=== PATIENT | male | born 1940 | race Caucasian/White ===

== ENCOUNTER 2018-05-07 09:31 | Inpatient (IN) ==
--- NOTE | 2018-05-07 09:59 | PROVIDER DOCUMENTATION ---
HPI-General Adult - General Chief Complaint: Rib Pain Stated Complaint: fall Time Seen by Provider: 05/07/18 09:55 Source: patient, old records Allergies/Adverse Reactions: Patient Allergies Allergy/AdvReac Type Severity Reaction Status Date / Time lisinopril Allergy Intermediate HIVES Verified 05/12/17 10:52 meperidine HCl * Allergy Intermediate Unknown Verified 05/12/17 10:52 [From Demerol] Home Medications: Home Medication List Medication Instructions Recorded Confirmed Last Taken Type Apixaban [Eliquis] 5 mg PO BID 04/27/17 05/07/18 04/26/17 History Omeprazole [Prilosec] 40 mg PO DAILY capsule 05/20/17 05/07/18 Unknown Rx Escitalopram [Lexapro] 1 tab PO DAILY 05/07/18 05/07/18 Unknown History Levetiracetam 1 tab PO DAILY 05/07/18 05/07/18 Unknown History Melatonin/Pyridoxine [Melatonin 5 1 each PO QHS 05/07/18 05/07/18 Unknown History mg Tablet] - History of Present Illness -Gen Adult Nature of Presenting Problems: pt w/ cc: of fall yest afternoon. helped to feet by his , initially 'ok' but later in the evening had incr pain and worsening balance problem. hx of latter w/ frequent falls, walks w/ walker and behind w/ tethering belt. per had been doing better w/ last fall sev'l mos ago until yesterday. denies syncope. has R hemiparesis complicating prior CVA. takes apixaban but denies hx of arrhythmias. on Keppra w/ ? hx of seizures characterized as black out-staring spells. hx of Type 2 DM, but currently on no Rx for latter. pt currently denies diff breathing or abd pain, but cc: pain in R ribs and R hip. last adm 1 yr ago: ADMISSION DATE: 05/13/2017 DISCHARGE DATE: 05/20/2017 HISTORY: This is a 76-year-old, history of coronary artery disease, recent CABG done in 03/06/2017, history of hypertension, hyperlipidemia, lung nodule, lung cancer, had been treated in the past. The patient reports that he has been short of breath and increasing weakness, especially on his right side. He has had several falls and he is not able to do well at home. His is not able to help him walk. Concerned about the right-sided weakness , concerned about his shortness of breath. REVIEW OF PAST MEDICAL HISTORY: 1. Hypertension. 2. Diabetes mellitus type 2. 3. Hyperlipidemia. 4. Lung cancer. 5. Coronary artery disease. CT head revealed L cerebral encephalomalacia suggx stroke/ischemic injury. Review of Systems - Adult - REVIEW OF SYSTEMS - ADULT Constitutional: reports: no symptoms reported Eyes: reports: no symptoms reported Ears, Nose, Mouth & Throat: reports: no symptoms reported Cardiovascular: reports: no symptoms reported Respiratory: reports: no symptoms reported Gastrointestinal: reports: no symptoms reported Genitourinary: reports: no symptoms reported Musculoskeletal: reports: see HPI Integumentary: reports: no symptoms reported Neurological: reports: see HPI Psychiatric: reports: no symptoms reported Endocrine: reports: no symptoms reported Hematologic/Lymphatic: reports: no symptoms reported Allergic/Immunologic: reports: no symptoms reported All Other Systems: Reviewed and Negative Past History - Adult - PAST MEDICAL HISTORY-ADULT Review of Records: reports: Old Records Reviewed Major Childhood Illnesses: reports: denies history Cardiovascular: reports: blood clots, CAD, HTN, hyperlipidemia Respiratory: reports: cancer Gastrointestinal: reports: denies history Obstetrical/Gynecological: reports: denies history Genitourinary: reports: denies history Musculoskeletal: reports: denies history Neurological: reports: CVA Endocrine/Immune: reports: Diabetes Other Conditions: reports: other - PRIOR SURGERIES/PROCEDURES Surgical/Procedure History: reports: CABG - IMMUNIZATION STATUS Childhood Immunizations: See Nurse Assessment Flu Vaccine: See Nurse Assessment - FAMILY HISTORY Family History: reviewed, not pertinent Physical Exam-General - PHYSICAL EXAM-ADULT Initial Vital Signs Reviewed: Yes - CONSTITUTIONAL General Appearance: alert, no apparent distress - EYES Eyes: PERRL/EOMI. negative: photophobia, sclera injected, scleral icterus - HEAD, EARS, NOSE, MOUTH & THROAT HENMT: normocephalic/atraumatic, moist mucous membranes, normal ENT inspection - NECK Neck: non-tender, full range of motion - RESPIRATORY Respiratory: lungs clear, normal breath sounds, other (tender in anterior- inferior R ribs, no ecchymosis or obv sign of injury.). negative: retractions, splinting, crepitus - CARDIOVASCULAR Cardiovascular: normal peripheral pulses, regular rate, rhythm - GASTROINTESTINAL (ABDOMEN) Abdominal Exam: normal bowel sounds, non tender, soft - LYMPHATIC Lymphatic: no adenopathy - MUSCULOSKELETAL Back Exam: normal inspection, no CVA tenderness, no vertebral tenderness, other (skin tear R olecranon; tiny abrasion PIP jx R #5 hand) Extremity: normal range of motion Peripheral Pulses: radial (R): 2+, radial (L): 2+ - SKIN Integumentary: normal turgor, warm/dry (slight pallor). negative: cyanosis, jaundice - NEUROLOGIC Neurologic: corrosion control fitter II-XII nml as tested, focal weakness (residual R hemiparesis leg > UE) Progress - PLAN OF CARE/RESULTS Progress/Plan/Lab Results: Vital Signs - 8 hr 05/07/18 09:42 Pulse Rate 76 Respiratory Rate 18 Blood Pressure 153/53 O2 Sat by Pulse Oximetry 91 L imaging shows normal hip but fx of RIGHT 8th & 10th ribs, with concurrent very large LEFT pleural effusion and pneumonia or atelectasis (pt had small-moderate L pl effusion 2017). will discuss w/ Dr. Palencia. Result Diagrams: 05/07/18 20:15 05/07/18 11:19 - CONSULTS/PCP/HOSPITALIST Notification Time Discussed: 11:56 Reason/Comments: discussed findings w/ Dr. Palencia who will see the patient here Consult Disposition: Will see in ED Departure - Departure Date of Disposition Decision: 05/07/18 Time of Disposition Decision: 15:50 DIAGNOSIS: Multiple rib fractures, Frequent falls, Pleural effusion, left Disposition: ADMITTED INPATIENT 09 Certified Medical Emergency: Emergent Condition: Stable - Critical Care Note This patient required my direct & personal management of CC.: No Attestation - Physician/ JOHANN Attestation The physician spent face to face time with patient:: Yes Advanced Practice Provider documentation review:: Supervising physician onsite and consulted in the evaluation and care of this patient. The physician did have a face to face encounter with the patient.
--- NOTE | 2018-05-07 11:02 | Diag Imaging Result Doc PS360 ---
EXAM: XRAY HIP UNILATERAL RT 05/07/2018 HISTORY: fall, trauma, pain TECHNIQUE: Right hip two views COMMENT: The hip joint spaces well-maintained. There is no evidence of fracture or dislocation. There is arteriosclerosis. IMPRESSION: No acute bony abnormality. Electronically signed by Lauro Bass 05/07/2018 11:00 AM
--- NOTE | 2018-05-07 11:02 | Diag Imaging Result Doc PS360 ---
EXAM: RIBS UNILAT W/PA CHEST RIGHT 05/07/2018 HISTORY: fall, trauma, pain TECHNIQUE: PA chest with right rib series 5 views COMMENT: There is a large left pleural effusion and a smaller right pleural effusion. Compared to the previous study of 05/13/2017 there is near complete opacification of the left hemithorax and there is increased alveolar and interstitial opacity throughout the right lung. There is a cardiac loop recorder on the left. There are numerous surgical clips to the left the midline and there are sternotomy wires. No evidence of pneumothorax is present. There is minimally displaced fracture of the distal 10th rib on the right. Some deformity of the distal eighth rib is also present which may be due to fracture. IMPRESSION: 1. Large left pleural effusion with pneumonia and/or atelectasis. 2. Pulmonary edema. 3. Fractures of the distal eighth and 10th ribs on the right. Electronically signed by Lauro Bass 05/07/2018 10:59 AM
[2018-05-07 11:53] LABS: AGAP 9; ALB/GLOB RATIO 0.8; ALBUMIN 3.1 g/dL (3.5-5.0); ALKALINE PHOSPHATASE 93 U/L (32-122); BUN 15 mg/dL (8-22); CALCIUM 8.3 mg/dL (8.8-10.2); CHLORIDE 95 mmol/L (98-107); COSMO 265; CREATININE 0.5 mg/dL (0.7-1.2); ESTIMATED GFR > 60; GLUCOSE 120 mg/dL (70-104); GOT 12 U/L (10-34); GPT 7 U/L (10-44); MAGNESIUM 1.8 mg/dL (1.5-2.7); POTASSIUM 4.3 mmol/L (3.5-5.1); SODIUM 131 mmol/L (136-145); TCO2 27 mmol/L (25-35); TOTAL BILIRUBIN 0.22 mg/dL (0.20-1.00); TOTAL PROTEIN 7.1 g/dL (6.3-8.3)
[2018-05-07] MEDS ORDERED: PERCOCET-10 PO ONE (12:26)
[2018-05-07 12:35] LABS: BASO# 0.03 X1000 (0.0-0.2); BASO% 0.3 % (0.0-0.8); EOS# 0.28 X1000 (0.0-0.7); EOS% 2.4 % (0.0-10.0); HEMOGLOBIN 8.7 g/dL (14.0-18.0); IMM GRAN# 0.04 X1000 (0.0-0.04); IMM GRAN% 0.3 % (0.0-0.5); LYMPH% 12.1 % (20.5-51.1); MCH 17.9 PG (27-31); MCHC 28.1 g/dL (33-37); MCV 63.8 FL (81-99); MONO# 0.68 X1000 (0.11-0.59); MONO% 5.9 % (1.7-9.3); MPV 9.5 FL (7.4-10.4); NEUT# 9.18 X1000 (1.4-6.5); PLT 397 X1000 (130-400); RBC 4.86 XMIL (4.7-6.1); RDW 17.3 % (11.5-14.5); WBC 11.61 X1000 (4.8-10.8)
[2018-05-07 12:44] LABS: BANDS 6 % (0-1); LYMPHS 16 % (21-51); MONO 4 % (1-9); SEGS 74 % (42-75)
[2018-05-07 12:45] LABS: ANISOCYTOSIS 1+; HYPOCHROM 1+; MICROCYTOSIS 2+; POIKILOCYTOSIS 1+
--- NOTE | 2018-05-07 13:59 | HISTORY AND PHYSICAL ---
HISTORY OF PRESENT ILLNESS: He said for the last 2 weeks he has noticed increased dyspnea, increased shortness of breath. The last 3 or 4 days he has fallen quite a bit more and he did fall today and broke some ribs. His rib x-rays revealed left large pleural effusion with pneumonia or atelectasis, pulmonary edema, fractures of the distal 8th and 10th rib on the right. He is in quite a bit of pain, increased dyspnea. He did have an x-ray of his right hip 2 views, no acute bony abnormality. He denies any fever or chills. Mainly the shortness of breath and of course, the right-sided pain after the fall. Denies any previous pleuritic pain. No real orthopnea or paroxysmal nocturnal dyspnea. PAST MEDICAL HISTORY: 1. Hypertension. 2. Diabetes mellitus type 2. 3. Hyperlipidemia. 4. Lung cancer. 5. Coronary artery disease. PAST SURGICAL HISTORY: 1. CABG done in 03/06/2017 at [facility] and at that time I believe he had a left pleural effusion as well. I believe they tapped the effusion. I think it was transudative if I remember the report. I do remember we were at one point watching or observing a questionable mass in his lungs. This was before his bypass surgery back in 2017 or 2016. ALLERGIES: Allergic to lisinopril as well as meperidine and hydrochlorothiazide. SOCIAL HISTORY: No cigarette smoking, alcohol or drugs. FAMILY HISTORY: Positive for diabetes mellitus. REVIEW OF SYSTEMS: General: Up to about two weeks ago, he was making progress and getting a little stronger. HEENT: Denies any change in visual or hearing acuity. No neck pain. Respiratory: No increased work of breathing and dyspnea until 2 weeks ago and it has just progressively gotten worse. Increased dyspnea with exertion. General weakness seems to have gotten worse. Balance is worse in the last couple of weeks and he has fallen several times in last couple of days. Cardiovascular: No chest pain or tachy palpitation. Gastrointestinal and Genitourinary: No gross hematuria or dysuria. No change in bowels or urination. Immunologic/hematologic: No significant history. PHYSICAL EXAMINATION: GENERAL: Well developed, well nourished, thin white male. VITALS: Afebrile, pulse 73, respirations 18, blood pressure 159/70. HEENT: Pupils are equal and round. Oral and nasal mucosa unremarkable. Conjunctivae pink, sclerae clear. Tympanic membranes intact. NECK: Supple without adenopathy, thyromegaly. CVP less than 6 cm. ABDOMEN: Soft, nondistended, nontender. EXTREMITIES: Without clubbing, cyanosis, or edema. SKIN: Warm and dry. Conjunctivae, oral mucosa unremarkable. HEIGHT/WEIGHT: Weight 180 pounds height 5 feet 11 inches. LABORATORY: White count 11,610, hematocrit 31, platelet count 397,000. Sodium 131, potassium 4.3, chloride 95, BUN 15, creatinine 0.5, albumin was 3.1. Hip x-ray which was right hip, 2 views, no bony abnormality. X-ray of the ribs with rib detail, large left pleural effusion with pneumonia or atelectasis, pulmonary edema, fracture of the distal 8th and 10th rib on the right. ASSESSMENT AND PLAN: 1. Recent falls with increased weakness and fractured ribs on the right. 2. Large left pleural effusion with atelectasis. It appears that entire left side has been wallace out. I am going to ask Pulmonary to help follow. I think Dr. Trevizo has seen him in the past. 3. Coronary artery disease, status post CABG. I do not see any evidence of active ischemia. 4. Diabetes mellitus type 2. We will check pattern sugars. 5. History of hypercholesterolemia. 6. History of hypertension. 7. Transaminases were normal, albumin was 3.1. I will go ahead and empirically put him on some antibiotic for possible pneumonia and I will give him some bronchodilators and ask Dr. Trevizo to help. cc: Km Palencia MD
[2018-05-07] MEDS ORDERED: ZOFRAN IV PRN (14:57)
[2018-05-07] MEDS ORDERED: ZOSYN 4.5 GM in NS 100 ML IV SCH (15:00)
[2018-05-07] MEDS: NS 1,000 ML IV SCH (15:20)
[2018-05-07] MEDS: PERCOCET-10 PO PRN (18:00)
--- NOTE | 2018-05-07 20:15 | Diag Imaging Result Doc PS360 ---
CT THORAX W/CONTRAST - 05/07/2018 INDICATION: hx of lung cancer, effusion, rib fracture COMPARISON: 04/05/2017 FINDINGS: There is an increasing, loculated pleural effusion at the lateral left lung base. This occupies about 40% of the lung. There is a trace right pleural effusion. There is mild cardiomegaly. There is significant consolidation of both lung bases. There is interstitial pulmonary edema bilaterally. There is some mild paratracheal adenopathy similar to prior. No visible fractures. There are sternotomy wires. IMPRESSION: 1. Moderate, probably loculated effusion at the lateral left lung base. 2. Pulmonary edema. 3. Consolidation of the lung bases consistent with atelectasis and/or pneumonia. This exam was performed using automated exposure control, adjustment of mA or kV according to patient size, and/or use of iterative reconstruction technique Electronically signed by Tony Mccollum 05/07/2018 8:13 PM
[2018-05-07 20:47] LABS: BASO# 0.03 X1000 (0.0-0.2); BASO% 0.2 % (0.0-0.8); EOS# 0.52 X1000 (0.0-0.7); HEMOGLOBIN 8.4 g/dL (14.0-18.0); IMM GRAN# 0.03 X1000 (0.0-0.04); IMM GRAN% 0.2 % (0.0-0.5); LYMPH# 1.53 X1000 (1.2-3.4); LYMPH% 11.9 % (20.5-51.1); MCH 17.4 PG (27-31); MCHC 27.1 g/dL (33-37); MCV 64.3 FL (81-99); MONO# 0.93 X1000 (0.11-0.59); MONO% 7.2 % (1.7-9.3); MPV 9.6 FL (7.4-10.4); NEUT# 9.85 X1000 (1.4-6.5); NEUT% 76.5 % (42.2-75.2); PLT 390 X1000 (130-400); RBC 4.82 XMIL (4.7-6.1); RDW 17.3 % (11.5-14.5); WBC 12.89 X1000 (4.8-10.8)
[2018-05-07 21:40] LABS: BANDS 1 % (0-1); EOS 2 % (1-10); LYMPHS 9 % (21-51); MONO 3 % (1-9); SEGS 85 % (42-75)
[2018-05-07 21:41] LABS: ANISOCYTOSIS 1+; HYPOCHROM 1+; MICROCYTOSIS OCCASIONAL; OVALOCYTES OCCASIONAL; POIKILOCYTOSIS 1+
[2018-05-07] MEDS: ELIQUIS PO SCH (22:24)
[2018-05-07] MEDS: MELATONIN PO SCH (22:24)
[2018-05-07] MEDS: ZOSYN 4.5 GM in NS 100 ML IV SCH (22:24)
[2018-05-08] MEDS: ZOSYN 4.5 GM in NS 100 ML IV SCH ×4 (04:28→22:42)
--- NOTE | 2018-05-08 04:48 | PULMONOLOGY CONSULTATION ---
DATE: 05/07/2018 REQUESTING PHYSICIAN: Dr. Km Palencia. REASON FOR CONSULTATION: To help evaluate and treat. HISTORY OF PRESENT ILLNESS: Mr. Benitez is a 78-year-old white male, a never smoker, who was evaluated in my clinic 11/16/2014. The patient had a biopsy-proven non-small cell carcinoma, with a 2.2 cm lesion in the right upper lobe, with an ipsilateral lymph node measuring 2.2 cm with an SUV of 3.7. Right upper lobectomy was recommended. The patient was being evaluated by Dr. Sergo Sifuentes. The patient elected not to have surgery, and underwent stereotactic body radiotherapy. He was followed and treated by Dr. Joshi. He has not had a subsequent followup in my office. He denies recent PET scan. I did not see his last chest x-ray prior to this admission, but it was in April 2017, which revealed cardiomegaly and small bilateral effusions. His last CT scan of the thorax was performed in March 2017, which revealed moderate effusions, cardiomegaly, possible increased size of right upper lobe mass. The patient has had increased shortness of breath over the last several weeks. He denies fevers or chills. He denies cough or sputum production. PAST MEDICAL HISTORY/PROBLEM LIST: 1. Status post radiation therapy for a stage II lung cancer, as per above. 2. Status post coronary artery bypass grafting. 3. Status post CVA. 4. Dyslipidemia. SOCIAL HISTORY: The patient is a never smoker. FAMILY HISTORY: Notable for diabetes and hypertension. REVIEW OF SYSTEMS: Difficult with mental status. He has difficulty forming a thought process. PHYSICAL EXAMINATION: General: Reveals a well-developed, well-nourished male, resting comfortably, and in no distress. Vital Signs: Blood pressure 160/47, heart rate 82, respiratory rate 16, oxygen saturation 87% on 4 L. HEENT: Pupils are equal and reactive. Oropharynx is clear. Neck: Supple. Chest: Reveals diminished breath sounds bilaterally. Cardiac: S1-S2. Abdomen: Soft. Extremities: Without edema. LABORATORIES: Chest x-ray reveals significant effusion on the left, with fractures of distal 8th and 10th ribs on the right. IMPRESSION: A 78-year-old with history of lung cancer, chronic hypoxemic respiratory failure, progressive increased shortness of breath, left greater than right pleural effusions, with significant weight loss over the last year. RECOMMENDATION: 1. CT scan of the thorax to evaluate pleural effusions. 2. Continue oxygen for hypoxemic respiratory failure. 3. Recommend discontinuing Eliquis if possible, so that thoracentesis can be performed by Radiology early next week. 4. Check a CEA level. 5. Prognosis is guarded. cc: Cory Trevizo MD
[2018-05-08] MEDS: ELIQUIS PO SCH (07:30)
[2018-05-08] MEDS: LEXAPRO PO SCH ×2 (07:30→08:14)
[2018-05-08] MEDS: PERCOCET-10 PO PRN ×3 (07:30→15:40)
[2018-05-08] MEDS: KEPPRA PO SCH ×2 (07:30→08:14)
[2018-05-08] MEDS: PRILOSEC PO SCH ×2 (07:31→08:14)
--- NOTE | 2018-05-08 09:17 | PROGRESS NOTE ---
DATE: 05/08/2018 SUBJECTIVE: Mr. Benitez finally got some sleep. He is having some leg pain. We did give him some Percocet. OBJECTIVE: Vital Signs: His temperature is 98.2 degrees, pulse 74, respirations 18, blood pressure 154/47. Eyes: Pupils are equal. Neck: No distended neck veins. Lungs: Clear in all lung wilkins. Cardiovascular: Regular rhythm and rate without murmur or S3. Abdomen: Soft. Skin: Warm, dry. : Urine output is 1400 mL. X-RAYS: He had a CT of his chest and yesterday moderate probably loculated effusion in the lateral left lung base, pulmonary edema, consolidation of lung bases consistent with atelectasis or pneumonia. ASSESSMENT AND PLAN: 1. Status post radiation treatment for stage II lung cancer. The patient had a biopsy-proven non- small cell lung cancer with a 2.2 cm lesion in the right upper lobe. Ipsilateral lymph node measuring 2.2 cm and right upper lobectomy was recommended. The patient evaluated by Dr. Sergo Sifuentes. Elected to have surgery and underwent stereotactic body radiotherapy. Treated by Dr. Joshi. Had subsequent follow-up with recent PET scan. Revealed cardiomegaly and small pleural effusions. His last CT of the thorax was in March 2017 and repeated yesterday. Possible increased size of right upper lobe mass. He has had increased shortness of breath. He has lost maybe 40 pounds over this last year. So, we are going to try and tap his pleural fluid. The left is greater than the right. We are holding his Eliquis. 2. He has a history of coronary artery disease status post CABG. The CABG was done I think in 03/06/2017. 3. Diabetes mellitus type 2. We will follow pattern sugars. 4. History of hypertension. LABS: From yesterday, hematocrit 31, hemoglobin 8.4, so he does have an anemia which appears stable. Sodium 131, potassium 4.3, chloride 95, BUN 15, creatinine 0.5. Review of his orders: He is getting fluid right now of normal saline at 65 mL an hour. We will stop his Eliquis. He is on piperacillin 4.5 g IV q. 6 hours. Continue his Keppra 500 mg a day and Lexapro 10 mg a day. The Keppra he is taking I believe for possible seizures in the past. cc: Km Palencia MD
[2018-05-08] MEDS: NS 1,000 ML IV SCH ×2 (12:00→23:34)
[2018-05-08] MEDS: MELATONIN PO SCH (22:42)
[2018-05-09] MEDS: ZOSYN 4.5 GM in NS 100 ML IV SCH ×5 (03:39→21:02)
[2018-05-09] MEDS: NS 1,000 ML IV SCH ×2 (03:40→17:37)
--- NOTE | 2018-05-09 03:41 | PULMONOLOGY PROGRESS NOTE ---
DATE: 05/08/2018 SUBJECTIVE: The patient is awake and alert. He has not yet been out of bed. He reports his appetite and breathing have improved. OBJECTIVE: Vital Signs: The patient has been afebrile for the last 24 hours. Blood pressure 148/56, heart rate 80, respiratory rate 18, oxygen saturation 94% on nasal cannula. HEENT: Pupils are equal and reactive. Oropharynx is clear. Neck: Supple. Chest: Reveals diminished breath sounds in both lung bases. Cardiac: S1-S2. Abdomen: Soft, without hepatosplenomegaly. Extremities: Reveal trace edema. LABORATORIES: CT scan of the thorax is reviewed. There is trace pleural effusion on the right, with some pleural thickening on the right, and some nonspecific infiltrates right upper lobe, with mild paratracheal adenopathy. He has a large left-sided pleural effusion, with some consolidation in the left, greater than right, lung bases. IMPRESSION: A 78-year-old with history of lung cancer, who presents with abnormal weight loss, bilateral effusions, with areas of consolidation, and chronic hypoxemic respiratory failure. RECOMMENDATIONS: 1. Agree with discontinuing Eliquis, as you have done. 2. Continue oxygen for hypoxemic respiratory failure. 3. Recommend thoracentesis on Thursday to evaluate etiology for his pleural effusions. 4. Prognosis remains guarded. cc: MD Km Harrison MD
[2018-05-09] MEDS: PRILOSEC PO SCH (06:30)
[2018-05-09] MEDS: PERCOCET-10 PO PRN ×4 (07:19→20:32)
--- NOTE | 2018-05-09 08:16 | PROGRESS NOTE ---
DATE: 05/09/2018 SUBJECTIVE: Mr. Benitez says he feels like he is breathing better. He is comfortable, had a good night's sleep last night. Did not have much of an appetite. His bowels are moving well. He hurt his right leg when he fell and so his right leg and hip are sore. OBJECTIVE: Vital Signs: Temperature 98.2 degrees, pulse 72, respirations 18, blood pressure 140/54. HEENT: Pupils are equal and round. Lungs: Clear in all lung wilkins. Cardiovascular Examination: Regular rhythm and rate without murmur or S3. Abdomen: Soft. Skin: Warm and dry. Is and Os: Urine output 1300 mL. ASSESSMENT AND PLAN: 1. History of lung cancer. Presented with abnormal weight loss, bilateral effusions, areas of consolidation, chronic hypoxemic respiratory failure. We have held the Eliquis. I think the plan is to do thoracentesis Thursday to evaluate the pleural effusion. 2. Chronic obstructive pulmonary disease with chronic obstructive pulmonary disease exacerbation, with the pleural fluid. 3. History of coronary artery disease, status post coronary artery bypass graft. This was on 03/06/2017. No sign of active cardiac ischemia. 4. Diabetes mellitus type 2. Continue to check pattern of sugars. 5. Hypertension. REVIEW OF HIS MEDICATIONS: He is taking melatonin 5 mg at night, Lexapro 10 mg a day. He is on Keppra 500 mg daily. I think this was for the history of seizure in the past. He is on Zosyn 4.5 g q.6. cc: Km Palencia MD
[2018-05-09] MEDS: KEPPRA PO SCH (08:32)
[2018-05-09] MEDS: LEXAPRO PO SCH (08:32)
--- NOTE | 2018-05-09 17:38 | PULMONOLOGY PROGRESS NOTE ---
DATE: 05/09/2018 SUBJECTIVE: Patient is awake, alert, and conversant. Nursing reports he has had some periods of confusion. He denies shortness of breath. OBJECTIVE: Vital signs: The patient has been afebrile for the last 24 hours. Blood pressure 150/58, heart rate 70, respiratory rate 18, oxygen saturation 94%. HEENT: Pupils are equal and reactive. Oropharynx is clear. Neck: Supple. Chest: Diminished breath sounds, left greater than right base. Cardiac: S1, S2. Abdomen: Soft. Extremities: Without edema. DIAGNOSTIC STUDIES: No new chemistries or CBC. IMPRESSION: A 78-year-old with: 1. History of lung cancer. 2. Hypoxemic respiratory failure. 3. Bilateral effusions with consolidate areas of parenchymal consolidation. 4. Abnormal weight loss. The patient was on Eliquis, but this has been discontinued. PLAN: 1. Continue oxygen for hypoxemic respiratory failure. 2. Arrange for thoracentesis tomorrow morning. Order has been placed, along with all of the labs to be analyzed. 3. Prognosis remains guarded. cc: MD Km Harrison MD
[2018-05-09] MEDS: MELATONIN PO SCH (20:32)
[2018-05-10] MEDS: ZOSYN 4.5 GM in NS 100 ML IV SCH ×4 (04:27→22:27)
[2018-05-10] MEDS: PERCOCET-10 PO PRN ×2 (04:47→20:25)
--- NOTE | 2018-05-10 09:01 | PROGRESS NOTE ---
DATE: 05/10/2018 SUBJECTIVE: Mr. Benitez is about the same. States his breathing is about the same. Comfortable. His bowels are moving okay, according to his report. He does not have much appetite at all over the last several days. OBJECTIVE: Vital Signs: Temperature 98.8 degrees, pulse 70, respirations 19, blood pressure 152/54. HEENT: Pupils are equal and round. Neck: No distended neck veins. Lungs: With diminished breath sounds at both bases. Otherwise clear. Cardiovascular Examination: Regular rhythm and rate without murmur or S3. Abdomen: Soft. Skin: Warm, dry. Is and Os: Urine output is 1300 mL. ASSESSMENT AND PLAN: 1. Bilateral effusions and some consolidated areas. He is scheduled for an ultrasound-guided paracentesis today. 2. History of lung cancer. He was seen in Dr. Trevizo's clinic on 11/16/2014, biopsy proven non- small cell carcinoma with a 2.2 cm lesion in the right upper lobe, ipsilateral lymph node measuring 2.2 cm with an SUV of 3.7. Right upper lobectomy was recommended. The patient was evaluated by Dr. Sergo Sifuentes. Decided not to have surgery and underwent stereotactic body radiotherapy, followed by and treated by Dr. Joshi. He received a PET scan in followup in April of 2017. He had cardiomegaly and bilateral pleural effusions. His last CT scan of the thorax was March 2017. It revealed moderate effusions, cardiomegaly, and possible increased size of the right upper lobe mass. 3. Status post cerebrovascular accident. 4. History of coronary artery disease. No sign of active ischemia. 5. He is on Keppra only once a day, I think for a history of questionable seizures in the past following his cerebrovascular accident. He is on piperacillin 4.5 g every 6 hours. I will get physical therapy to work with him some. He may need to go to rehab from here. cc: Km Palencia MD
[2018-05-10] MEDS: PRILOSEC PO SCH (10:24)
[2018-05-10] MEDS: LEXAPRO PO SCH (10:24)
[2018-05-10] MEDS: KEPPRA PO SCH (10:24)
[2018-05-10] MEDS: NS 1,000 ML IV SCH (10:24)
--- NOTE | 2018-05-10 14:01 | Diag Imaging Result Doc PS360 ---
EXAM: CHEST-2 VIEWS HISTORY: INSPIR AND EXPIRAT ATTEMTED BIOP TECHNIQUE: Inspiratory and expiratory chest, two views COMPARISON: 05/07/2018 FINDINGS: There is no left-sided pneumothorax. There are infiltrates throughout the lungs with atelectasis. Sternal wires and surgical clips. No cardiomegaly. There is pleural thickening/loculated collections similar to the prior study. IMPRESSION: No postprocedural pneumothorax. Electronically signed by Yong Zamudio 05/10/2018 1:59 PM
--- NOTE | 2018-05-10 14:06 | Diag Imaging Result Doc PS360 ---
EXAM: US THORACENTESIS W/IMAGE GUIDE HISTORY: large left effusion TECHNIQUE: Ultrasound-guided thoracentesis COMPARISON: None. FINDINGS: Prior to the procedure I discussed the risk and benefits with the patient. Primary risks include bleeding, infection, and pneumothorax. Questions were answered. Consent was given. The permit was signed. Ultrasound was used to localize the largest fluid collection. This area was cleaned and draped in the normal fashion. Lidocaine was used as a local anesthetic. Ultrasonography revealed thick tissue with very little fluid. The appearance of fluid on CT was actually shown by ultrasound to be very thick. Needle and catheter were advanced into this collection on the first attempt without difficulty. No fluid could be withdrawn. IMPRESSION: Ultrasound-guided thoracentesis with no immediate complication. No fluid obtained. Electronically signed by Yong Zamudio 05/10/2018 2:03 PM
[2018-05-10] MEDS ORDERED: DUONEB (A & A) INH ONE (16:29)
[2018-05-10 16:42] LABS: ALLEN TEST YES; BE 3.4 mmoll (-3.0-3.0); BLOOD TYPE ARTERIAL; HCO3-(ACT) 27.6 mmoll (20.0-26.0); METHB 0.6 % (0.0-1.5); O2(CT) 11.4 mL/dL (15.0-23.0); O2HB 95.9 % (95.0-99.0); PO2(98.6) 151 mmHg (60-100); SAMPLE BLOOD; SAO2 96.8 % (95.0-100.0); THB 8.2 g/dL (11.5-17.4); pH(98.6) 7.36 (7.35-7.45)
[2018-05-10 16:43] LABS: PCO2(98.6) 52 mmHg (35-45)
[2018-05-10 16:44] LABS: MODALITY NRB
--- NOTE | 2018-05-10 17:16 | Diag Imaging Result Doc PS360 ---
EXAM: CHEST-2 VIEWS HISTORY: inspiratory and expiratory chest TECHNIQUE: Chest inspiratory and expiratory chest two views COMPARISON: 1:55 PM FINDINGS: No interval change in the appearance of the chest. No pneumothorax identified. Electronically signed by Yong Zamudio 05/10/2018 5:14 PM
[2018-05-10] MEDS: MELATONIN PO SCH (20:26)
--- NOTE | 2018-05-10 20:45 | PULMONOLOGY PROGRESS NOTE ---
DATE: 05/10/2018 INTERIM HISTORY: The patient went down for a thoracentesis. A catheter was introduced into the left hemithorax by Dr. Yong Zamudio, but due to the viscosity of the fluid, no fluid could be aspirated. OBJECTIVE: Vital Signs: The patient has been afebrile for the last 24 hours. Blood pressure 168/42, heart rate 81, respiratory rate 22, oxygen saturation 98% on non-rebreather. HEENT: Pupils are equal and reactive. Oropharynx is clear. Neck: Supple. Chest: Reveals diminished breath sounds left greater than right base. Cardiac exam: S1-S2. Abdomen: Soft with mild increased tympany. Extremities: Reveal trace edema. IMPRESSION: A 78-year-old with: 1. Acute hypoxemic respiratory failure. 2. History of lung cancer. 3. Coronary artery disease status post bypass grafting. 4. Bilateral pleural effusions with extremely viscous fluid in the left hemithorax. 5. Areas of parenchymal consolidation. 6. Abnormal weight loss. PLAN: 1. I discussed the case with Mr. Benitez's . An aggressive approach would require a thoracotomy. This would be an increased risk for Mr. Benitez. I do not believe he is capable of making the decision. She will discuss this with her sons to decide if we will pursue an aggressive approach. 2. Continue oxygen for hypoxemic respiratory failure. PROGNOSIS: Guarded. cc: MD Km Harrison MD
[2018-05-10] MEDS: DUONEB (A & A) INH SCH ×2 (20:58→23:15)
[2018-05-11] MEDS: DUONEB (A & A) INH SCH ×6 (03:32→23:40)
[2018-05-11] MEDS: ZOSYN 4.5 GM in NS 100 ML IV SCH ×4 (04:23→22:46)
[2018-05-11] MEDS: NS 1,000 ML IV SCH ×2 (06:13→23:19)
[2018-05-11] MEDS: PRILOSEC PO SCH (08:53)
[2018-05-11] MEDS: LEXAPRO PO SCH (08:53)
[2018-05-11] MEDS: KEPPRA PO SCH (08:53)
--- NOTE | 2018-05-11 09:09 | PROGRESS NOTE ---
DATE: 05/11/2018 SUBJECTIVE: Mr. Benitez had a fairly unremarkable night, breathing comfortably at rest. I have had discussions with his and with him, Dr. Trevizo, and I think they would like to pursue a decortication for draining of the left lung. It is very thick fluid, unable to draw any back with pleurocentesis. OBJECTIVE: Vitals: Temperature is 97.6 degrees, pulse 115, respirations 15, blood pressure 152/77. Eyes: Pupils are equal. Neck: No distended neck veins. Lungs: Clear in all lung wilkins. Cardiovascular: Regular rhythm and rate without murmur or S3. Abdomen: Soft. Skin: Warm and dry. URINE OUTPUT: 2400 mL. IMAGING: Chest x-ray from yesterday, no interval change. No pneumothorax. This is following paracentesis. ASSESSMENT AND PLAN: 1. He went down for thoracentesis yesterday. Catheter was introduced in left hemothorax per Dr. Yong Zamudio. Due to viscosity of fluid, no fluid could be aspirated. I did have some long discussions with his . I believe we need to pursue a thoracotomy. We will ask Dr. Sergo Sifuentes and of course, Dr. Cory Trevizo who is on the case. I want to discuss with her sons and with her aggressive approach. Concerned if we are not able to clean up his fluid that his respiratory status will get worse. Continue supplementing O2. Continue bronchodilators at this time. 2. History of lung cancer. He said a right upper lobectomy was recommended, but he did undergo stereotactic radiotherapy by Dr. Joshi who he sees in follow up. Question on whether increase in the right side of his upper lobe mass. They had requested I get Dr. Joshi to help with recommendations. 3. Status post cerebrovascular accident. 4. History of coronary artery disease. 5. He is on Keppra I think for post cerebrovascular accident, questionable seizure. He is only taking it once a day. He is on Zosyn at this time 4.5 g q.6 hours, Lexapro 10 mg a day, Prilosec 40 mg a day, melatonin 5 mg at bedtime. cc: Km Palencia MD
--- NOTE | 2018-05-11 14:25 | CONSULTATION ---
DATE OF CONSULTATION: 05/11/2018 REASON FOR CONSULTATION: History of lung cancer. CONSULTING PHYSICIAN: Dr. Palencia. HISTORY OF PRESENT ILLNESS: I was asked to see Mr. Benitez today at the request of Mr. Benitez's . I treated him back in 2014 for an early stage lung cancer and she was concerned that his current problems may be related to that cancer. ASSESSMENT AND PLAN: I have reviewed his scan and reassured the patient's that the area that we treated has not grown at all since 2016. The abnormality on CT likely represents scar tissue here. I have encouraged her that when they drain the fluid from his lungs that they will check it for cancer cells and I will be happy to see him should they discover that this is the cause of his pleural effusion. At this point in time though, I see no obvious evidence of cancer recurrence. cc: MD Km Grace MD
[2018-05-11] MEDS: PERCOCET-10 PO PRN (14:26)
[2018-05-11] MEDS: MELATONIN PO SCH (20:04)
--- NOTE | 2018-05-11 22:40 | PULMONOLOGY PROGRESS NOTE ---
DATE: 05/11/2018 SUBJECTIVE: The patient is awake and alert. He has no new complaints. OBJECTIVE: General: The patient remains on high-flow oxygen. Vital Signs: He has been afebrile for the last 24 hours. Blood pressure 176/61, heart rate 76, respiratory rate 17, oxygen saturation 95%. HEENT: Pupils are equal and reactive. Oropharynx is clear. Neck: Supple. Chest: Reveals diminished breath sounds, left and right base. Cardiac: Increased rate, regular rhythm. Abdomen: Soft. Extremities: Without edema. LABORATORIES: No new laboratory data. IMPRESSION: 1. A 78-year-old with left greater than right pleural effusions, with extremely viscous fluid in the left hemithorax. 2. Acute hypoxemic respiratory failure. 3. History of lung cancer. 4. Coronary artery bypass grafting. 5. Abnormal weight loss. 6. Areas of parenchymal consolidation in the lung bases. PLAN: 1. After discussion with the patient and his , they would like to pursue drainage/decortication of the left chest. Family asked if a small incision could be made to access sample fluid. This could be performed, but would not likely give him relief or improve his pulmonary status. 2. Continue oxygen for hypoxemic respiratory failure. 3. Await surgical consultation. This has been placed for Dr. Sifuentes, by Dr. Palencia. cc: MD Km Harrison MD
[2018-05-12] MEDS: PERCOCET-10 PO PRN ×3 (02:17→23:28)
[2018-05-12] MEDS: DUONEB (A & A) INH SCH ×6 (02:30→23:27)
[2018-05-12] MEDS: ZOSYN 4.5 GM in NS 100 ML IV SCH ×4 (04:45→21:57)
--- NOTE | 2018-05-12 08:51 | PROGRESS NOTE ---
DATE: 05/12/2018 SUBJECTIVE: Mr. Benitez had a fair night, breathing comfortably at the present time. He remains afebrile. OBJECTIVE: Temperature 97.8, pulse 84, respirations 16, blood pressure 161/63. Pupils are equal. No distended neck veins. Lungs are clear in all lung wilkins. Cardiovascular: Regular rate without murmur or S3. Abdomen is soft. Skin is warm and dry. Urine output was 1280 mL. LABORATORY DATA: His labs reviewed from 05/07/2018. I checked a Chem 12, and a CBC <INC 00:00:52> again tomorrow. ASSESSMENT AND PLAN: 1. A 78-year-old with left greater than right pleural effusion, extremely viscous fluid in the left hemothorax. Dr. Sifuentes to evaluate. I would like to pursue drainage and decortication sedation of the left chest. The family is requesting a small incision and access the sample fluid and let them discuss that with Dr. Sifuentes. 2. Acute hypoxemic respiratory failure. He is on supplementary O2. No bronchospasm. 3. History of lung cancer that area in the right lung. Dr. Joshi evaluated and it appears to be about the same as far as size. 4. Coronary artery bypass grafting in the past. History of coronary artery disease. 5. Abnormal weight loss in the last year. 6. Areas of parenchymal consolidation in the lung bases. He is on Zosyn 4.5 g IV q.6. I am going to stop the Keppra; he is on 500 mg a day, which I do not think would be therapeutic. cc: Km Palencia MD MTDD
[2018-05-12] MEDS: PRILOSEC PO SCH (10:38)
[2018-05-12] MEDS: LEXAPRO PO SCH (10:39)
--- NOTE | 2018-05-12 11:55 | GENERAL SURGERY CONSULTATION ---
DATE: 05/12/2018 HISTORY OF PRESENT ILLNESS: Mr. Benitez is 78-year-old gentleman admitted on with increasing shortness of breath. He was discovered to have a low-density collection at the base of the left pleural space as well as circumscribed and appears to be compressing his left lung and may be contributing to his shortness of breath. However, previous CT thorax done last April. 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 Because of his shortness of breath and this low-density area in the left pleural space, I have been asked to evaluate him. Attempts have been made by radiologist to aspirate fluid, but unsuccessfully. PAST HISTORY: Hypertension, type 2 diabetes, hyperlipidemia, and coronary artery disease. He has had a previous coronary bypass 03/15. He apparently had a left pleural effusion subsequent to that bypass. It appears from previous chest x-rays that he may have had some fluid in the left pleural space before. MEDICATIONS: Listed. ALLERGIES: Lisinopril, meperidine and hydrochlorothiazide. SOCIAL HISTORY: He is . Does not smoke cigarettes or drink alcohol. FAMILY HISTORY: Pertinent for diabetes. REVIEW OF SYSTEMS: As noted above. PHYSICAL EXAMINATION: Vital Signs: He is afebrile. Heart rate 84, blood pressure is 182/69. Respiratory: 16. He has bilateral breath sounds diminished in the left base. Heart: Regular rate and rhythm. Abdomen: Soft. Trace peripheral edema. He is somewhat listless. Responds slowly. DIAGNOSTICS/LABORATORIES: White count 05/07 was 12,000. Gases on the 05/10, pH 7.36, pCO2 53, PO2 151 on 100% non-rebreather. ASSESSMENT: Well-defined low-density collection in the left inferior pleural space. I have discussed the difficulty and risk of a decortication with the family. They have requested that we do just simply a small incision in an attempt to drain the fluid and determine whether it is malignant. We can do pleural biopsy at the same time. We can proceed with this on 05/13. This will allow us to determine how well he tolerates anesthesia, so we discussed that. They understand and agree to proceed. cc: MD Km Bray MD [facility]
[2018-05-12] MEDS ORDERED: LASIX IV ONE (12:11)
--- NOTE | 2018-05-12 12:27 | PULMONOLOGY PROGRESS NOTE ---
DATE: 05/12/2018 SUBJECTIVE: Patient is awake and conversant. It is not clear that he is oriented. OBJECTIVE: Vital Signs: Blood pressure 182/69, heart rate 84, respiratory rate 16, oxygen saturation 92% on non-rebreather. HEENT: Pupils are equal and reactive. Oropharynx is clear. Neck: Supple. Chest: Reveals decreased breath sounds, left greater than right base. Cardiac exam: S1-S2. Abdomen: Soft. Extremities: Reveal trace edema. IMPRESSION: A 78-year-old with: 1. Increasing pleural effusions. 2. Acute hypoxemic respiratory failure. 3. Abnormal weight loss. 4. History of lung cancer. 5. History of coronary artery bypass grafting. Family has discussed surgery with Dr. Sifuentes. They have requested a limited thoracotomy. PLAN: 1. Limited thoracotomy for pathology evaluation. 2. Continue oxygen for hypoxemic respiratory failure. 3. Consider initiation of end of life discussions. cc: MD Km Harrison MD
[2018-05-12] MEDS: NS 1,000 ML IV SCH (16:04)
[2018-05-12] MEDS: MELATONIN PO SCH (20:11)
[2018-05-13] MEDS: ZOSYN 4.5 GM in NS 100 ML IV SCH ×4 (03:13→22:04)
[2018-05-13] MEDS: PERCOCET-10 PO PRN (03:13)
[2018-05-13] MEDS: DUONEB (A & A) INH SCH ×6 (03:33→23:41)
[2018-05-13 06:58] LABS: AGAP 9; ALB/GLOB RATIO 0.8; ALBUMIN 2.8 g/dL (3.5-5.0); ALKALINE PHOSPHATASE 75 U/L (32-122); BUN 13 mg/dL (8-22); CALCIUM 8.7 mg/dL (8.8-10.2); CHLORIDE 96 mmol/L (98-107); COSMO 279; CREATININE 0.6 mg/dL (0.7-1.2); ESTIMATED GFR > 60; GLUCOSE 121 mg/dL (70-104); GOT 8 U/L (10-34); GPT < 5 U/L (10-44); POTASSIUM 3.5 mmol/L (3.5-5.1); SODIUM 139 mmol/L (136-145); TCO2 34 mmol/L (25-35); TOTAL PROTEIN 6.3 g/dL (6.3-8.3)
[2018-05-13] MEDS: NS 1,000 ML IV SCH ×3 (08:02→16:56)
[2018-05-13] MEDS: PRILOSEC PO SCH (08:02)
[2018-05-13] MEDS: LEXAPRO PO SCH (08:02)
--- NOTE | 2018-05-13 08:12 | PROGRESS NOTE ---
DATE: 05/13/2018 SUBJECTIVE: Mr. Benitez had a poor night he had some episodes of delirium and feels short of breath. Plan is to undergo a procedure this morning to see if we can drain out some of the fluid in is left lung, which is apparently very viscous, and decide whether a complete thoracotomy is going to be warranted. OBJECTIVE: Vital Signs: Temperature 98.5 degrees, pulse 70, respirations 20, blood pressure 151/48. HEENT: Pupils are equal and round. Lungs: Clear in all lung wilkins. Cardiovascular: Regular rhythm and rate without murmur or S3. Abdomen: Soft. Skin: Warm and dry. LABORATORY DATA: From yesterday, sodium 139, potassium 3.5, chloride 96, BUN 13, creatinine 0.6, blood sugar 121. Calcium 8.7, AST 8, ALT less than 5, albumin 2.8. ASSESSMENT AND PLAN: 1. Increasing pleural effusions, very thick, so they are going to do a limited thoracotomy and I guess see if they can put in a chest tube. 2. Acute hypoxemic respiratory failure. 3. Abnormal weight loss. 4. History of lung cancer on the right. 5. History of coronary bypass grafting. So, he has a well-defined low-density collection of the left inferior space. so requested just simple small incision with attempt to drain the fluid and determine whether it is malignant, and do a pleural biopsy at that time, so that is going to happen today. cc: Km Palencia MD
[2018-05-13] MEDS ORDERED: FENTANYL ONE (13:46)
[2018-05-13] MEDS ORDERED: XYLOCAINE-MPF 2% ONE (13:47)
[2018-05-13] MEDS ORDERED: AMIDATE ONE (13:47)
[2018-05-13] MEDS ORDERED: QUELICIN (DOSE) ONE (13:47)
[2018-05-13] MEDS ORDERED: NORCURON ONE (13:51)
[2018-05-13] MEDS ORDERED: STERILE WATER INJ. ONE (13:51)
[2018-05-13] MEDS ORDERED: SENSORCAINE-MPF 0.5%/EPI 1:200,000 ONE (14:21)
[2018-05-13] MEDS ORDERED: NS 1,000 ML ONE (15:21)
[2018-05-13 15:37] LABS: ALLEN TEST YES; BE 11.1 mmoll (-3.0-3.0); BLOOD TYPE ARTERIAL; HCO3-(ACT) 33.4 mmoll (20.0-26.0); METHB 0.5 % (0.0-1.5); O2(CT) 10.9 mL/dL (15.0-23.0); PO2(98.6) 54 mmHg (60-100); SAMPLE BLOOD; SAO2 88.7 % (95.0-100.0); THB 8.8 g/dL (11.5-17.4); pH(98.6) 7.28 (7.35-7.45)
[2018-05-13 15:39] LABS: O2HB 87.5 % (95.0-99.0); PCO2(98.6) 85 mmHg (35-45)
[2018-05-13 15:40] LABS: MODALITY NRB
--- NOTE | 2018-05-13 15:41 | EKG Report ---
Test Performed on : 05/13/2018 3:28:10 PM Test Reason : EKG changes Blood Pressure : / mmHG Vent. Rate : 133 BPM Atrial Rate : 129 BPM P-R Int : 000 ms QRS Dur : 148 ms QT Int : 346 ms P-R-T Axes : 000 -35 141 degrees QTc Int : 514 ms Wide QRS tachycardia. Left axis deviation Left bundle branch block Abnormal ECG When compared with ECG of 13-MAY-2017 17:36, Wide QRS tachycardia. has replaced Sinus rhythm. Vent. rate has increased BY 57 BPM Confirmed by Dixon ORTA, Martin Lopes ([id number]) on 05/14/2018 6:50:14 AM
[2018-05-13] MEDS ORDERED: SODIUM CHLORIDE 0.9% 0 ML ONE (16:11)
--- NOTE | 2018-05-13 17:22 | PROGRESS NOTE ---
DATE: 05/13/2018 SUBJECTIVE: They were getting ready for surgery and he seemed to be more short of breath. There were about some EKG changes and so moved him to the unit. I was asked by Cardiology if I would look him over and see if we can tune up his breathing a little better. The surgery was canceled. OBJECTIVE: Vital signs: Temperature 97.9 degrees, pulse 77, respirations 23, blood pressure 164/62. General: The patient is on supplementary O2, using BiPAP. He appears comfortable. DIAGNOSTIC STUDIES: EKG preoperatively shows wide QRS complex, left axis deviation, left bundle branch block. ASSESSMENT AND PLAN: Cardiology asked to see and moved to the unit. Continue his other orders. cc: Km Palencia MD
[2018-05-13] MEDS ORDERED: HALDOL IV PRN (18:49)
[2018-05-13] MEDS: ATIVAN IV PRN (19:55)
[2018-05-13] MEDS ORDERED: LANOXIN IV ONE (20:14)
[2018-05-13] MEDS ORDERED: LASIX IV ONE (20:14)
--- NOTE | 2018-05-13 20:33 | PULMONOLOGY PROGRESS NOTE ---
DATE: 05/13/2018 SUBJECTIVE: The patient was scheduled for surgery today, but developed a new left bundle branch block. He has been transferred to the intensive care unit. He currently is on BiPAP, and appears comfortable. OBJECTIVE: Vital Signs: The patient has been afebrile for the last 24 hours. Blood pressure 153/62, heart rate 74, respiratory rate 17, oxygen saturation 98%. HEENT: Pupils are equal and reactive. Oropharynx evaluation is limited, with BiPAP in place. Neck: Supple. Chest: Reveals diminished breath sounds, left greater than right base. Cardiac: Soft, without hepatosplenomegaly. Extremities: Revealed chronic 1+ edema. IMPRESSION: 1. A 78-year-old with left greater than right pleural effusions, which have increased over the last year. 2. Acute hypoxemic respiratory failure. 3. Abnormal weight loss. 4. History of coronary artery bypass grafting. 5. History of lung cancer. 6. Status post failed thoracentesis due to the viscosity of the pleural fluid. 7. New-onset left bundle branch block. DISCUSSION: The patient's overall status remains poor. He will be a high risk for any interventions. However, prognosis without intervention is also poor. RECOMMENDATIONS: 1. Agree with Cardiology evaluation, given new left bundle branch block. 2. Continue oxygen/BiPAP for hypoxemic respiratory failure. 3. Anticipate end of life discussions to help decide whether an aggressive evaluation such as a thoracotomy, or whether comfort measures, should be the next pathway to be pursued. cc: MD Km Harrison MD
[2018-05-13] MEDS: MELATONIN PO SCH (21:14)
[2018-05-14 01:07] LABS: AGAP 10; BUN 11 mg/dL (8-22); CALCIUM 8.8 mg/dL (8.8-10.2); CHLORIDE 96 mmol/L (98-107); COSMO 290; CREATININE 0.6 mg/dL (0.7-1.2); ESTIMATED GFR > 60; GLUCOSE 130 mg/dL (70-104); MAGNESIUM 1.9 mg/dL (1.5-2.7); POTASSIUM 3.4 mmol/L (3.5-5.1); SODIUM 145 mmol/L (136-145); TCO2 39 mmol/L (25-35)
[2018-05-14] MEDS: DUONEB (A & A) INH SCH ×3 (03:41→11:26)
[2018-05-14] MEDS: ATIVAN IV PRN (04:25)
[2018-05-14] MEDS: ZOSYN 4.5 GM in NS 100 ML IV SCH ×4 (04:43→21:07)
[2018-05-14 05:03] LABS: ALLEN TEST YES; BE 16.9 mmoll (-3.0-3.0); BLOOD TYPE ARTERIAL; HCO3-(ACT) 37.9 mmoll (20.0-26.0); METHB 0.5 % (0.0-1.5); O2(CT) 16.2 mL/dL (15.0-23.0); O2HB 90.2 % (95.0-99.0); PO2(98.6) 59 mmHg (60-100); SAMPLE BLOOD; SAO2 91.1 % (95.0-100.0); THB 12.8 g/dL (11.5-17.4); pH(98.6) 7.37 (7.35-7.45)
[2018-05-14 05:04] LABS: MODALITY BI PAP; PCO2(98.6) 80 mmHg (35-45)
[2018-05-14 06:18] LABS: AGAP 10; ALB/GLOB RATIO 0.8; ALBUMIN 2.8 g/dL (3.5-5.0); ALKALINE PHOSPHATASE 71 U/L (32-122); BUN 10 mg/dL (8-22); CALCIUM 8.7 mg/dL (8.8-10.2); CHLORIDE 97 mmol/L (98-107); COSMO 292; CREATININE 0.5 mg/dL (0.7-1.2); ESTIMATED GFR > 60; GLUCOSE 110 mg/dL (70-104); GOT 8 U/L (10-34); GPT < 5 U/L (10-44); MAGNESIUM 1.8 mg/dL (1.5-2.7); POTASSIUM 3.4 mmol/L (3.5-5.1); SODIUM 147 mmol/L (136-145); TCO2 40 mmol/L (25-35); TOTAL BILIRUBIN 0.25 mg/dL (0.20-1.00); TOTAL PROTEIN 6.4 g/dL (6.3-8.3)
--- NOTE | 2018-05-14 06:48 | Diag Imaging Result Doc PS360 ---
EXAM: CHEST-PORTABLE HISTORY: pleural effusions TECHNIQUE: Portable chest single view COMPARISON: 05/10/2018 FINDINGS: There are sternal wires, surgical clips, and mild cardiomegaly. Poor inspiratory effort. There is a moderate-sized left pleural effusion and a small right effusion. There are infiltrates throughout both lungs similar to the prior study. There are no pneumothoraces. IMPRESSION: Stable chest. Electronically signed by Yong Zamudio 05/14/2018 6:46 AM
[2018-05-14] MEDS: LEXAPRO PO SCH (09:16)
[2018-05-14] MEDS: PRILOSEC PO SCH (09:17)
--- NOTE | 2018-05-14 09:30 | PROGRESS NOTE ---
DATE: 05/14/2018 SUBJECTIVE: Mr. Benitez is on BiPAP. He had a very long night. He had a lot of confusion, delirium, agitation. Seeing the Haldol made things worse, so we tried a little bit of Ativan which seemed to have helped. OBJECTIVE: Vital Signs: Temperature 97.9, pulse 92, respirations 23, blood pressure 155/61. HEENT: Pupils are equal. Neck: No distended neck veins. Lungs: Scattered rhonchi throughout. Decreased breath sounds both bases. No wheezing appreciated. Cardiovascular exam: Irregular rhythm, irregular rate, and monitor shows atrial fibrillation with left bundle branch pattern. Abdomen: Soft. Extremities: No pedal edema. LABS AND X-RAYS: Blood gases yesterday at 6 o'clock: The pH was 7.28. PCO2 85 and PO2 was 54. O2 saturation 87%. This morning: The pH is 7.37, pCO2 is 80, PO2 is 53. He is on BiPAP 60% with pressures of 18/8. Chest x-ray from this morning: Stable chest. Sternal wires. Surgical clips. Mild cardiomegaly. Poor inspiratory effort. Moderate size left pleural effusion and right effusion. There are infiltrates throughout both lungs seen on the prior study. No pneumothorax appreciated. ASSESSMENT AND PLAN: 1. A 78-year-old with left greater than right pleural effusions. These seemed to be very thick and tenacious. We are hoping to try and explore and do a pleural biopsy and get some of this fluid, but developed left bundle branch block and atrial fibrillation and I have moved him to the unit. 2. Acute hypoxemic respiratory failure. Gas exchange seems a little better than yesterday. 3. Abnormal weight loss. 4. History of coronary artery bypass grafting. History of coronary artery disease. 5. History of lung cancer treated with radiation. 6. Status post failed thoracentesis due to viscosity of pleural fluid. 7. Left bundle branch block with atrial fibrillation. Rate is controlled. Cardiology is going to help. The plan is to hope to tune him up a little bit so that we can pursue possible partial thoracotomy. I have had discussion with , who is concerned that he seems to be declining. She still wants everything done, including if he needs to be intubated. We will continue that process and continue present medications. The patient is on Lexapro 10 mg a day. Getting Ativan right now 1 mg every 4 hours as needed, Prilosec 40 mg a day, Zosyn 4.5 grams every 6 hours, Lanoxin 200 (he got just 1 dose of that yesterday). cc: Km Palencia MD
--- NOTE | 2018-05-14 12:57 | EKG Report ---
Test Performed on : 05/13/2018 11:19:55 PM Test Reason : AFIB Blood Pressure : / mmHG Vent. Rate : 091 BPM Atrial Rate : 136 BPM P-R Int : 000 ms QRS Dur : 162 ms QT Int : 420 ms P-R-T Axes : 000 -20 132 degrees QTc Int : 516 ms Atrial fibrillation. with a competing junctional pacemaker. Left bundle branch block Abnormal ECG When compared with ECG of 13-MAY-2018 19:57, (Unconfirmed) Atrial fibrillation. has replaced Wide QRS tachycardia. Confirmed by Dixon ORTA, Martin Lopes ([id number]) on 05/14/2018 9:20:48 PM
[2018-05-14] MEDS ORDERED: CORDARONE IV ONE (15:19)
[2018-05-14] MEDS ORDERED: CORDARONE 360 MG/D5W 360 MG/200 ML IV.SOLN IV ONE (15:21)
[2018-05-14] MEDS: XOPENEX NEB INH SCH ×3 (15:30→23:20)
--- NOTE | 2018-05-14 16:33 | ECHO REPORT ---
ORDER DATE: 05/14/2018 ECHOCARDIOGRAPHIC MEASUREMENTS: 1. Interventricular septum 1.7, left ventricular posterior wall 1.5, diastolic diameter 3.2, left atrium 4.1, aorta 2.9. Aortic valve leaflets are sclerosed, trileaflet. Mitral valve was normal. Tricuspid valve was normal. Pulmonic valve was normal. There is mild mitral regurgitation. 2. There is no aortic stenosis. There is mild aortic regurgitation. 3. Mild tricuspid regurgitation. Peak velocity across the tricuspid valve was 3.5 m/sec. Pulmonary artery systolic pressure of 57 mmHg. 4. Normal left ventricular cavity size. There is concentric left ventricular hypertrophy. Estimated ejection fraction of 45% however tachycardia was present that could overestimate the left ventricular systolic function. There is inferior wall inferoseptal severe hypokinesis. 5. There is no pericardial effusion or obvious intracardiac mass or thrombus. cc: MD Le Conroy PA Allen J. Schmidt, MD
--- NOTE | 2018-05-14 18:25 | EKG Report ---
Test Performed on : 05/14/2018 2:16:34 PM Test Reason : tachycardia Blood Pressure : / mmHG Vent. Rate : 094 BPM Atrial Rate : 277 BPM P-R Int : 000 ms QRS Dur : 150 ms QT Int : 396 ms P-R-T Axes : 000 -36 124 degrees QTc Int : 495 ms Atrial flutter. with variable AV block. Left axis deviation Left bundle branch block Abnormal ECG When compared with ECG of 13-MAY-2018 23:19, (Unconfirmed) Atrial flutter. has replaced Atrial fibrillation. T wave inversion less evident in Lateral leads Confirmed by Martin Metcalf MD ([id number]) on 05/14/2018 9:22:07 PM
--- NOTE | 2018-05-14 18:26 | EKG Report ---
Test Performed on : 05/13/2018 7:57:13 PM Test Reason : HR 126 Blood Pressure : / mmHG Vent. Rate : 126 BPM Atrial Rate : 065 BPM P-R Int : 000 ms QRS Dur : 150 ms QT Int : 370 ms P-R-T Axes : 000 -29 139 degrees QTc Int : 535 ms Wide QRS tachycardia. Left bundle branch block Abnormal ECG When compared with ECG of 13-MAY-2018 19:56, (Unconfirmed) No significant change was found Confirmed by Martin Metcalf MD ([id number]) on 05/14/2018 9:20:35 PM
[2018-05-14] MEDS ORDERED: STERILE WATER INJ. INJ ONE (18:53)
[2018-05-14] MEDS ORDERED: GEODON IM ONE (18:53)
--- NOTE | 2018-05-14 19:40 | CONSULTATION ---
DATE OF CONSULTATION: 05/14/2018 IMPRESSION: 1. Atrial flutter, with a tendency for rapid ventricular rate. 2. Respiratory failure. 3. Pleural effusions, predominantly left-sided, with inability to drain left pleural fluid via thoracentesis due to viscosity. 4. Status post coronary bypass grafting in 2017. 5. Status post cerebrovascular accident in May 2017. 6. Stage II lung cancer (non-small cell), treated with radiation therapy. RECOMMENDATIONS: 1. Echocardiography to assess for pericardial fluid and left ventricular function. 2. Try and suppress atrial flutter with intravenous amiodarone. This will also help control ventricular rate response. HISTORY: This is a 78-year-old white male with a past history of previous coronary bypass grafting in 2016, cerebrovascular accident in May 2017, stage II non-small cell lung cancer, treated with radiation therapy, and hyperlipidemia, was admitted with progressive dyspnea over several weeks. He has been found to have pleural effusion, predominantly left-sided. Attempts were made to pursue thoracentesis. However, left pleural fluid was exceedingly viscous and could not be drained. Plans were being made for limited thoracotomy to try and remove pleural fluid material. However, he has had recent problems with tachycardia, and for this reason, Cardiology was consulted. He has demonstrated tendency for heart rate to be quite variable, jumping up and down. Most recent ECG confirmed atrial flutter. He has underlying left bundle branch block as well. There has been no recent angina. He has longstanding right-sided hemiparesis following his previous cerebrovascular accident in May 2017. PAST MEDICAL HISTORY: 1. Atherosclerotic coronary disease, with history of previous coronary bypass grafting in 2016. 2. Status post cerebrovascular accident May 2018, with right-sided weakness. 3. Stage II lung cancer (non-small cell), treated with radiation therapy. 4. Dyslipidemia. 5. Allergic or intolerant to lisinopril and meperidine. MEDICATIONS PRIOR TO ADMISSION: As listed. SOCIAL HISTORY: He has never smoked. He does not use alcohol. FAMILY HISTORY: Positive for diabetes and hypertension, but negative for premature coronary disease. REVIEW OF SYSTEMS: Pulmonary: Noteworthy for progressive dyspnea. Gastrointestinal: Negative. Constitutional: Negative. The remainder of the review of systems negative/noncontributory beyond history present illness, with 14 total systems reviewed. PHYSICAL EXAMINATION: General: This is an older white male in some respiratory difficulty, on supplemental oxygen per mask. He is awake and appropriately responsive. Vital Signs: Blood pressure 177/91. Heart rate ranging from 99 to 121 beats per minute. Oxygen saturation 93 to 94 percent. HEENT: Extraocular movements intact. Mucous membranes are moist. Neck: Supple, without discernible jugular venous distention. Chest: Auscultation of the chest reveals diminished breath sounds in the left base posteriorly. Cardiac: Reveals a regular rate and rhythm, without appreciable murmur or gallop. Abdomen: Soft. Bowel sounds audible. Extremities: Without edema. Neurologic: Noteworthy for right-sided hemiparesis. PERTINENT DATA: Twelve lead EKG demonstrates atrial flutter and left bundle branch block. LABORATORY DATA: Sodium 147, potassium 3.4, chloride 97, carbon dioxide 40, BUN 10, creatinine 0.5, glucose 110, albumin 2.8. cc: MD Km Amezquita MD
[2018-05-14] MEDS: MELATONIN PO SCH (21:07)
[2018-05-14] MEDS ORDERED: CORDARONE 540 MG in D5W 289.2 ML IV ONE (21:21)
[2018-05-15] MEDS: XOPENEX NEB INH SCH ×6 (03:25→23:30)
[2018-05-15] MEDS: ZOSYN 4.5 GM in NS 100 ML IV SCH ×4 (04:08→21:23)
[2018-05-15 05:03] LABS: ALLEN TEST YES; BE 19.5 mmoll (-3.0-3.0); BLOOD TYPE ARTERIAL; HCO3-(ACT) 40.1 mmoll (20.0-26.0); METHB 0.5 % (0.0-1.5); O2(CT) 12.5 mL/dL (15.0-23.0); O2HB 96.4 % (95.0-99.0); PCO2(98.6) 23 mmHg (35-45); PO2(98.6) 178 mmHg (60-100); SAMPLE BLOOD; SAO2 97.2 % (95.0-100.0); THB 8.9 g/dL (11.5-17.4)
[2018-05-15 05:05] LABS: MODALITY BI PAP; pH(98.6) 7.83 (7.35-7.45)
[2018-05-15] MEDS ORDERED: STERILE WATER INJ. INJ PRN (08:17)
[2018-05-15] MEDS ORDERED: GEODON IM PRN (08:17)
--- NOTE | 2018-05-15 08:40 | Diag Imaging Result Doc PS360 ---
EXAM: CHEST-PORTABLE HISTORY: B pleural effusions TECHNIQUE: Chest single view COMPARISON: 05/14/2018 FINDINGS: There are dense bilateral infiltrates. There is a small right pleural effusion and likely a moderate-sized left pleural effusion. There are sternal wires and surgical clips. Heart is mildly prominent. IMPRESSION: Stable chest. Electronically signed by Yong Zamudio 05/15/2018 8:38 AM
--- NOTE | 2018-05-15 08:42 | PROGRESS NOTE ---
DATE: 05/15/2018 SUBJECTIVE: He is awake. We did give him some Haldol which seems to not work very well for him. It makes him more agitated. So, Geodon seemed to work pretty well. We gave him 20 mg. He does not like the BiPAP. He has respiratory alkalosis this morning. So, we will see if we can take the BiPAP off and get him a little more comfortable. OBJECTIVE: Vital Signs: Temperature 99.3 degrees, pulse 96, respirations 32. HEENT: Pupils are equal and round. Lungs: Clear in all lung wilkins. Cardiovascular exam: Regular rhythm and rate without murmur or S3. Abdomen: Soft. Skin: Warm and dry. : Urine output was 1900 mL. ASSESSMENT AND PLAN: 1. Developed atrial flutter with rapid ventricular rate. So, we will repeat an echocardiogram to assess for any pericardial fluid and left ventricular function and try to suppress atrial flutter with intravenous amiodarone. This will help control his ventricular response, as well as his ventricular rate. 2. Bilateral pleural effusions, left greater than right. Very thick effusions, unable to tap. He appears to have a respiratory alkalosis, so we will see if we can take off the BiPAP and see if his breathing will calm down. 3. Status post coronary bypass grafting 2016. 4. Cerebrovascular accident in May of 2017. 5. Stage II lung cancer, non-small cell which has been treated with radiation on the right side and does not appear to have enlarged. Dr. Joshi has reviewed the films. We will check a Chem 12, magnesium and complete blood count this morning and get a chest x-ray. Will use Geodon for his delirium, agitation. The Haldol did not seem to work very well. Repeat another chest x-ray this morning. cc: Km Palencia MD
[2018-05-15 09:09] LABS: AGAP 10; ALBUMIN 2.9 g/dL (3.5-5.0); ALKALINE PHOSPHATASE 69 U/L (32-122); BUN 9 mg/dL (8-22); CHLORIDE 96 mmol/L (98-107); COSMO 286; CREATININE 0.5 mg/dL (0.7-1.2); ESTIMATED GFR > 60; GLUCOSE 114 mg/dL (70-104); GOT 9 U/L (10-34); GPT < 5 U/L (10-44); MAGNESIUM 1.8 mg/dL (1.5-2.7); SODIUM 144 mmol/L (136-145); TCO2 38 mmol/L (25-35); TOTAL BILIRUBIN 0.36 mg/dL (0.20-1.00); TOTAL PROTEIN 5.9 g/dL (6.3-8.3)
[2018-05-15 09:43] LABS: BASO# 0.07 X1000 (0.0-0.2); BASO% 0.5 % (0.0-0.8); EOS# 0.01 X1000 (0.0-0.7); EOS% 0.1 % (0.0-10.0); HEMATOCRIT 33.8 % (42.0-52.0); HEMOGLOBIN 8.7 g/dL (14.0-18.0); IMM GRAN# 0.06 X1000 (0.0-0.04); IMM GRAN% 0.4 % (0.0-0.5); LYMPH# 1.63 X1000 (1.2-3.4); LYMPH% 11.8 % (20.5-51.1); MCH 17.7 PG (27-31); MCHC 25.7 g/dL (33-37); MCV 68.7 FL (81-99); MONO# 1.19 X1000 (0.11-0.59); MONO% 8.6 % (1.7-9.3); MPV 9.3 FL (7.4-10.4); NEUT# 10.87 X1000 (1.4-6.5); NEUT% 78.6 % (42.2-75.2); PLT 379 X1000 (130-400); RBC 4.92 XMIL (4.7-6.1); RDW 18.3 % (11.5-14.5); WBC 13.83 X1000 (4.8-10.8)
[2018-05-15] MEDS: PRILOSEC PO SCH (09:57)
[2018-05-15] MEDS: LEXAPRO PO SCH (09:57)
[2018-05-15] MEDS: PERCOCET-10 PO PRN ×2 (09:58→21:21)
[2018-05-15 10:27] LABS: LYMPHS 18 % (21-51); MONO 8 % (1-9); SEGS 74 % (42-75)
[2018-05-15 10:28] LABS: ANISOCYTOSIS 2+; HYPOCHROM 2+; MICROCYTOSIS 2+
[2018-05-15 10:40] LABS: ALLEN TEST YES; BE 16.9 mmoll (-3.0-3.0); BLOOD TYPE ARTERIAL; METHB 0.8 % (0.0-1.5); O2(CT) 15.1 mL/dL (15.0-23.0); O2HB 91.1 % (95.0-99.0); PO2(98.6) 62 mmHg (60-100); SAMPLE BLOOD; SAO2 92.4 % (95.0-100.0); THB 11.8 g/dL (11.5-17.4); pH(98.6) 7.44 (7.35-7.45)
[2018-05-15 10:44] LABS: MODALITY BI PAP; PCO2(98.6) 65 mmHg (35-45)
[2018-05-15] MEDS ORDERED: POTASSIUM CHLORIDE 20% LIQUID PO ONE (11:33)
[2018-05-15] MEDS ORDERED: LOPRESSOR PO SCH (14:00)
[2018-05-15] MEDS ORDERED: LOPRESSOR IV PRN (14:45)
--- NOTE | 2018-05-15 15:20 | CARDIOLOGY PROGRESS NOTE ---
DATE: 05/15/2018 SUBJECTIVE: Mr. Benitez continues to have a significant degree of shortness of breath present. He has no real other complaints. He is not having any palpitations. He denies any overt chest pain. PHYSICAL EXAMINATION: Vital Signs: Patient is afebrile. His heart rates are in the 70s to 80s. His blood pressure is 187/72. General: He is in no acute distress. Cardiovascular: He sounds to be in an irregularly irregular rhythm. His current telemetry seems most consistent with possible atrial flutter. He has no lower extremity edema. He has warm and well-perfused lower extremities. Chest: Exam has reduced breath sounds somewhat diffusely. No increased work of breathing. Abdomen: Soft, nontender. PERTINENT DATA: His white count is 13.8, his hematocrit is 33, his platelet count is 379,000. He has a left shift. Sodium is 144, potassium is 3, his BUN is 9, creatinine 0.5, his magnesium level is 1.8. His potassium is 3. He had an echocardiogram performed yesterday that demonstrated an ejection fraction of 45%, however, he was very tachycardic. He had some inferior wall hypokinesis. ASSESSMENT: Mr. Benitez is a 78-year-old gentleman who presented with atrial flutter, pleural effusions. PLAN: He is on amiodarone right now, but otherwise he is not listed to be on the other AV ramón blocking agents. I will add in some metoprolol at initially 12.5 q.6 hours to try to initiate some better rate control in this patient. I will replete his potassium if that has not already been done with oral medications. We will recheck laboratories in the morning. cc: MD Km Mariee MD
--- NOTE | 2018-05-15 20:58 | GENERAL SURGERY PROGRESS NOTE ---
DATE: 05/15/2018 Mr. Benitez appears to be breathing a little bit easier. He still has a tachyarrhythmia with the rate in the 110 to 120 range. Blood pressure 138/70. His O2 saturation is currently 96% on a face mask. He is now on amiodarone to control his rhythm. We will not pursue the chest tube placement and pleural biopsy until we are satisfied that his heart is stable. So, we will continue to follow along. cc: MD Km Bray MD
[2018-05-15] MEDS: MELATONIN PO SCH (21:22)
[2018-05-15] MEDS: LOPRESSOR PO SCH (21:23)
[2018-05-16] MEDS: LOPRESSOR PO SCH ×4 (02:27→22:10)
[2018-05-16] MEDS: XOPENEX NEB INH SCH ×6 (03:10→22:45)
[2018-05-16] MEDS: ZOSYN 4.5 GM in NS 100 ML IV SCH ×4 (04:55→21:49)
[2018-05-16 05:51] LABS: AGAP 4; BUN 15 mg/dL (8-22); CALCIUM 8.9 mg/dL (8.8-10.2); CHLORIDE 95 mmol/L (98-107); COSMO 288; CREATININE 0.7 mg/dL (0.7-1.2); ESTIMATED GFR > 60; GLUCOSE 131 mg/dL (70-104); POTASSIUM 3.5 mmol/L (3.5-5.1); SODIUM 143 mmol/L (136-145); TCO2 44 mmol/L (25-35)
[2018-05-16] MEDS: LEXAPRO PO SCH (08:15)
[2018-05-16] MEDS: PERCOCET-10 PO PRN (08:15)
[2018-05-16] MEDS: PRILOSEC PO SCH (08:15)
--- NOTE | 2018-05-16 09:08 | PROGRESS NOTE ---
DATE: 05/16/2018 SUBJECTIVE: Mr. Benitez is off of his BiPAP. He is talking to me. He had a better night. Did not have the confusion and agitation that he had the night before, the previous 2 nights. The Percocet seems to help as far as his discomfort. OBJECTIVE: Vital Signs: Temperature 97.3 degrees, pulse 108, respirations 20, blood pressure 133/74. HEENT: Pupils are equal. No distended neck veins. Lungs: With scattered rhonchi. Decreased breath sounds in both bases. Left diminished breath sounds to about the lower 1/3. Cardiovascular Examination: Irregular rhythm, irregular rate. He appears to be in atrial flutter still on the monitor. Abdomen: Soft. Extremities: No pedal edema. Is and Os: Urine output 1000 mL. ASSESSMENT AND PLAN: 1. Atrial flutter. Rate is controlled. He is on amiodarone. We added metoprolol 12.5 mg every 6 hours, see if we can initiate better atrioventricular ramón control. Seems to be doing better. 2. Bilateral pleural effusions, left greater than right. General surgery following, Dr. Elie Sifuentes. Hoping to pursue chest tube placement and pleural biopsy when he is stable. 3. History of coronary artery disease, status post coronary artery bypass grafting in 2017. 4. History of cerebrovascular accident in May 2017. 5. History of stage II lung cancer, non-small cell, treated with radiation on the right side. That does not appear to have changed radiographically. Dr. Joshi and Dr. Trevizo have reviewed the films. 6. Review of lab from yesterday, white count 13,830, hematocrit 33, platelet count 379,000. Chemistries this morning, sodium 143, potassium 3.5, chloride 95, BUN 15, creatinine 0.7. Troponins were low, less than 0.01. 7. In regards to his respiratory failure, he is off the BiPAP. A little bit better air and gas exchange but he does have CO2 retention. He is off the BiPAP. His pH has improved. cc: Km Palencia MD
--- NOTE | 2018-05-16 13:07 | CARDIOLOGY PROGRESS NOTE ---
DATE: 05/16/2018 SUBJECTIVE: Mr. Benitez had no complaints overnight. Family is present in the room. OBJECTIVE: Vitals: He is afebrile. Heart rate over the last 12 hours or so appears predominantly in the 60s to 90s. Blood pressure is 143/87. Generally: No acute distress. Cardiovascular: He sounds to be in an irregularly irregular rhythm. His telemetry currently shows atrial flutter with variable conduction in the 60s to 70s. He has no lower extremity edema. Chest: Shows coarse breath sounds diffusely. No increased work of breathing. He is currently on BiPAP. Abdomen: Soft, nontender, nondistended. No obvious organomegaly. PERTINENT DATA: Sodium 143, potassium 3.5, BUN 15, creatinine 0.7. ASSESSMENT: Mr. Benitez is a 78-year-old gentleman with a history of atrial flutter and pleural effusions. Amiodarone was discontinued yesterday. We initiated metoprolol at a dose of 25 q.6 with p.r.n. Lopressor as well. He seems to be tolerating that well with good control of his rate. I do not have any acute cardiovascular recommendations at this time. Primary Cardiology Team will be back tomorrow to resume care of the patient. cc: MD Km Mariee MD
[2018-05-16] MEDS ORDERED: LASIX IV ONE (21:14)
--- NOTE | 2018-05-16 21:35 | Diag Imaging Result Doc PS360 ---
EXAM: CHEST-PORTABLE - 05/16/2018 HISTORY: decreased oxygen saturation TECHNIQUE: Portable chest COMPARISON: None. FINDINGS: The left hemithorax is largely opacified by infiltrate and pleural fluid similar to prior. There is extensive infiltrate on the right similar to prior. There is a small to medium right pleural effusion which may have increased mildly. There is no evidence of pneumothorax. The left heart border is partially obscured the heart size appears grossly stable. IMPRESSION: The left hemithorax is largely opacified by infiltrate and pleural fluid, similar to prior. There is extensive infiltrate on the right, similar to prior. There is a small to medium right pleural effusion, which may have increased mildly. Electronically signed by Rolf Venegas 05/16/2018 9:33 PM
[2018-05-16 21:43] LABS: ALLEN TEST YES; BE 17.9 mmoll (-3.0-3.0); BLOOD TYPE ARTERIAL; HCO3-(ACT) 38.9 mmoll (20.0-26.0); METHB 0.8 % (0.0-1.5); O2(CT) 13.4 mL/dL (15.0-23.0); O2HB 95.8 % (95.0-99.0); PO2(98.6) 160 mmHg (60-100); SAMPLE BLOOD; SAO2 97.1 % (95.0-100.0); THB 9.7 g/dL (11.5-17.4); pH(98.6) 7.21 (7.35-7.45)
[2018-05-16 21:46] LABS: BASO# 0.03 X1000 (0.0-0.2); BASO% 0.2 % (0.0-0.8); HEMATOCRIT 38.2 % (42.0-52.0); HEMOGLOBIN 9.2 g/dL (14.0-18.0); IMM GRAN# 0.16 X1000 (0.0-0.04); IMM GRAN% 1.3 % (0.0-0.5); LYMPH# 0.76 X1000 (1.2-3.4); LYMPH% 6.3 % (20.5-51.1); MCH 17.7 PG (27-31); MCHC 24.1 g/dL (33-37); MCV 73.5 FL (81-99); MONO# 0.64 X1000 (0.11-0.59); MONO% 5.3 % (1.7-9.3); MPV 9.3 FL (7.4-10.4); NEUT# 10.51 X1000 (1.4-6.5); NEUT% 86.9 % (42.2-75.2); PLT 386 X1000 (130-400); RDW 18.1 % (11.5-14.5)
[2018-05-16 21:46] LABS: MODALITY BI PAP; PCO2(98.6) 124 mmHg (35-45)
[2018-05-16] MEDS: MELATONIN PO SCH (22:10)
[2018-05-16 22:28] LABS: AGAP 8; ALB/GLOB RATIO 0.9; ALBUMIN 3.1 g/dL (3.5-5.0); ALKALINE PHOSPHATASE 74 U/L (32-122); BUN 22 mg/dL (8-22); CHLORIDE 96 mmol/L (98-107); COSMO 292; CREATININE 0.8 mg/dL (0.7-1.2); ESTIMATED GFR > 60; GLUCOSE 172 mg/dL (70-104); GOT 8 U/L (10-34); GPT 5 U/L (10-44); POTASSIUM 3.7 mmol/L (3.5-5.1); SODIUM 143 mmol/L (136-145); TCO2 39 mmol/L (25-35); TOTAL BILIRUBIN 0.33 mg/dL (0.20-1.00); TOTAL PROTEIN 6.5 g/dL (6.3-8.3)
[2018-05-16 22:51] LABS: ALLEN TEST YES; BLOOD TYPE ARTERIAL; HCO3-(ACT) 39.7 mmoll (20.0-26.0); METHB 0.4 % (0.0-1.5); O2(CT) 13.2 mL/dL (15.0-23.0); O2HB 96.3 % (95.0-99.0); PO2(98.6) 166 mmHg (60-100); SAMPLE BLOOD; SAO2 97.6 % (95.0-100.0); THB 9.5 g/dL (11.5-17.4); pH(98.6) 7.21 (7.35-7.45)
[2018-05-16 22:53] LABS: MODALITY BI PAP; PCO2(98.6) 127 mmHg (35-45)
[2018-05-16] MEDS ORDERED: QUELICIN IV ONE (23:10)
[2018-05-16] MEDS ORDERED: AMIDATE IV ONE (23:11)
[2018-05-16] MEDS ORDERED: AMIDATE ONE (23:17)
[2018-05-16] MEDS ORDERED: QUELICIN ONE (23:17)
[2018-05-16] MEDS: DIPRIVAN 1% 1,000 MG/100 ML BOTTLE IV SCH (23:27)
[2018-05-17] MEDS: LOPRESSOR PO SCH ×4 (01:13→20:37)
[2018-05-17] MEDS: DIPRIVAN 1% 1,000 MG/100 ML BOTTLE IV SCH ×6 (02:18→21:23)
[2018-05-17] MEDS: XOPENEX NEB INH SCH ×6 (03:30→23:30)
[2018-05-17] MEDS: ZOSYN 4.5 GM in NS 100 ML IV SCH ×4 (04:01→22:07)
[2018-05-17 04:46] LABS: ALLEN TEST YES; BLOOD TYPE ARTERIAL; HCO3-(ACT) 40.5 mmoll (20.0-26.0); METHB 0.7 % (0.0-1.5); PO2(98.6) 69 mmHg (60-100); SAMPLE BLOOD; SAO2 95.9 % (95.0-100.0); SRATE 14 BPM; THB 7.4 g/dL (11.5-17.4); TVOL 550 mL; pH(98.6) 7.54 (7.35-7.45)
[2018-05-17 04:52] LABS: PCO2(98.6) 52 mmHg (35-45)
[2018-05-17 04:53] LABS: MODALITY VENTILATOR
--- NOTE | 2018-05-17 07:16 | Diag Imaging Result Doc PS360 ---
EXAM: CHEST-PORTABLE INDICATION: intubated TECHNIQUE: One view COMPARISON: 05/16/2018 FINDINGS: Bilateral pleural effusions and diffuse bilateral infiltrates, worse on the left, are approximately stable. The ET tube is in stable position. No new consolidation is identified. Cardiac silhouette is stable. IMPRESSION: Stable chest. Electronically signed by William Mondragon 05/17/2018 7:14 AM
--- NOTE | 2018-05-17 07:18 | Diag Imaging Result Doc PS360 ---
EXAM: CHEST-PORTABLE INDICATION: ETT placement TECHNIQUE: One view COMPARISON: 05/16/2018 FINDINGS: There is a newly placed ET tube. The tip projects over the trachea and above the moe at about the T5 level. Bilateral diffuse infiltrates and bibasilar pleural effusions are unchanged. No new consolidation is identified. Cardiac silhouette is stable. IMPRESSION: Interval placement of ET tube as described. Stable chest, otherwise. Electronically signed by William Mondragon 05/17/2018 7:16 AM
--- NOTE | 2018-05-17 08:46 | PROGRESS NOTE ---
DATE: 05/17/2018 SUBJECTIVE: Mr. Benitez was intubated at about 11:00 yesterday evening. Increased hypoxemia, increased CO2 retention. OBJECTIVE: Vital Signs: He remains afebrile. Temp 96.9 degrees, pulse 60, respirations 14, blood pressure 109/44. HEENT: Pupils are equal. Neck: No distended neck veins. Lungs: Anterolateral with diminished breath sounds in the bases. Cardiovascular: He is back in sinus rhythm. Regular rhythm and rate. He did have some bradycardia this morning. Abdomen: Soft. Extremities: No pedal edema. Neurologic: He is intubated and sedated. Urine output was 1700 mL. IMAGING: Chest x-ray from this morning: Bilateral pleural effusions, diffuse bilateral infiltrates, worse on the left, proximally stable. ET tube in good position. No new consolidation identified. ASSESSMENT AND PLAN: 1. History of atrial flutter. He is back in sinus rhythm. Amiodarone was discontinued yesterday. I initiated metoprolol at a dose of 25 mg every 6 hours as needed. 2. Respiratory failure, hypoxemia, hypercapnia. He is intubated. 3. Bilateral pleural effusions, left greater than right. Very thick effusions. Unable to pull any back on thoracentesis. We were considering putting a chest tube in. However, developed atrial flutter and more respiratory distress, so trying to improve his respiratory status. 4. Bilateral infiltrates. Will continue broad-spectrum antibiotics. I may want to broaden that coverage. I am going to ask Dr. Leija to help follow from Infectious Disease. 5. Stage II lung cancer on the right side, which had been treated with radiation and chemotherapy, and it appears to be stable radiographically. 6. Nutrition. Will need to decide about feeding. Will place a nasogastric tube. He will need that for medications as well. CURRENT MEDICATIONS: Lopressor 25 mg at bedtime. Will stop his melatonin. He is getting Tylenol 650 mg p.o. every 6 hours p.r.n., and he is on Lexapro, which we will stop, and he is on oxycodone, which we will stop as well. Right now, I have him on Zosyn 4.5 grams IV every 6 hours, and I think we will increase his antibiotic coverage considering vancomycin, but will see what Dr. Leija wants to do. cc: Km Palencia MD
--- NOTE | 2018-05-17 09:13 | Diag Imaging Result Doc PS360 ---
EXAM: CHEST-PORTABLE HISTORY: Verify NG placement TECHNIQUE: Single view COMPARISON: 5:15 AM FINDINGS: Endotracheal tube in good position. A nasogastric tube has been placed which overlies the esophagus and stomach. There has been no other interval change. IMPRESSION: Nasogastric tube in good position. Electronically signed by Yong Zamudio 05/17/2018 9:10 AM
--- NOTE | 2018-05-17 09:16 | EKG Report ---
Test Performed on : 05/17/2018 00:26:57 AM Test Reason : ICU 8. No order in [place] Blood Pressure : / mmHG Vent. Rate : 052 BPM Atrial Rate : 052 BPM P-R Int : 238 ms QRS Dur : 160 ms QT Int : 504 ms P-R-T Axes : 032 -26 107 degrees QTc Int : 468 ms Sinus bradycardia. with 1st degree AV block. Left bundle branch block Abnormal ECG When compared with ECG of 14-MAY-2018 14:16, Sinus rhythm. has replaced Atrial flutter. Vent. rate has decreased BY 42 BPM T wave inversion more evident in Lateral leads Confirmed by Dixon ORTA, Martin Lopes ([id number]) on 05/17/2018 3:28:52 PM
[2018-05-17] MEDS: ZYVOX 600 MG/D5W 600 MG/300 ML IVPB IV SCH ×2 (09:39→20:38)
[2018-05-17] MEDS: PROTONIX IV SCH (09:39)
[2018-05-17] MEDS: SODIUM CHLORIDE 0.9% INJ SCH (09:39)
--- NOTE | 2018-05-17 10:00 | PULMONOLOGY PROGRESS NOTE ---
DATE: 05/17/2018 INTERIM HISTORY: Review of the weekend was noted. The patient had progressive respiratory failure, along with some confusion. He may have had a minor aspiration event. He required intubation and initiation of mechanical ventilation. He currently is sedated. OBJECTIVE: Vital signs: The patient has been afebrile for the last 24 hours. He was in atrial flutter, but appeared to have converted back to sinus rhythm. Blood pressure 109/44, respiratory rate 14, oxygen saturation 100%. HEENT: Pupils are equal and reactive. Oropharynx appears clear. Neck: Supple. Chest: Reveals diminished breath sounds, left greater than right. Cardiac: S1, S2. Abdomen: Soft with rare bowel sounds. Extremities: Without edema. DIAGNOSTIC STUDIES: Arterial blood gas from this morning pH 7.54, pCO2 of 52, PO2 of 169. White blood count 12.1, hemoglobin 9.2, platelet count 396,000. Sodium 143, potassium 3.7, chloride 96, bicarbonate 39, BUN 22, creatinine 0.8, glucose 172. Chest x-ray reveals endotracheal tube in good position with infiltrates, left greater than right. IMPRESSION: 1. A 78-year-old with left greater than right pleural effusion with thick pleural fluid which could not be aspirated with a needle. 2. Status post treatment for early stage lung cancer with radiation therapy. 3. Acute hypoxemic respiratory failure. 4. Acute hypercapnic respiratory failure. 5. Abnormal weight loss. 6. New-onset left bundle branch block, atrial flutter, now back in sinus rhythm. 7. History of coronary artery disease with bypass grafting. DISCUSSION: The patient has required intubation and initiation of mechanical ventilation due to progressive respiratory insufficiency. He does not have an easily correctable process from a medication standpoint. Infectious Disease has been consulted, but this would be a very unusual presentation for a malignancy, given the viscous nature of his pleural effusion. His prognosis is guarded to poor. He will likely require a thoracotomy to regain some lung function, but is at risk for a major surgery. RECOMMENDATIONS: 1. Await Infectious Disease evaluation. 2. Continue ventilatory support. 3. Surgery versus end of life discussions with the family. 4. Prognosis is poor. cc: MD Km Harrison MD
--- NOTE | 2018-05-17 10:11 | INFECTIOUS DISEASE CONSULT REP ---
DATE: 05/17/2018 CONCLUSION: The patient who is had radiation therapy for lung cancer. He has had progressive worsening of his pulmonary status to the point that he now has bilateral infiltrates and bilateral pleural effusions, and he is on the ventilator. The exact cause of this is uncertain to me. The patient was seen to aspirate food and this certainly could be contributing to his pulmonary deterioration. Other types of infection also could be involved. The patient also may have an immunoglobulin deficiency. The patient's blood gases show a pH of 7.54, a PO2 of 69, and a pCO2 of 52. The patient's CBC shows a white count of 12,100, hemoglobin 9.2, and platelet count 386,000. Creatinine is 0.8, GFR is greater than 60. Liver function studies are normal. Blood cultures are negative. Chest x-ray shows bilateral diffuse infiltrates and pleural effusions. RECOMMENDATIONS: I agree with treating the patient with Zosyn. To this, I have added Zyvox and I have ordered immunoglobulin levels, Aspergillus antigen, QuantiFERON, cryptococcal antigen, histoplasma antigen. The patient is unable provide a history and no family member is present. The information I obtained was from the computer. PAST MEDICAL HISTORY: Positive for hypertension, diabetes mellitus, hyperlipidemia, lung cancer which was treated with radiation therapy, and coronary artery disease. PAST SURGICAL HISTORY: Patient has had coronary artery bypass grafting done. SOCIAL HISTORY: The patient does not smoke cigarettes, drink alcoholic beverages or abuse drugs. FAMILY HISTORY: Positive for diabetes mellitus. REVIEW OF SYSTEMS: Unable to obtain. PHYSICAL EXAMINATION: Vital Signs: Temperature is 97.8 degrees, pulse 60, respirations 14, blood pressure 109/44. General: This is an ill-appearing, elderly male. He is intubated and sedated. Head/eyes/ears/nose/throat: No drainage noted from the nose or ears. Neck: No meningismus. Lungs: There were bilateral rhonchi. There were diminished breath sounds also. Cardiovascular: Heart rate is regular. Abdomen: Soft and nontender. Neurologic: The patient is sedated. He did not respond to verbal stimuli. He did not have a tremor. Integument: No rash noted. Thank you for the consult. cc: MD Km Sheikh MD
[2018-05-17 11:47] LABS: AGAP 10; BUN 27 mg/dL (8-22); CALCIUM 8.8 mg/dL (8.8-10.2); CHLORIDE 96 mmol/L (98-107); COSMO 294; CREATININE 0.9 mg/dL (0.7-1.2); ESTIMATED GFR > 60; GLUCOSE 107 mg/dL (70-104); MAGNESIUM 1.9 mg/dL (1.5-2.7); POTASSIUM 3.2 mmol/L (3.5-5.1); SODIUM 145 mmol/L (136-145); TCO2 39 mmol/L (25-35)
--- NOTE | 2018-05-17 12:09 | GENERAL SURGERY PROGRESS NOTE ---
DATE: 05/17/2018 SUBJECTIVE: Mr. Benitez is much more comfortable on the ventilators. His heart rate is 66 in sinus rhythm. Blood pressure is fine. If all are in agreement, we can take him back to the operating room and attempt to place the left chest tube, and get a pleural biopsy if possible. I have discussed this with his , who is ready to proceed. cc: MD Km Bray MD
[2018-05-17] MEDS ORDERED: VERSED ONE (16:28)
[2018-05-17] MEDS ORDERED: SENSORCAINE 0.5%-EPI 1:200,000 ONE (16:55)
[2018-05-17] MEDS ORDERED: ROBINUL ONE (17:08)
[2018-05-17] MEDS ORDERED: NORCURON ONE (17:08)
[2018-05-17] MEDS ORDERED: NEO-SYNEPHRINE ONE (17:08)
[2018-05-17] MEDS ORDERED: STERILE WATER INJ. ONE (17:08)
--- NOTE | 2018-05-17 18:18 | Diag Imaging Result Doc PS360 ---
EXAM: CHEST-PORTABLE HISTORY: chest tube placement TECHNIQUE: Chest single view COMPARISON: 8:59 AM FINDINGS: Interval placement of a left-sided chest tube. The tip overlies the mid chest. No definite change in the size of the left effusion/pleural thickening. Endotracheal and nasogastric tubes are unchanged. No other interval interval change. IMPRESSION: Left chest tube overlies the mid chest. Electronically signed by Yong Zamudio 05/17/2018 6:16 PM
--- NOTE | 2018-05-17 18:52 | OPERATIVE NOTE ---
PROCEDURE DATE: 05/17/2018 PROCEDURE: Placement of left chest tube and pleural biopsy. SURGEON: Sergo Sifuentes MD. PIPELINES MANAGER: KASHMIR Kraft. PREOP DIAGNOSIS: 1. Loculated left pleural effusion. 2. Respiratory failure. POSTOP DIAGNOSIS: 1. Loculated left pleural effusion. 2. Respiratory failure. DESCRIPTION OF PROCEDURE: The patient was on the ventilator was brought to the operating room, placed in the decubitus position left side up. The left posterior lateral chest was prepped and draped in a sterile fashion. Actually before we prepped him, we imaged between the ribs to identify what we thought was the pleural cavity with fluid. So we marked the spot where we thought we could enter the pleural space into the loculated effusion. After prep and drape in a sterile fashion we then anesthetized skin 0.5 Marcaine with epinephrine. We made oblique incision and carried our incision between the ribs. We got down to the pleura and was very thickened. I used a 11 blade actually to incise the pleura and then digitally entered the space and introduced the 32 trocar chest tube gently into the space with old bloody fluid evacuated. There was no fresh bleeding. We then obtained a pleural biopsy forceps and biopsied some of the pleural surface to be certain there was no evidence of malignancy. After placing the chest tube we secured it on both sides with 0 silk stitches. Sterile gauze dressing was applied. He tolerated it well. Was sent back to the recovery room in satisfactory condition. cc: MD Km Bray MD
[2018-05-18] MEDS: LOPRESSOR PO SCH ×3 (02:37→20:02)
[2018-05-18] MEDS: DIPRIVAN 1% 1,000 MG/100 ML BOTTLE IV SCH ×5 (02:45→19:32)
[2018-05-18] MEDS: XOPENEX NEB INH SCH ×6 (03:30→23:15)
[2018-05-18] MEDS: ZOSYN 4.5 GM in NS 100 ML IV SCH ×4 (04:18→22:00)
[2018-05-18 04:33] LABS: ALLEN TEST YES; BE 23.6 mmoll (-3.0-3.0); BLOOD TYPE ARTERIAL; HCO3-(ACT) 43.3 mmoll (20.0-26.0); METHB 0.3 % (0.0-1.5); O2(CT) 10.3 mL/dL (15.0-23.0); O2HB 94.5 % (95.0-99.0); PO2(98.6) 64 mmHg (60-100); SAMPLE BLOOD; SAO2 95.6 % (95.0-100.0); SRATE 14 BPM; THB 7.7 g/dL (11.5-17.4); TVOL 500 mL
[2018-05-18 04:35] LABS: MODALITY VENTILATOR; PCO2(98.6) 54 mmHg (35-45)
[2018-05-18 05:52] LABS: AGAP 6; BUN 20 mg/dL (8-22); CALCIUM 8.1 mg/dL (8.8-10.2); CHLORIDE 98 mmol/L (98-107); COSMO 297; CREATININE 0.8 mg/dL (0.7-1.2); ESTIMATED GFR > 60; GLUCOSE 209 mg/dL (70-104); POTASSIUM 3.2 mmol/L (3.5-5.1); SODIUM 145 mmol/L (136-145); TCO2 41 mmol/L (25-35)
--- NOTE | 2018-05-18 06:36 | Diag Imaging Result Doc PS360 ---
EXAM: CHEST-PORTABLE HISTORY: ventilator TECHNIQUE: Portable chest single view COMPARISON: 05/17/2018 FINDINGS: No change in the endotracheal tube, nasogastric tube, or left-sided chest tube. Diffuse bilateral infiltrates persist. There is bilateral atelectasis and pleural fluid. No change in the left pleural fluid or pleural thickening. IMPRESSION: No interval improvement. Electronically signed by Yong Zamudio 05/18/2018 6:32 AM
--- NOTE | 2018-05-18 07:28 | EKG Report ---
Test Performed on : 05/18/2018 06:42:18 AM Test Reason : Aflutter Blood Pressure : / mmHG Vent. Rate : 062 BPM Atrial Rate : 062 BPM P-R Int : 242 ms QRS Dur : 162 ms QT Int : 538 ms P-R-T Axes : 011 -40 109 degrees QTc Int : 546 ms Sinus rhythm. with 1st degree AV block. Left axis deviation Left bundle branch block Abnormal ECG When compared with ECG of 17-MAY-2018 00:26, T wave inversion now evident in Anterior leads QT has lengthened Confirmed by Dixon ORTA, Martin Lopes ([id number]) on 05/19/2018 6:35:04 AM
--- NOTE | 2018-05-18 08:29 | GENERAL SURGERY PROGRESS NOTE ---
DATE: 05/18/2018 SUBJECTIVE: Mr. Benitez is resting comfortably. OBJECTIVE: Heart rate 63, blood pressure 134/60. He is currently on 45% FiO2; whereas, yesterday he was on 60%. He has drained 500 mL of old bloody fluid from his chest tube. PLAN: I would suspect that we should repeat his CT scan tomorrow, on 05/19/2018, to look for interval improvement. cc: MD Km Bray MD
[2018-05-18] MEDS: SODIUM CHLORIDE 0.9% INJ SCH (08:48)
[2018-05-18] MEDS: PROTONIX IV SCH (08:48)
[2018-05-18 09:39] LABS: INR 1.13; PROTIME 15.5 Seconds (11.0-16.0)
--- NOTE | 2018-05-18 09:45 | PULMONOLOGY PROGRESS NOTE ---
DATE: 05/18/2018 INTERIM HISTORY: The patient was taken to the operating room yesterday, and a posterior chest tube was placed. Old dark blood was aspirated. He has returned on mechanical ventilation. OBJECTIVE: Vital Signs: The patient has been afebrile for the last 24 hours, blood pressure 122/83, heart rate 60, respiratory rate 14, oxygen saturation 96%. HEENT: Pupils are equal and reactive. Oropharynx appears clear. Neck: Supple. Chest: Coarse rhonchi bilaterally. Cardiac: S1, S2. Abdomen: Soft with positive bowel sounds. Extremities: Increase edema in the left arm. IMAGING AND LABORATORY DATA: White blood count 145, potassium 3.2, chloride 98, bicarbonate 41, BUN 20, creatinine 0.8. White blood count 12.10, hemoglobin 9.2, platelet count 386,000. Sputum culture is pending. Chest x-ray reveals some residual fluid in the left chest, but does reveal significant drainage with increased aeration. Arterial blood gas reveals a pH of 7.56, pCO2 of 54, PO2 of 64. IMPRESSION: A 78-year-old with chronic anticoagulation, left greater than right pleural effusion with evidence of hemothorax, status post radiation treatment for early-stage lung cancer, acute hypoxemic respiratory failure, acute hypercapnic respiratory failure, abnormal weight loss, with history for coronary artery bypass grafting. DISCUSSION: A 78-year-old with increasing pleural effusion. A chest tube has been placed, and findings are consistent with hemothorax, which appears to be nonacute. The patient is on chronic anticoagulation, but the etiology of bleeding into the thorax is not completely clear. He has had some radiographic improvement with chest tube placement. RECOMMENDATIONS: 1. Continue ventilatory support. 2. Can change Jevity to Glucerna given elevation in glucoses. 3. Agree with plans for followup CT scan tomorrow. 4. Avoid anticoagulation at this juncture. Will consider low-dose anticoagulation, such as Lovenox in the near future. cc: MD Km Harrison MD
[2018-05-18] MEDS: ZYVOX 600 MG/D5W 600 MG/300 ML IVPB IV SCH ×2 (09:53→21:00)
[2018-05-18] MEDS ORDERED: NS 250 ML ONE (10:50)
[2018-05-18] MEDS ORDERED: LASIX IV ONE (11:23)
[2018-05-18 11:59] LABS: pH(98.6) 7.56 (7.35-7.45)
--- NOTE | 2018-05-18 12:08 | INFECTIOUS DISEASE PROGRESS NO ---
DATE: 05/18/2018 SUBJECTIVE: The patient has what appears to be a bilateral pneumonia. There may be an element of aspiration involved. MEDICATIONS: 1. The patient has been on Zosyn for 11 days. 2. Yesterday I started the patient on Zyvox. PHYSICAL EXAMINATION: Vital Signs: Temperature is 98.8 degrees, pulse 64, respirations 14, blood pressure 142/52. General: This is an ill-appearing elderly male. He is intubated and sedated. Head, eyes, ears, nose, and throat: The patient has an orotracheal tube in place. There is no drainage from his nose or ears. Neck: No meningismus. Lungs: There were there were bilateral rhonchi. Cardiovascular: Heart rate is regular. Abdomen: Soft and not tender. Neurologic: The patient is sedated. The patient did not respond to verbal stimuli. He does not have a tremor. LAB AND X-RAY: [place] [address], hemoglobin 9.2, platelet count 386,000. Blood gases show a pH of 7.56, a pO2 of 64, and a pCO2 of 54, creatinine 0.8, GFR is greater than 60. Chest x-ray shows bilateral infiltrates atelectasis and bilateral pleural effusions. Blood and sputum cultures are negative. Immunoglobulin levels are in the normal range. Cryptococcal antigen is negative. ASSESSMENT AND PLAN: Patient has pneumonia in both lungs. My plan is to continue antibiotic treatment with the combination of Zyvox and Zosyn. Patient has a bilateral pneumonia. There could be an element of aspiration. My plan is to continue the current antibiotics pending more data pad. COMORBIDITIES: The patient has diabetes mellitus and lung cancer. cc: MD Km Sheikh MD
[2018-05-18] MEDS: HUMULIN R SUBQ SCH ×2 (12:22→18:07)
--- NOTE | 2018-05-18 12:27 | Diag Imaging Result Doc PS360 ---
EXAM: CHEST-PORTABLE HISTORY: Verify PICC placement TECHNIQUE: Single view COMPARISON: 5:19 AM FINDINGS: Interval placement of a left-sided PICC line. Tip overlies the superior vena cava. There is been no other significant interval change. IMPRESSION: Left PICC line over the superior vena cava. Electronically signed by Yong Zamudio 05/18/2018 12:25 PM
[2018-05-18] MEDS: POTASSIUM CHLORIDE 20 MEQ/SWI 20 MEQ/100 ML IVPB IV SCH ×2 (14:45→16:37)
--- NOTE | 2018-05-18 16:45 | PROGRESS NOTE ---
DATE: 05/18/2018 SUBJECTIVE: Mr. Benitez is comfortable. His blood pressure has done well through the day. His urine output has increased. We have a PICC line placed, NG tube. We have changed him to Glucerna. He is intubated. OBJECTIVE: Vital signs: Temperature is 98.7, remains afebrile, pulse 69, respirations 15, blood pressure 165/60. HEENT: Pupils are equal and round. Lungs: Clear anterolateral. Chest tube on the left side. He has had about 100 mL more drainage today, blood-tinged fluid, dark. His urine output is 1500 mL. IMAGING: Chest x-ray from this morning, left PICC line in superior vena cava. No other significant change. Chest x-ray early this morning showed no interval improvement. He has endotracheal tube and nasogastric tube in place. Left-sided chest tube. Diffuse bilateral infiltrates persist. Bilateral atelectasis and left pleural fluid and pleural thickening. LAB: From today white count 12,100, stable, hematocrit 38, hemoglobin 9.2, platelet count 386,000. Chemistries: Sodium 145, potassium 3.2, chloride 98, BUN 20, creatinine 0.8. Blood sugars 204, 209, 228, 193. ASSESSMENT AND PLAN: 1. Appears to have bilateral pneumonia, suspect aspiration. He has been on Zosyn for 11 days and Zyvox was started yesterday, so broad-spectrum coverage. He is on the ventilator. Continue vent management per Pulmonary. 2. Bilateral pleural effusions, left greater than right. Chest tube in the left side. He had increasing pleural effusion. Findings are consistent with hemothorax and appears to be nonacute. The patient is on chronic anticoagulation, but the etiology of the bleeding thorax is not completely clear. He has had some radiographic improvement with chest tube. 3. Diabetes mellitus type 2. Getting Glucerna. Following pattern sugars. 4. History of coronary artery disease. Aware. 5. Stage II lung cancer on the right side, status post radiation and chemotherapy. 6. Recently had some atrial flutter. He is back in sinus rhythm. Cardiology is following. 7. Review of his orders. I see nothing to change at this point. He is on his linezolid 600 mg q.12 and getting Zosyn 4.5 g q.6 hours. cc: Km Palencia MD
--- NOTE | 2018-05-18 17:42 | ECHO REPORT ---
ORDER DATE: 05/18/2018 INTERPRETING PHYSICIAN: Dr. Rubi CLINICAL INDICATIONS: This is a 78-year-old male with bilateral pleural effusions with respiratory failure. This is a limited study to reassess ejection fraction. The patient was in atrial fibrillation at the time of prior study. SUMMARY OF 2-DIMENSIONAL IMAGIN. The left ventricle shows enlargement. The left ventricular systolic function is at least mildly impaired. Global ejection fraction is somewhere in the range of 45% to 50%. There is atypical contractility of the interventricular septum and probably there is some hypokinesis of the septum proper. 2. The lateral wall and the apex show good contractility. 3. The mitral valve shows mild to moderate degree of regurgitation. There is thickening of the mitral valve and the annulus. 4. Aortic valve shows mild degree of regurgitation. 5. The pulmonic valve appears to be grossly normal. 6. The rest of the chambers appear to be normal in size. 7. Question of pericardial effusion, very small. cc: MD Le Christianson PA Allen J. Schmidt, MD
[2018-05-19] MEDS: HUMULIN R SUBQ SCH ×4 (00:10→17:32)
[2018-05-19] MEDS: DIPRIVAN 1% 1,000 MG/100 ML BOTTLE IV SCH ×6 (00:15→21:59)
[2018-05-19] MEDS: XOPENEX NEB INH SCH ×6 (03:15→23:35)
[2018-05-19] MEDS: ZOSYN 4.5 GM in NS 100 ML IV SCH ×4 (03:20→21:30)
[2018-05-19 04:58] LABS: ALLEN TEST YES; BE 23.9 mmoll (-3.0-3.0); BLOOD TYPE ARTERIAL; HCO3-(ACT) 43.6 mmoll (20.0-26.0); METHB 0.2 % (0.0-1.5); O2(CT) 10.9 mL/dL (15.0-23.0); O2HB 94.7 % (95.0-99.0); PO2(98.6) 72 mmHg (60-100); SAMPLE BLOOD; SAO2 95.9 % (95.0-100.0); SRATE 14 BPM; THB 8.1 g/dL (11.5-17.4); TVOL 500 mL; pH(98.6) 7.53 (7.35-7.45)
[2018-05-19 04:59] LABS: MODALITY VENTILATOR
[2018-05-19 05:00] LABS: PCO2(98.6) 59 mmHg (35-45)
[2018-05-19 06:18] LABS: ESTIMATED GFR > 60
[2018-05-19 06:22] LABS: AGAP 10; BUN 15 mg/dL (8-22); CALCIUM 7.4 mg/dL (8.8-10.2); CHLORIDE 99 mmol/L (98-107); COSMO 299; CREATININE 0.7 mg/dL (0.7-1.2); GLUCOSE 108 mg/dL (70-104); POTASSIUM 3.2 mmol/L (3.5-5.1); SODIUM 150 mmol/L (136-145); TCO2 41 mmol/L (25-35)
[2018-05-19 06:31] LABS: MAGNESIUM 1.9 mg/dL (1.5-2.7); PHOSPHORUS 1.7 mg/dL (2.7-4.5)
--- NOTE | 2018-05-19 07:36 | Diag Imaging Result Doc PS360 ---
CHEST-PORTABLE - 05/19/2018 INDICATION: ventilator COMPARISON: 05/18/2018 FINDINGS: Support lines and tubes are stable. Stable small moderate pleural effusions bilaterally. Stable cardiomegaly and pulmonary vascular congestion. Stable diffuse bilateral infiltrates/pulmonary edema. IMPRESSION: No change from prior. Electronically signed by Tony Mccollum 05/19/2018 7:34 AM
[2018-05-19] MEDS: NS NEB INH SCH ×3 (07:51→15:39)
--- NOTE | 2018-05-19 09:02 | Diag Imaging Result Doc PS360 ---
EXAM: CT THORAX W/O CONTRAST 05/19/2018 HISTORY: s/p chest tube drainage TECHNIQUE: This exam was performed using automated exposure control, adjustment of mA or kV according to patient size, and/or use of iterative reconstruction technique. COMMENT: The current examination is compared with the previous study of 05/07/2018. There is an endotracheal tube with its tip well above the moe. There continues to be interstitial edema, atelectasis, and then irregular nodular opacity in the right upper lobe. This is less extensive than on the previous study and is likely at least in part due to atelectasis. The loculated fluid collection in the left pleural space which was present at the time the previous study has diminished considerably in volume. There is still loculated effusion present on the right. There is a chest tube on the left exiting posteriorly. There is an NG tube with its tip in the stomach. Otherwise, there has been no apparent change. IMPRESSION: Improved left loculated pleural fluid collection status post chest tube drainage. Electronically signed by Lauro Bass 05/19/2018 9:00 AM
[2018-05-19] MEDS: SODIUM CHLORIDE 0.9% INJ SCH (09:31)
[2018-05-19] MEDS: PROTONIX IV SCH (09:31)
[2018-05-19] MEDS: LOPRESSOR PO SCH ×2 (09:32→21:30)
[2018-05-19] MEDS: ZYVOX 600 MG/D5W 600 MG/300 ML IVPB IV SCH ×2 (09:32→21:30)
--- NOTE | 2018-05-19 10:00 | PROGRESS NOTE ---
DATE: 05/19/2018 SUBJECTIVE: Mr. Benitez's blood pressure has remained good. He has loose stools, of course is getting tube feeding and antibiotics. Still active drainage from his left chest tube, blood- tinged drainage. OBJECTIVE: Vital Signs: Temperature 96.6 degrees, pulse 65, respirations 14, blood pressure 145/53. HEENT: Pupils are equal. Neck: No distended neck veins. Lungs: Clear anterolateral. Decreased breath sounds in the left base. Chest tube in place. Abdomen: Soft. Skin: Warm and dry. Extremities: No pedal edema. LABORATORY DATA: Blood sugars 209, 143, 118. On lab from yesterday, sodium 140, potassium 3.2, chloride 99, BUN 15, creatinine 0.5. He has good urine output. The urine output appears to be 4600 mL DIAGNOSTIC STUDIES: Chest CT done this morning with improved left loculated pleural fluid collection status post chest tube drainage. Chest x-ray from this morning with no change from prior. Support lines and tubes are stable. Stable small to moderate pleural effusion bilateral. Stable cardiomegaly and pulmonary vascular congestion. Stable diffuse bilateral infiltrates. ASSESSMENT AND PLAN: 1. Pleural effusion and possibly this was traumatic pleural effusion as he had a fall recently with some fractured ribs. I think he was on Plavix at the time. It appears to have improved on the CT scan with the chest tube draining. 2. Respiratory failure. Hopefully, can pursue weaning him off the ventilator. 3. Treating him for bilateral infiltrates, probable aspiration pneumonia. Continue present antibiotics. 4. Diabetes mellitus type 2. He is on Glucerna tube feeding. Follow pattern sugars. 5. History of coronary artery disease. Aware. 6. Stage II lung cancer on the right side, status post radiation and chemotherapy. 7. Recent atrial flutter. He is back in sinus rhythm and remains in sinus rhythm. We will check electrolytes and follow his chest x-rays. 8. His current medications are reviewed. I do not see any change. He is on linezolid 600 mg IV q.12 and Zosyn 4.5 g IV q.6. cc: Km Palencia MD
[2018-05-19 11:24] LABS: BASO# 0.06 X1000 (0.0-0.2); BASO% 0.4 % (0.0-0.8); EOS# 0.18 X1000 (0.0-0.7); EOS% 1.3 % (0.0-10.0); HEMATOCRIT 28.8 % (42.0-52.0); HEMOGLOBIN 7.4 g/dL (14.0-18.0); IMM GRAN# 0.05 X1000 (0.0-0.04); IMM GRAN% 0.4 % (0.0-0.5); LYMPH# 1.75 X1000 (1.2-3.4); LYMPH% 12.3 % (20.5-51.1); MCH 17.7 PG (27-31); MCHC 25.7 g/dL (33-37); MCV 69.1 FL (81-99); MONO# 1.02 X1000 (0.11-0.59); MONO% 7.2 % (1.7-9.3); MPV 10.2 FL (7.4-10.4); NEUT# 11.18 X1000 (1.4-6.5); NEUT% 78.4 % (42.2-75.2); PLT 248 X1000 (130-400); RBC 4.17 XMIL (4.7-6.1); WBC 14.24 X1000 (4.8-10.8)
--- NOTE | 2018-05-19 11:32 | PULMONOLOGY PROGRESS NOTE ---
DATE: 05/19/2018 SUBJECTIVE: The patient is currently on a sedation vacation. He is not yet following commands. He remains on mechanical ventilation. OBJECTIVE: Vital signs: The patient has been afebrile for the last 24 hours, blood pressure 134/51, heart rate 65, respiratory rate 14, oxygen saturation 94%. HEENT: Pupils are equal and reactive. Oropharynx appears clear. Neck: Supple. Chest: Reveals better air flow in the left chest. Cardiac: S1, S2. Abdomen: Soft with positive bowel sounds. Extremities: Reveal edema, left greater than right upper extremities. DIAGNOSTIC STUDIES: CT scan of the thorax was performed which reveals decreased loculated pleural fluid in the left chest, but significant amount of parenchymal consolidation in the left lower lobe and continued pleural thickening/effusion is present in the left base. CBC is pending. Arterial blood gas reveals pH 7.53, pCO2 of 59, PO2 of 72. Sodium 150, potassium 3.2, chloride 99, bicarbonate 41, BUN 15, creatinine 0.7, glucose 108. IMPRESSION: A 78-year-old with: 1. Acute hypoxemic respiratory failure. 2. Acute hypercapnic respiratory failure. 3. Abnormal weight loss. 4. Hemothorax. 5. Status post radiation therapy for early stage lung cancer. 6. Protein calorie malnutrition. RECOMMENDATIONS: 1. Discussed case with Dr. Sifuentes. I believe the patient might benefit from tPA placement in the left chest in an attempt to clear additional residual blood out of the left chest, decreasing his possible need for thoracotomy. 2. Increase free water for hypernatremia. 3. Increased Glucerna for protein calorie malnutrition. 4. Replace phosphorus. 5. Recommendations pending hospital course. cc: MD Km Harrison MD
[2018-05-19 11:36] LABS: ANISOCYTOSIS 2+; EOS 2 % (1-10); HYPOCHROM 2+; LYMPHS 12 % (21-51); MICROCYTOSIS 2+; MONO 6 % (1-9); POIKILOCYTOSIS 1+; SEGS 78 % (42-75); TARGET CELLS OCCASIONAL
--- NOTE | 2018-05-19 12:09 | INFECTIOUS DISEASE PROGRESS NO ---
DATE: 05/19/2018 PRESENT ILLNESS: The patient has bilateral pneumonia and also pleural effusions which are being drained by the chest tube. MEDICATIONS: The patient has been on Zosyn now for 12 days, and Zyvox for 2 days. PHYSICAL EXAMINATION: Vital Signs: Temperature is 100 degrees, pulse 63, respirations 14, blood pressure 149/55. General: This is an ill-appearing elderly male. He is intubated and sedated. Head/eyes/ears/nose/throat: Patient has an orotracheal tube in place. There is no drainage from his nose or ears. Neck: No stiffness. Lungs: There were bilateral rhonchi with decreased breath sounds on the left side. Cardiovascular: Heart rate is regular. Abdomen: Soft and nontender. Neurologic: The patient is sedated. He did not respond to verbal stimuli. He does not have a tremor. LABORATORY DATA AND X-RAY: There is no CBC back yet. The blood gases show a pH of 7.53, a PO2 of 72, and a pCO2 of 59. Creatinine is 0.7, GFR is greater than 60. Immunoglobulin G and immunoglobulin A levels are normal. Cryptococcal antigen and Aspergillus antigen were negative. Blood and sputum cultures are negative. CT scan of the chest showed a right upper lobe nodular opacity and decreased left pleural effusion. ASSESSMENT AND PLAN: Patient has pneumonia and pleural effusions. I plan to continue with Zyvox and Zosyn. There may be an element of aspiration pneumonia with the patient's current infection. COMORBIDITIES: The patient is a diabetic and he also unfortunately has lung cancer. cc: MD Km Sheikh MD
--- NOTE | 2018-05-19 16:06 | PROGRESS NOTE ---
DATE: 05/19/2018 SUBJECTIVE: Patient continues sedated on ventilator. He remains in sinus rhythm. OBJECTIVE: Vital Signs: Blood pressure 137/50, heart rate 61, oxygen saturation 97%. Neck: Jugular venous distention cannot be appreciated. Chest: Auscultation of chest reveals clear lung wilkins anteriorly. Cardiac Exam: Reveals a regular rate and rhythm without appreciable murmur or gallop. Extremities: Without edema. LABORATORY DATA: Lab data includes a white blood cell count of 14.24, hematocrit 28.8, hemoglobin 7.4, platelet count 248. Sodium 150, potassium 3.2, chloride 99, carbon dioxide 41. BUN 15 and creatinine 0.7. IMPRESSION: 1. Acute hypercapnic/hypoxemic respiratory failure. 2. Atrial arrhythmias including atrial flutter. Patient continues in sinus rhythm. 3. Status post radiation therapy for lung cancer. 4. Atherosclerotic coronary disease with previous coronary bypass grafting in 2017. 5. Status post cerebrovascular accident May of 2017. 6. Stage II lung cancer (non-small cell) treated with radiation therapy. RECOMMENDATIONS: 1. Continue low-dose metoprolol as tolerated. 2. Continue to monitor cardiac rhythm. 3. Conservative cardiovascular management overall. cc: MD Km Amezquita MD
[2018-05-19] MEDS ORDERED: NS MISC ONE (18:00)
[2018-05-19] MEDS ORDERED: CATHFLO MISC ONE (18:00)
[2018-05-19] MEDS ORDERED: NS 30 ML IV ONE (18:00)
--- NOTE | 2018-05-19 18:39 | GENERAL SURGERY PROGRESS NOTE ---
DATE: 05/19/2018 Mr. Benitez is resting comfortably on the ventilator. His hemodynamics are good. White count today is 14,000 .hemoglobin 7.4, hematocrit 28. CT scan shows obvious improvement. We talked to Dr. Trevizo. He has recommended we try Alteplase in the pleural space. We will plan to use a regimen of 60 mg diluted to 50 mL to dwell in the pleural space for 4 hours. We will try that for 2 to 3 days and see if that will help further evacuate the loculated effusion. I discussed this with his and she agrees. cc: MD Km Bray MD
[2018-05-20] MEDS: HUMULIN R SUBQ SCH ×4 (00:01→18:59)
[2018-05-20] MEDS: DIPRIVAN 1% 1,000 MG/100 ML BOTTLE IV SCH ×2 (02:44→07:03)
[2018-05-20] MEDS: XOPENEX NEB INH SCH ×6 (03:35→23:15)
[2018-05-20] MEDS: ZOSYN 4.5 GM in NS 100 ML IV SCH ×4 (03:58→21:15)
[2018-05-20 04:42] LABS: ALLEN TEST YES; BE 20.1 mmoll (-3.0-3.0); BLOOD TYPE ARTERIAL; HCO3-(ACT) 40.6 mmoll (20.0-26.0); METHB 0.4 % (0.0-1.5); O2(CT) 10.8 mL/dL (15.0-23.0); O2HB 95.9 % (95.0-99.0); PO2(98.6) 85 mmHg (60-100); SAMPLE BLOOD; SAO2 97.3 % (95.0-100.0); SRATE 14 BPM; THB 7.9 g/dL (11.5-17.4); TVOL 500 mL; pH(98.6) 7.55 (7.35-7.45)
[2018-05-20 04:43] LABS: MODALITY VENTILATOR; PCO2(98.6) 51 mmHg (35-45)
[2018-05-20 05:18] LABS: BUN 15 mg/dL (8-22); CALCIUM 7.8 mg/dL (8.8-10.2); CHLORIDE 98 mmol/L (98-107); CHOLESTEROL 105 mg/dL (0-200); COSMO 290; CREATININE 0.6 mg/dL (0.7-1.2); ESTIMATED GFR > 60; GLUCOSE 142 mg/dL (70-104); PHOSPHORUS 2.5 mg/dL (2.7-4.5); POTASSIUM 2.7 mmol/L (3.5-5.1); PREALBUMIN 5.4 mg/dL (20-40); SODIUM 144 mmol/L (136-145); TCO2 49 mmol/L (25-35); TRIGLYCERIDES 129 mg/dL (39-160)
[2018-05-20 05:26] LABS: AGAP 0
--- NOTE | 2018-05-20 06:24 | Diag Imaging Result Doc PS360 ---
CHEST-PORTABLE - 05/20/2018 INDICATION: ventilator COMPARISON: 05/19/2018 FINDINGS: Support lines and tubes are stable. Stable cardiomegaly and pulmonary vascular congestion. Stable extensive bilateral infiltrates/pulmonary edema. Stable small right and moderate left pleural effusion. Stable left chest tube. IMPRESSION: No change from prior. Electronically signed by Tony Mccollum 05/20/2018 6:22 AM
[2018-05-20] MEDS: POTASSIUM CHLORIDE 20 MEQ/SWI 20 MEQ/100 ML IVPB IV SCH ×2 (08:43→10:33)
[2018-05-20] MEDS: SODIUM CHLORIDE 0.9% INJ SCH (08:57)
[2018-05-20] MEDS: LOPRESSOR PO SCH ×2 (08:57→21:17)
[2018-05-20] MEDS: PROTONIX IV SCH (08:57)
[2018-05-20] MEDS: ZYVOX 600 MG/D5W 600 MG/300 ML IVPB IV SCH ×2 (08:57→21:15)
[2018-05-20 10:50] LABS: ALLEN TEST YES; BE 17.8 mmoll (-3.0-3.0); BLOOD TYPE ARTERIAL; HCO3-(ACT) 38.8 mmoll (20.0-26.0); METHB 0.2 % (0.0-1.5); O2(CT) 10.1 mL/dL (15.0-23.0); PO2(98.6) 78 mmHg (60-100); SAMPLE BLOOD; SAO2 96.1 % (95.0-100.0); THB 7.5 g/dL (11.5-17.4); pH(98.6) 7.48 (7.35-7.45)
[2018-05-20 10:53] LABS: MODALITY VENTILATOR; PCO2(98.6) 58 mmHg (35-45)
[2018-05-20 11:03] LABS: BASO# 0.05 X1000 (0.0-0.2); BASO% 0.3 % (0.0-0.8); EOS# 0.43 X1000 (0.0-0.7); EOS% 2.9 % (0.0-10.0); HEMOGLOBIN 7.7 g/dL (14.0-18.0); IMM GRAN# 0.05 X1000 (0.0-0.04); IMM GRAN% 0.3 % (0.0-0.5); LYMPH# 1.71 X1000 (1.2-3.4); LYMPH% 11.6 % (20.5-51.1); MCH 17.6 PG (27-31); MCHC 25.7 g/dL (33-37); MCV 68.5 FL (81-99); MONO% 7.5 % (1.7-9.3); MPV 9.7 FL (7.4-10.4); NEUT# 11.38 X1000 (1.4-6.5); NEUT% 77.4 % (42.2-75.2); PLT 223 X1000 (130-400); RBC 4.38 XMIL (4.7-6.1); WBC 14.72 X1000 (4.8-10.8)
[2018-05-20 11:04] LABS: BANDS 4 % (0-1); EOS 4 % (1-10); LYMPHS 14 % (21-51); MONO 2 % (1-9); SEGS 76 % (42-75)
--- NOTE | 2018-05-20 12:07 | PULMONOLOGY PROGRESS NOTE ---
DATE: 05/20/2018 SUBJECTIVE: The patient is arousable to alert. He will follow commands. He does have a cough effort noted. OBJECTIVE: Vital Signs: The patient has been afebrile for the last 24 hours. BP 136/48, heart rate 64, respiratory rate 16, oxygen saturation 97%. HEENT: Pupils are equal and reactive. Oropharynx is clear. Neck: Supple. Chest: Reveals diminished breath sounds in the lung bases. Chest tube is in the left hemithorax. Cardiac Examination: S1-S2. Abdomen: Soft with positive bowel sounds. Extremities: Reveal trace edema. Laboratories: Sodium 144, potassium 2.7, chloride 98, bicarbonate 49, BUN 15, creatinine 0.6, phosphorus 2.5. White blood count 14.7, hemoglobin 7.7, platelet count 223,000. Arterial blood gas at 4:30 this morning, pH 7.55, pCO2 of 51, PO2 of 85 on mechanical ventilation. Arterial blood gas following spontaneous breathing trial this morning, pH 7.48, pCO2 of 58, PO2 of 78. Chest x-ray reveals no change. Postop chest x-ray has improved on the left following pleural drainage. IMPRESSION: A 78-year-old with: 1. Acute hypoxemic respiratory failure. 2. Acute hypercapnic respiratory failure. 3. Abnormal weight loss. 4. Hemothorax. 5. Status post radiation therapy in the right apex for an early stage lung cancer. 6. Protein calorie malnutrition. DISCUSSION: Overall, the patient's left hemithorax has improved. He has been tolerating nutrition over the last several days. He has tolerated a spontaneous breathing trial this morning. He has received a dose of tPA in the left hemithorax with increased initial output from the tPA. RECOMMENDATIONS: 1. Continue tPA in the left chest as outlined by Dr. Sifuentes. 2. Spontaneous breathing trial this morning. 3. We will hold tube feeds during extubation progress. 4. Recommendations pending hospital course. cc: MD Km Harrisno MD
[2018-05-20] MEDS: NEUTRA-PHOS PO SCH ×3 (12:44→21:17)
--- NOTE | 2018-05-20 14:17 | PROGRESS NOTE ---
DATE: 05/20/2018 CARDIOLOGY FOLLOW-UP NOTE: SUBJECTIVE: Patient has been extubated and is on oxygen mask. He follows commands and seems to respond appropriately. He denies pain. He denies shortness of breath on current supplemental oxygen. OBJECTIVE: Vital signs: Blood pressure 140/54, heart rate 59 with ECG monitor showing sinus rhythm, oxygen saturation 96%. Neck: Jugular venous distention could not be appreciated. Chest: Auscultation of the chest reveals scattered expiratory rhonchi. Cardiac: Exam reveals a regular rate and rhythm without appreciable murmur or gallop. Extremities: There is no evidence of peripheral edema. LABORATORY DATA: Includes a white blood cell count of 14.72, hematocrit 30.0, hemoglobin 7.7, platelet count 223,000. Sodium 144, potassium 2.7, chloride 98, carbon dioxide 49, BUN 15, creatinine 0.6, glucose 142. IMPRESSION: 1. Recent acute hypoxemic/hypercapnic respiratory failure. 2. Transient atrial flutter. Patient continues in sinus rhythm. 3. Status post radiation therapy for stage II lung cancer (non-small cell). 4. Atherosclerotic coronary artery disease with previous coronary artery bypass grafting, 2017. 5. Status post cerebrovascular accident, May 2017. RECOMMENDATIONS: 1. Continue low-dose metoprolol. 2. Continue to monitor cardiac rhythm. 3. Conservative cardiovascular management overall. 4. Given maintenance of sinus rhythm, I will see further on an as-needed basis. cc: MD Km Amezquita MD
--- NOTE | 2018-05-20 15:30 | GENERAL SURGERY PROGRESS NOTE ---
DATE: 05/20/2018 OBJECTIVE: Vital signs: Mr. Benitez is afebrile. He is now extubated and breathing comfortably at a rate of 20, blood pressure 141/55. Output: He has had about 350 mL of output in his chest tube. He has had a total of about 1900 now. There is some fresh blood in his chest tube. DIAGNOSTIC STUDIES: His chest x-ray continues to slowly clear. White count is 14,700, hemoglobin 7.7, hematocrit 30. PLAN: The plan is to repeat his chest x-ray on 05/21/2018. I do not plan to put any Alteplase into this pleural space today because of the fresh blood. We will decide about removal of his chest tube based on the amount of CT drainage. cc: MD Km Bray MD
--- NOTE | 2018-05-20 16:51 | PROGRESS NOTE ---
DATE: 05/20/2018 SUBJECTIVE: Mr. Benitez is doing a little better. Air and gas exchange seems to have improved. His output from the chest tube looks better. They did give him a little bit of tPA through the tube yesterday. OBJECTIVE: Vital signs: He remains afebrile, temperature 98.8 degrees, pulse 64 respirations 20, blood pressure 149/56. HEENT: Pupils are equal and round. Lungs: Clear in all lung wilkins. Cardiovascular: Regular rhythm and rate without murmur or S3. Abdomen: Soft. Extremities: No pedal edema. LABORATORY DATA: From this morning, white count 14,720, hematocrit is 30, platelet count is 223,000. Electrolytes: Sodium 144, potassium 2.7, chloride 98, bicarbonate 49. BUN 15, creatinine 0.6. His blood gas this morning: The pH was 7.48, pCO2 is 58, PO2 of 78, and his O2 saturation is 96% on 45% FiO2 and CPAP, so he was extubated. ASSESSMENT AND PLAN: 1. Recent acute hypoxemic hypercapnic respiratory failure. He was extubated this afternoon and seems to be doing better. 2. Pleural effusions. Turned out to be a bloody pleural effusion. Studies are still pending. Chest tube in the left chest and has had fairly good output. They did give some tPA to thin it out and so we may be able to get the chest tube out. 3. Status post radiation and chemotherapy for stage II lung cancer, non-small cell, on the right side of his lung. Aware. 4. History of atherosclerotic coronary artery disease with previous coronary bypass grafting in 2017. 5. Status post cerebrovascular accident in May 2017. 6. We are treating him for probable bilateral basilar pneumonia, suspect aspiration. 7. Review of his orders. I do not know that I see any change. 8. Review of his medications. Continue present regimen. cc: Km Palencia MD
--- NOTE | 2018-05-20 17:12 | INFECTIOUS DISEASE PROGRESS NO ---
DATE: 05/20/2018 PRESENT ILLNESS: The patient has bilateral pneumonia/pulmonary edema. MEDICATIONS: Patient has been on Zosyn now for 13 days and Zyvox for 3 days. PHYSICAL EXAMINATION: Vital Signs: Temperature is 99 degrees, pulse 64, respirations 22, blood pressure 149/56. General: This is an ill-appearing, elderly male. He has been extubated. Head, eyes, ears, nose, and throat: He does not have any drainage from his nose or ears. Lungs: There were bilateral rhonchi. Cardiovascular: Heart rate is regular. Abdomen: Soft and nontender. Neurologic: The patient is lethargic. He did not respond to verbal stimuli. He does not have a tremor. LAB AND X-RAY: Chest x-ray shows bilateral infiltrates/pulmonary edema. Sputum culture is negative. CBC shows a white count of 14,720, hemoglobin 7.7, and platelet count 223,000. ASSESSMENT AND PLAN: Patient has pneumonia and there may well be an element of aspiration. I plan to continue the current antibiotics of Zosyn and Zyvox. COMORBIDITIES: The patient is a diabetic and he also has lung cancer. cc: MD Km Sheikh MD MTDD
[2018-05-21] MEDS: HUMULIN R SUBQ SCH ×5 (00:15→23:12)
[2018-05-21] MEDS: ZOSYN 4.5 GM in NS 100 ML IV SCH ×4 (03:24→22:45)
[2018-05-21] MEDS: XOPENEX NEB INH SCH ×6 (03:25→23:30)
[2018-05-21 04:57] LABS: ALLEN TEST YES; BE 16.5 mmoll (-3.0-3.0); BLOOD TYPE ARTERIAL; HCO3-(ACT) 37.8 mmoll (20.0-26.0); METHB 0.9 % (0.0-1.5); O2(CT) 9.3 mL/dL (15.0-23.0); O2HB 94.2 % (95.0-99.0); PO2(98.6) 81 mmHg (60-100); SAMPLE BLOOD; SAO2 95.9 % (95.0-100.0); THB 6.9 g/dL (11.5-17.4); pH(98.6) 7.43 (7.35-7.45)
[2018-05-21 04:58] LABS: MODALITY COOL AEROSOL; PCO2(98.6) 64 mmHg (35-45)
--- NOTE | 2018-05-21 07:10 | Diag Imaging Result Doc PS360 ---
EXAM: CHEST-PORTABLE 05/21/2018 HISTORY: ventilator TECHNIQUE: AP portable at 0511 COMMENT: There is a chest tube on the left. There is what appears to be a loculated hydropneumothorax on the left. Some of this may be due to pleural thickening. There is also pleural effusion on the right. There is generalized interstitial and some alveolar opacity bilaterally consistent with pulmonary edema. There is a left-sided PICC line with its tip in the superior vena cava. The endotracheal tube which was present previously has been removed as has the NG tube. IMPRESSION: Pulmonary edema/ARDS. Bilateral pleural effusions versus pleural thickening. Electronically signed by Lauro Bass 05/21/2018 7:08 AM
--- NOTE | 2018-05-21 09:25 | PROGRESS NOTE ---
DATE: 05/21/2018 SUBJECTIVE: Mr. Benitez is extubated. He appears to be breathing comfortably, has O2 face mask. He did have a short run of ventricular tachycardia this morning. He remains in sinus rhythm with a right bundle branch block. OBJECTIVE: Vitals: He is afebrile, temp 99.1 degrees, pulse 69, respirations 20, blood pressure 166/58. Eyes: Pupils are equal and round. Lungs: Clear in all lung wilkins. Cardiovascular: Regular rate without murmur or S3. Abdomen: Soft. Skin: Warm and dry. DATA: Urine output 2500 mL. Blood sugar 154, 128, 116. ASSESSMENT/PLAN: 1. Pulmonary edema. This is suspicious for acute respiratory distress syndrome, bilateral pleural effusions versus pleural thickening. Chest tube on the left is still in place. 2. Recent acute hypoxemic hypercapnic respiratory failure, extubated yesterday. Seems to be doing well. Better air flow exchange. 3. Bloody pleural effusion. Not sure the cause of this. Chest tube still in the left. 4. Status post radiation chemotherapy for stage II lung cancer, non-small cell, on the right. 5. Atherosclerotic coronary artery disease with previous coronary artery bypass grafting in 2017. 6. Status post cerebrovascular accident in May 2017. 7. Probable bilateral basilar pneumonia, suspect aspiration. Continue present antibiotics. Seems to be making improvement. REVIEW OF ORDERS: Continue his Zosyn 4.5 g daily, linezolid 600 mg IV q.12. cc: Km Palencia MD
[2018-05-21] MEDS: LOPRESSOR PO SCH ×2 (09:32→20:52)
[2018-05-21] MEDS: PROTONIX IV SCH (09:32)
[2018-05-21] MEDS: ZYVOX 600 MG/D5W 600 MG/300 ML IVPB IV SCH ×2 (09:32→20:52)
[2018-05-21] MEDS: SODIUM CHLORIDE 0.9% INJ SCH (09:32)
[2018-05-21 09:36] LABS: BASO# 0.02 X1000 (0.0-0.2); BASO% 0.2 % (0.0-0.8); EOS# 0.33 X1000 (0.0-0.7); EOS% 2.7 % (0.0-10.0); HEMATOCRIT 30.1 % (42.0-52.0); HEMOGLOBIN 7.6 g/dL (14.0-18.0); IMM GRAN# 0.03 X1000 (0.0-0.04); IMM GRAN% 0.2 % (0.0-0.5); LYMPH% 12.9 % (20.5-51.1); MCH 17.5 PG (27-31); MCHC 25.2 g/dL (33-37); MCV 69.4 FL (81-99); MONO# 1.12 X1000 (0.11-0.59); MONO% 9.1 % (1.7-9.3); MPV 10.1 FL (7.4-10.4); NEUT# 9.26 X1000 (1.4-6.5); NEUT% 74.9 % (42.2-75.2); PLT 247 X1000 (130-400); RBC 4.34 XMIL (4.7-6.1); RDW 20.2 % (11.5-14.5); WBC 12.36 X1000 (4.8-10.8)
[2018-05-21 09:56] LABS: ANISOCYTOSIS 2+; EOS 2 % (1-10); HYPOCHROM 2+; LYMPHS 4 % (21-51); MICROCYTOSIS 2+; MONO 4 % (1-9); POIKILOCYTOSIS 1+; SEGS 90 % (42-75); TARGET CELLS OCCASIONAL
[2018-05-21 09:57] LABS: LARGE PLATELETS 1+
[2018-05-21 09:59] LABS: AGAP 8; ALB/GLOB RATIO 0.6; ALBUMIN 2.1 g/dL (3.5-5.0); ALKALINE PHOSPHATASE 79 U/L (32-122); BUN 12 mg/dL (8-22); CALCIUM 7.9 mg/dL (8.8-10.2); CHLORIDE 98 mmol/L (98-107); COSMO 284; CREATININE 0.5 mg/dL (0.7-1.2); ESTIMATED GFR > 60; GLUCOSE 117 mg/dL (70-104); GOT 13 U/L (10-34); GPT 5 U/L (10-44); POTASSIUM 2.8 mmol/L (3.5-5.1); SODIUM 142 mmol/L (136-145); TCO2 36 mmol/L (25-35); TOTAL BILIRUBIN 0.43 mg/dL (0.20-1.00); TOTAL PROTEIN 5.7 g/dL (6.3-8.3)
[2018-05-21] MEDS: POTASSIUM CHLORIDE 40 MEQ/SWI 40 MEQ/100 ML IVPB IV SCH ×2 (10:44→18:13)
--- NOTE | 2018-05-21 13:16 | PULMONOLOGY PROGRESS NOTE ---
DATE: 05/21/2018 SUBJECTIVE: The patient is awake, alert, and very conversant. He appears oriented. He has no increased work of breathing. OBJECTIVE: Vital Signs: The patient has been afebrile for the last 24 hours. Blood pressure 130/53, heart rate 90, respiratory rate 17, oxygen saturation 93%. Intake 1778, output 1525. Chest tube output 400 mL. HEENT: Pupils are equal and reactive. Oropharynx appears clear. Neck: Supple. Chest: Reveals better air flow in the left lung. Cardiac exam: S1, S2. Abdomen: Soft with positive bowel sounds. Extremities: Revealed trace edema, left upper extremity greater than right. LABS AND X-RAYS: Chest x-ray continues to have some improvement over the last 3 days in the left lung. Unchanged right lung. Chest tube kinked, but appears to be in position. Sodium 142, potassium 2.8, chloride 98, bicarbonate 36. BUN 12, creatinine 0.5, albumin 2.1. White blood count 12.36, hemoglobin 7.6, platelet count 247,000. IMPRESSION: A 78-year-old with: 1. Acute hypoxemic respiratory failure. 2. Acute hypercapnic respiratory failure. 3. Hemothorax. 4. Protein calorie malnutrition. 5. Status post radiation therapy to an early stage lung cancer without evidence of recurrence. DISCUSSION: Overall, patient's left hemithorax continues to slowly improve. He is doing well off mechanical ventilation. His NG tube was curled in his mouth and has been removed. He has received additional doses of tPA per Dr. Sifuentes. RECOMMENDATION: 1. Continue chest tube management per Dr. Sifuentes. 2. Speech evaluation this morning. Hopefully, his diet can be advanced. 3. Enhance bronchial hygiene with incentive spirometry. 4. Initiate physical therapy. 5. Additional recommendations pending hospital course. cc: MD Km Harrison MD
[2018-05-21] MEDS ORDERED: LASIX IV ONE (14:00)
--- NOTE | 2018-05-21 14:37 | PROGRESS NOTE ---
DATE: 05/21/2018 SUBJECTIVE: Patient continues without chest discomfort or dyspnea. He demonstrated an episode of nonsustained ventricular tachycardia earlier and has converted back into atrial flutter with controlled rate. OBJECTIVE: Vital Signs: Blood pressure 139/59, heart rate 91 with ECG monitor showing atrial flutter. Oxygen saturation 92% on supplemental oxygen per mask. Neck: Veins are distended suggesting elevated central venous pressure with prominent atrial wave. Chest: Auscultation of the chest reveals some diminished breath sounds at the bases bilaterally. Cardiac: Reveals a irregular rate and rhythm without appreciable murmur or gallop. Extremities: Without edema. LABORATORY DATA: Includes a white blood cell count of 12.36, hematocrit 30.1, hemoglobin 7.6, platelet count 247,000. Sodium 142, potassium 2.8, chloride 98, carbon dioxide 36, BUN 12, creatinine 0.5, glucose 117. IMPRESSION: 1. Recent acute hypoxemic/hypercapnic respiratory failure. 2. Transient atrial flutter which has now recurred. 3. Left pleural effusion. Patient is status post chest tube. 4. Status post radiation therapy for stage II lung cancer (non-small cell). 5. Atherosclerotic coronary disease with previous coronary artery bypass grafting in 2017. 6. Status post previous cerebrovascular accident May of 2017. RECOMMENDATIONS: 1. Cautiously add amiodarone 200 mg p.o. t.i.d. while limiting metoprolol use for any bradycardia that might be manifest. 2. Replete potassium as you are doing. 3. Diuresis as you are doing. 4. Add low-dose Lovenox subcutaneously daily. cc: MD Km Amezquita MD
--- NOTE | 2018-05-21 14:46 | GENERAL SURGERY PROGRESS NOTE ---
DATE: 05/21/2018 Mr. Benitez is clinically better. He is awake and alert and communicating now. He is breathing satisfactorily on face mask. Reportedly about 400 mL of fluid out his chest tube, a small air leak was noted. His chest x-ray looks okay to me. In view of the small air leak, I will take him off suction and simply leave him to water seal, repeat his chest x-ray tomorrow. If he does not show any pneumothorax then I think we should consider taking his chest tube out as I think it has served its purpose. Dr. Saavedra will cover the weekend. cc: MD Km Bray MD
[2018-05-21] MEDS: TYLENOL PO PRN (16:04)
[2018-05-21] MEDS: CORDARONE PO SCH (16:04)
--- NOTE | 2018-05-21 19:35 | INFECTIOUS DISEASE PROGRESS NO ---
DATE: 05/21/2018 PRESENT ILLNESS: Mr. Benitez is being treated for bilateral pneumonia/pulmonary edema with ARDS. MEDICATIONS: Today is day 14 of treatment with Zosyn 4.5 g IV every 6 hours and day 4 of Zyvox 600 mg IV every 12 hours. PHYSICAL EXAMINATION: Vital Signs: Temperature is 97.8, pulse rate 98, respiratory rate 25, blood pressure 146/74. O2 saturation is 92% on 40% FiO2 on a cool air soft face mask. General: This is a chronically ill-appearing, elderly gentleman. He is lying in the bed , currently in no acute distress. HEENT: Atraumatic, normocephalic. Oral mucous membranes are pink and dry. Conjunctivae are pale. Neck: Supple. Trachea is midline. Cardiovascular: Heart rate is irregular and tachycardic. Respiratory: Lung sounds are clear in the upper lobes. Diminished in the bases. Abdomen: Soft, round, and nontender. Bowel sounds are active. Neurologic: He is awake and alert, and following commands appropriately. Extremities: Very weak. There is a PICC line in place to his left upper arm. The site is without any edema, erythema or drainage. There is also a left sided chest tube. LABORATORY AND X-RAY: Today, his white count is 12.36, hemoglobin 7.6, platelet count 247,000 on 60% cool air soft face mask. This morning his pH was 7.43, pCO2 of 64, pO2 of 81, HCO-3 of 37.8. Creatinine 0.5. Estimated GFR is greater than 60. Total bilirubin 0.43. AST 13, ALT 5, alkaline phosphatase 79. Chest x-ray today shows pulmonary edema/ARDS. Bilateral pleural effusions versus pleural thickening. ASSESSMENT AND PLAN: Mr. Benitez has pneumonia with pulmonary edema and ARDS. His WBC count has come down somewhat. For now, we will go ahead and continue his Zyvox and Zosyn as ordered. We will also draw a procalcitonin over the weekend. These plans have been discussed with and recommended by Dr. Leija. COMORBIDITIES: For Mr. Benitez include that he is elderly with diabetes mellitus , coronary artery disease and lung cancer. Dictated by MIMA Rico for Bjorn Leija MD This chart was documented by, MIMA Rico and accurately reflects the services performed, treatment plan and medical decisions as attested by the providers signature Bjorn Leija MD. cc: MD Km Sheikh MD [facility]
[2018-05-22] MEDS: XOPENEX NEB INH SCH ×6 (03:27→23:23)
[2018-05-22] MEDS: ZOSYN 4.5 GM in NS 100 ML IV SCH ×4 (04:42→22:37)
[2018-05-22 04:46] LABS: BASO# 0.05 X1000 (0.0-0.2); BASO% 0.4 % (0.0-0.8); EOS# 0.44 X1000 (0.0-0.7); EOS% 3.8 % (0.0-10.0); HEMATOCRIT 30.9 % (42.0-52.0); IMM GRAN# 0.04 X1000 (0.0-0.04); IMM GRAN% 0.3 % (0.0-0.5); LYMPH# 2.08 X1000 (1.2-3.4); LYMPH% 17.8 % (20.5-51.1); MCH 17.9 PG (27-31); MCHC 25.9 g/dL (33-37); MCV 69.1 FL (81-99); MONO# 1.31 X1000 (0.11-0.59); MONO% 11.2 % (1.7-9.3); MPV 10.4 FL (7.4-10.4); NEUT# 7.75 X1000 (1.4-6.5); NEUT% 66.5 % (42.2-75.2); PLT 279 X1000 (130-400); RBC 4.47 XMIL (4.7-6.1); RDW 20.5 % (11.5-14.5); WBC 11.67 X1000 (4.8-10.8)
[2018-05-22 04:58] LABS: ALLEN TEST YES; BE 16.6 mmoll (-3.0-3.0); BLOOD TYPE ARTERIAL; HCO3-(ACT) 37.9 mmoll (20.0-26.0); METHB 0.7 % (0.0-1.5); O2(CT) 11.3 mL/dL (15.0-23.0); O2HB 94.6 % (95.0-99.0); PO2(98.6) 82 mmHg (60-100); SAMPLE BLOOD; SAO2 96.6 % (95.0-100.0); THB 8.4 g/dL (11.5-17.4); pH(98.6) 7.51 (7.35-7.45)
[2018-05-22 04:59] LABS: MODALITY COOL AEROSOL; PCO2(98.6) 52 mmHg (35-45)
[2018-05-22 05:06] LABS: AGAP 7; BUN 10 mg/dL (8-22); CALCIUM 8.3 mg/dL (8.8-10.2); CHLORIDE 96 mmol/L (98-107); CHOLESTEROL 133 mg/dL (0-200); COSMO 277; CREATININE 0.5 mg/dL (0.7-1.2); ESTIMATED GFR > 60; GLUCOSE 109 mg/dL (70-104); PHOSPHORUS 2.1 mg/dL (2.7-4.5); POTASSIUM 3.1 mmol/L (3.5-5.1); PREALBUMIN 6.2 mg/dL (20-40); SODIUM 139 mmol/L (136-145); TCO2 36 mmol/L (25-35); TRIGLYCERIDES 125 mg/dL (39-160)
[2018-05-22] MEDS: HUMULIN R SUBQ SCH ×3 (05:59→17:11)
--- NOTE | 2018-05-22 07:03 | Diag Imaging Result Doc PS360 ---
EXAM: CHEST-PORTABLE HISTORY: ventilator TECHNIQUE: Portable chest single view COMPARISON: 05/21/2018 FINDINGS: There are sternal wires and surgical clips. Stable cardiomegaly. No change in the left-sided chest tube. There is left pleural thickening. There are increased interstitial markings throughout the lungs. Small right pleural effusion. IMPRESSION: Slight interval improvement in the right lung. Electronically signed by Yong Zamudio 05/22/2018 7:01 AM
[2018-05-22] MEDS: ZYVOX 600 MG/D5W 600 MG/300 ML IVPB IV SCH ×2 (08:53→20:22)
[2018-05-22] MEDS: SODIUM CHLORIDE 0.9% INJ SCH (08:54)
[2018-05-22] MEDS: PROTONIX IV SCH (08:54)
[2018-05-22] MEDS: LOVENOX SUBQ SCH (08:55)
[2018-05-22] MEDS: LOPRESSOR PO SCH ×2 (08:55→20:56)
[2018-05-22] MEDS: CORDARONE PO SCH ×2 (08:55→20:22)
[2018-05-22] MEDS ORDERED: POTASSIUM CHLORIDE 40 MEQ/SWI 40 MEQ/100 ML IVPB IV ONE ×3 (08:58→15:00)
--- NOTE | 2018-05-22 09:38 | PROGRESS NOTE ---
DATE: 05/22/2018 Mr. Benitez is awake and alert, feeling much better. A smile on his face. OBJECTIVE: VITAL SIGNS: Temp 97.2 degrees, pulse 73, respirations 18, blood pressure 181/ 61. Blood pressures have fluctuated between 137 and 181 over 58 to 61. NECK: No distention of neck veins. LUNGS: Clear anterolateral. Decreased breath sounds to the left base. A chest tube in the left lung. ABDOMEN: Soft, nondistended. SKIN: Warm and dry and no pedal edema. Urine output is 4.4 liters. LAB: White count 11,670. Hematocrit is 30. Platelet count is 279,000. Chemistries: Sodium 139, potassium 3.1, chloride 96, BUN was 10 and creatinine 0.5. Blood sugar 169, 169 , 109. Chest x-ray: Slight improvement in the right lung. ASSESSMENT AND PLAN: 1. He is being treated for bilateral pneumonia, pulmonary edema with ARDS. He is on Zosyn 4.5 grams IV q.6 and Zyvox 600 mg q.12. He has been extubated and radiographically and clinically, he appears to be moving air much better. 2. Recent acute hypoxemic hypercapnic respiratory failure. I think probable aspiration pneumonia. Has a large pleural effusion, left greater than right. Chest tube placed with bloody drainage from it. Not sure of the etiology of this pleural fluid. 3. Had a transient episode of atrial flutter and he is back in sinus rhythm. He did have one episode of nonsustained V-tach, a run of V-tach. 4. Status post radiation therapy for stage II lung cancer, non small cell on the right. 5. Atherosclerotic coronary artery disease, previous coronary bypass grafting 2017. 6. History of CVA back in 2018. REVIEW OF HIS ORDERS: He still has a Armijo catheter in. His orders, he is on amiodarone 650 mg q.6 p.r.n., Cordarone 200 mg p.o. t.i.d., getting his breathing treatments, Xopenex. Lopressor 25 mg q.12. Protonix 40 mg IV q.24 hours. His Zosyn 4.5 grams q.6 hours. Linezolid 600 mg IV q.12. Encourage p.o. intake and we will work on his strength. cc: Km Palencia MD [facility]
[2018-05-22] MEDS: LASIX IV SCH ×2 (11:28→23:34)
--- NOTE | 2018-05-22 13:27 | PROGRESS NOTE ---
DATE: 05/22/2018 CARDIOLOGY FOLLOW UP NOTE: SUBJECTIVE: The patient continues awake and alert. He denies shortness of breath on supplemental oxygen. There has been no chest pain. OBJECTIVE: Vital Signs: Blood pressure is 164/58. Heart rate is 78 with ECG monitor showing sinus rhythm. There is no significant jugular venous distention. Respiratory: Chest is clear to auscultation. Cardiovascular: Cardiac exam reveals a regular rate and rhythm without appreciable murmur or gallops. There is no significant edema. LABORATORY DATA: Includes a white blood cell count of 11.67, hematocrit 30.9 hemoglobin 8, and platelet count 279. Sodium is 139, potassium 3.1, chloride 96, CO2 36, BUN 10, creatinine 0.5, and glucose 109. IMPRESSION: 1. Recurrent acute hypoxemic/hypercapnic respiratory failure, improving. 2. Transient atrial flutter which has been recurrent. The patient continues in sinus rhythm on amiodarone. 3. Left pleural effusion. The patient is status post chest tube drainage. 4. Status post radiation therapy for Stage II nonsmall cell lung cancer in the left chest. 5. Atherosclerotic coronary disease with previous coronary bypass grafting in 2017. 6. Status post previous cerebrovascular accident in July of 2017. RECOMMENDATIONS: 1. Continue amiodarone at 200 mg p.o. b.i.d. for now. 2. Continue metoprolol cautiously for any breakthrough atrial arrhythmias. cc: MD Km Amezquita MD
--- NOTE | 2018-05-22 14:01 | GENERAL SURGERY PROGRESS NOTE ---
DATE: 05/22/2018 SUBJECTIVE: He has no new complaints. OBJECTIVE: Vital Signs: He is afebrile. Vital signs are stable. Chest tube output 190 mL serosanguineous fluid and what appears to be a small air leak. General: He is awake and alert. No acute distress. Respiratory: Bilateral breath sounds. No increased work of breathing. RADIOGRAPHS: Chest x-ray shows left pleural thickening. ASSESSMENT AND PLAN: A 78-year-old male with left loculated pleural effusion status post chest tube placement. Alteplase has been instilled. He currently appears to have a small air leak, so we will leave the chest tube in for now. cc: MD Km Orellana MD
[2018-05-22] MEDS: TYLENOL PO PRN (15:22)
--- NOTE | 2018-05-22 20:15 | PULMONOLOGY PROGRESS NOTE ---
DATE: 05/22/2018 SUBJECTIVE: Patient is awake, alert and conversant. Reports his breathing has significantly improved. OBJECTIVE: He has been afebrile over the last 24 hours. Blood pressure 155/56, heart rate 75, respiratory rate 27, oxygen saturation 94% on nasal cannula. HEENT: Pupils are equal and reactive. Oropharynx is clear . Neck: Is supple. Chest: Reveals decreased breath sounds both bases. Chest tube remains in the left hemithorax. Extremities: Are without change. LABORATORIES: Chest x-ray reveals stable chest tube in the left chest with stable pleural thickening. There is slight decrease in edema in the right lung. White blood count 11.67, hemoglobin 8.0, platelet count 279,000. Arterial blood gas pH 7.51, pCO2 of 52, PO2 of 82. Sodium 139, potassium 3.1, chloride 96, bicarbonate 36, BUN 10, creatinine 0.5 . IMPRESSION: 1. Acute hypoxemic respiratory failure. 2. Acute hypercapnic respiratory failure. 3. Hemothorax status post placement of chest tube on the left followed by TPA. 4. Protein calorie malnutrition . 5. Status post radiation therapy to an early stage lung cancer in the right upper lobe without evidence of recurrence. 6. Intermittent atrial flutter now on amiodarone. RECOMMENDATIONS: 1. Continue chest tube management per the surgical team. 2. Continue diet as tolerated. 3. Attempt to balance intake and output with followup chest x-ray tomorrow . cc: MD Km Harrison MD
[2018-05-23] MEDS: HUMULIN R SUBQ SCH ×5 (00:12→23:27)
[2018-05-23] MEDS: XOPENEX NEB INH SCH ×6 (03:24→23:36)
[2018-05-23] MEDS: ZOSYN 4.5 GM in NS 100 ML IV SCH ×4 (04:41→22:18)
[2018-05-23] MEDS: SODIUM CHLORIDE 0.9% INJ SCH (08:34)
[2018-05-23] MEDS: LOVENOX SUBQ SCH (08:34)
[2018-05-23] MEDS: PROTONIX IV SCH (08:34)
[2018-05-23] MEDS: CORDARONE PO SCH ×2 (08:35→20:13)
[2018-05-23] MEDS: ZYVOX 600 MG/D5W 600 MG/300 ML IVPB IV SCH ×2 (08:35→20:15)
--- NOTE | 2018-05-23 08:56 | Diag Imaging Result Doc PS360 ---
EXAM: CHEST-PORTABLE - 05/23/2018 HISTORY: abnormal exam TECHNIQUE: Portable chest COMPARISON: 06/19/2018 FINDINGS: Left chest tube and PICC remain in place. There is stable cardiomegaly. There are bilateral infiltrates, small to medium right pleural effusion, and left pleural effusion and/or thickening which appear essentially stable. There is no pneumothorax identified. IMPRESSION: Stable exam compared to prior. Electronically signed by Rolf Venegas 05/23/2018 8:53 AM
[2018-05-23] MEDS: LOPRESSOR PO SCH ×2 (09:08→20:22)
[2018-05-23] MEDS: LASIX IV SCH ×2 (11:17→23:28)
[2018-05-23] MEDS: TYLENOL PO PRN ×2 (11:17→20:13)
--- NOTE | 2018-05-23 11:47 | PULMONOLOGY PROGRESS NOTE ---
DATE: 05/23/2018 SUBJECTIVE: Patient is awake, alert, and conversant. The patient's reports he is a little depressed today. OBJECTIVE: Vital Signs: The patient has been afebrile for the last 24 hours. BP 144/71, heart rate 94, respiratory rate 23, oxygen saturation 93% on nasal cannula. HEENT: Pupils are equal and reactive. Oropharynx is clear. Neck: Supple. Chest: Reveals chest tube in the left chest draining sanguinous fluid. Abdomen: Soft, with good bowel sounds. Extremities: Without edema. Laboratories: Chest x-ray reveals chest tube in position. It appears to slightly change position and is now unkinked. Bilateral infiltrates and effusions otherwise unchanged. Arterial blood gas, pH 7.51, pCO2 of 52, PO2 of 82, on 40% FiO2. White blood count 11.67, hemoglobin 8.0, platelet count 279,000. Sodium 139, potassium 3.1, chloride 96, bicarbonate 36, BUN 10, creatinine 0.5, glucose 109, prealbumin 6.2. IMPRESSION: A 78-year-old with: 1. Acute hypoxemic respiratory failure. 2. Hemothorax, status post chest tube placement followed by tPA. 3. Protein calorie malnutrition. 4. Intermittent atrial flutter, now on amiodarone. 5. Status post radiation therapy for early stage lung cancer in the right upper lobe without evidence of recurrence. 6. Deconditioning. RECOMMENDATIONS: 1. Continue oxygen for hypoxemic respiratory failure. 2. Continue chest tube management per general surgery. 3. Encourage p.o. intake. 4. Encourage physical therapy. 5. Replace potassium. cc: MD Km Harrison MD
[2018-05-23 13:09] LABS: AGAP 7; ALB/GLOB RATIO 0.7; ALBUMIN 2.3 g/dL (3.5-5.0); ALKALINE PHOSPHATASE 79 U/L (32-122); BUN 10 mg/dL (8-22); CALCIUM 7.6 mg/dL (8.8-10.2); CHLORIDE 95 mmol/L (98-107); COSMO 275; CREATININE 0.6 mg/dL (0.7-1.2); ESTIMATED GFR > 60; GLUCOSE 145 mg/dL (70-104); GOT 14 U/L (10-34); GPT 7 U/L (10-44); MAGNESIUM 1.8 mg/dL (1.5-2.7); POTASSIUM 3.4 mmol/L (3.5-5.1); SODIUM 137 mmol/L (136-145); TCO2 35 mmol/L (25-35); TOTAL BILIRUBIN 0.31 mg/dL (0.20-1.00); TOTAL PROTEIN 5.8 g/dL (6.3-8.3)
--- NOTE | 2018-05-23 18:50 | PROGRESS NOTE ---
DATE: 05/23/2018 SUBJECTIVE: Mr. Benitez is awake and alert, and seems to be much stronger, breathing comfortably. OBJECTIVE: Vital Signs: His temperature is 97.6 degrees, pulse 66, respirations 29, blood pressure 166/56. It appears the air leak may have gone away. I do not see any bubbles in the chest tube collection. Lungs: Clear anterolateral. Decreased breath sounds in left base. Cardiovascular: Regular rhythm and rate, without murmur or S3. Abdomen: Soft. Skin: Warm and dry. LAB: White count 11,670, hematocrit is 30, hemoglobin 8, platelet count 279,000. Sodium 137, potassium 3.4, chloride 95, bicarb 35, BUN is 10, creatinine 0.6. Blood sugars 126, 145, and 129. ASSESSMENT AND PLAN: 1. Acute hypoxemic respiratory failure. 2. Hemothorax, status post chest tube placement, followed by tPA. Seems to have drained well. Hopefully, chest tube can come out soon. 3. Protein calorie malnutrition. Encouraged p.o. intake. 4. Intermitted atrial flutter, now on amiodarone, is in sinus rhythm. 5. Status post radiation therapy for early stage lung cancer, right upper lobe, without evidence of recurrence. 6. Weakness and deconditioning. Encourage physical therapy and p.o. intake. 7. Reviewed his orders. I do not see any change at this point. cc: Km Palencia MD
[2018-05-24] MEDS: ZOSYN 4.5 GM in NS 100 ML IV SCH ×3 (03:20→17:06)
[2018-05-24] MEDS: TYLENOL PO PRN ×2 (03:27→10:39)
[2018-05-24] MEDS: XOPENEX NEB INH SCH ×6 (03:46→23:10)
[2018-05-24 05:51] LABS: AGAP 9; BUN 9 mg/dL (8-22); CHLORIDE 94 mmol/L (98-107); COSMO 270; CREATININE 0.6 mg/dL (0.7-1.2); ESTIMATED GFR > 60; GLUCOSE 84 mg/dL (70-104); POTASSIUM 3.4 mmol/L (3.5-5.1); SODIUM 136 mmol/L (136-145); TCO2 33 mmol/L (25-35)
[2018-05-24] MEDS: HUMULIN R SUBQ SCH ×3 (05:53→18:18)
[2018-05-24 06:45] LABS: MAGNESIUM 1.8 mg/dL (1.5-2.7); PHOSPHORUS 2.5 mg/dL (2.7-4.5)
--- NOTE | 2018-05-24 07:08 | Diag Imaging Result Doc PS360 ---
EXAM: CHEST-PORTABLE 05/24/2018 HISTORY: respiratory failure TECHNIQUE: AP portable at 0518 COMMENT: There is a chest tube on the left. There is some residual pleural thickening or loculated effusion on both sides. There is interstitial and alveolar opacity bilaterally similar in appearance to the previous study of 05/23/2018. IMPRESSION: Pulmonary edema plus minus pneumonia. Pleural thickening and/or pleural effusions. Electronically signed by Lauro Bass 05/24/2018 7:06 AM
[2018-05-24] MEDS: CORDARONE PO SCH ×2 (08:31→20:51)
[2018-05-24] MEDS: LOPRESSOR PO SCH ×2 (08:31→20:51)
[2018-05-24] MEDS: ZYVOX 600 MG/D5W 600 MG/300 ML IVPB IV SCH (08:31)
[2018-05-24] MEDS: SODIUM CHLORIDE 0.9% INJ SCH (08:32)
[2018-05-24] MEDS: PROTONIX IV SCH (08:32)
[2018-05-24] MEDS: LOVENOX SUBQ SCH (08:32)
[2018-05-24 08:49] LABS: BASO# 0.03 X1000 (0.0-0.2); BASO% 0.2 % (0.0-0.8); EOS# 0.36 X1000 (0.0-0.7); HEMATOCRIT 31.2 % (42.0-52.0); HEMOGLOBIN 8.3 g/dL (14.0-18.0); IMM GRAN# 0.04 X1000 (0.0-0.04); IMM GRAN% 0.3 % (0.0-0.5); LYMPH# 1.76 X1000 (1.2-3.4); LYMPH% 14.5 % (20.5-51.1); MCH 18.1 PG (27-31); MCHC 26.6 g/dL (33-37); MCV 68.1 FL (81-99); MONO% 9.9 % (1.7-9.3); MPV 9.4 FL (7.4-10.4); NEUT# 8.73 X1000 (1.4-6.5); NEUT% 72.1 % (42.2-75.2); PLT 272 X1000 (130-400); RBC 4.58 XMIL (4.7-6.1); RDW 21.1 % (11.5-14.5); WBC 12.12 X1000 (4.8-10.8)
[2018-05-24] MEDS: LASIX IV SCH (12:03)
[2018-05-24] MEDS ORDERED: STERILE WATER INJ. INJ ONE (15:28)
[2018-05-24] MEDS ORDERED: CATHFLO IV ONE (15:28)
--- NOTE | 2018-05-24 17:08 | PROGRESS NOTE ---
DATE: 05/24/2018 Mr. Benitez is much more awake and alert, breathing comfortably. Chest tube in place. No fever. He is able to swallow and eat a little bit. His bowels are moving. Temperature 97.2 degrees, pulse 57, respirations 12, blood pressure 129/65 . Pupils are equal, round. Lungs: Are clear in all lung wilkins. Cardiovascular: Regular rhythm, rate without murmur or S3. Abdomen: Is soft. Skin: Is warm and dry. Urine output 4800 mL. Blood sugars 129, 84 204. Chest x-ray pulmonary edema minus pneumonia, pleural thickening and pleural effusion overall improved. ASSESSMENT AND PLAN: 1. Acute hypoxemic respiratory failure. 2. Hemothorax. Chest tube in the left chest, placement of total parenteral nutrition. 3. Protein calorie malnutrition, encourage p.o. intake. 4. Intermittent atrial flutter now on amiodarone. He has remained in sinus rhythm. 5. Status post radiation therapy for early lung cancer in the right upper lobe without evidence of recurrence. 6. Deconditioning and weakness so we will encourage physical therapy see if we can set him up in a chair. LAB: Looks good. His sodium is 136, potassium 3.4, chloride 94, BUN 9, creatinine 0.6, white count 12,120, hematocrit is 31 and platelet count 272,000. cc: Km Palencia MD [facility]
--- NOTE | 2018-05-24 17:29 | GENERAL SURGERY PROGRESS NOTE ---
DATE: 05/24/2018 SUBJECTIVE: Mr. Benitez is awake and alert. He is eating. OBJECTIVE: He is afebrile. Heart rate 74, blood pressure 129/65, respiratory rate is 18. ASSESSMENT AND PLAN: There was no air leak in his chest tube. We will therefore remove his chest tube today. cc: MD Km Bray MD
--- NOTE | 2018-05-24 20:11 | PROGRESS NOTE ---
DATE: 05/24/2018 SUBJECTIVE: Patient has chest tube out since this morning. He continues without shortness of breath or chest discomfort. He remains in sinus rhythm. OBJECTIVE: Vital Signs: Blood pressure 129/65, heart rate 74. Oxygen saturation 95% on nasal cannula oxygen. Neck: There is no significant jugular venous distention. Chest: Clear to auscultation bilaterally. Cardiac: Reveals a regular rate and rhythm, without appreciable murmur or gallop. There is no evidence of peripheral edema. LABORATORY DATA: Includes a white blood cell count 12.12, hematocrit 31.2, hemoglobin 8.3, platelet count 272,000. Sodium 136, potassium 3.4, chloride 94, carbon dioxide 33, BUN 9, creatinine 0.6, glucose 84. IMPRESSION: 1. Recent acute hypoxemic./hypercapnic respiratory failure, improved. 2. Transient atrial flutter, which has been recurrent. Patient continues in sinus rhythm on amiodarone. 3. Left pleural effusion. Patient is status post chest tube drainage. 4. Status post radiation therapy for stage II non-small cell lung cancer in the left chest. 5. Atherosclerotic coronary disease with previous coronary bypass grafting in 2017. 6. Previous cerebrovascular accident in July 2017. RECOMMENDATIONS: 1. Continue low-dose amiodarone. 2. Continue metoprolol cautiously for any break through atrial arrhythmias, as patient has had some tendency for bradycardia. 3. Repeat limited echocardiography to reassess left ventricular function. cc: MD Km Amezquita MD
[2018-05-25] MEDS: HUMULIN R SUBQ SCH ×4 (00:44→18:19)
[2018-05-25] MEDS: LASIX IV SCH ×2 (00:46→11:25)
[2018-05-25] MEDS: XOPENEX NEB INH SCH ×6 (02:56→23:35)
--- NOTE | 2018-05-25 04:30 | GENERAL SURGERY PROGRESS NOTE ---
DATE: 05/24/2018 SUBJECTIVE: The patient has no new complaints. He remains in the ICU. OBJECTIVE: He is afebrile. Vital signs are stable. The left chest tube has put out 90 mL. I do not see a discernible air leak today. ASSESSMENT AND PLAN: A 78-year-old male with left loculated effusion, status post chest tube placement. It appears that the air leak is sealing or has sealed. We will re-evaluate tomorrow and assess for readiness for the tube to be removed. cc: MD Km Orellana MD
[2018-05-25 05:59] LABS: AGAP 7; BUN 10 mg/dL (8-22); CALCIUM 8.2 mg/dL (8.8-10.2); CHLORIDE 95 mmol/L (98-107); COSMO 277; CREATININE 0.5 mg/dL (0.7-1.2); ESTIMATED GFR > 60; GLUCOSE 112 mg/dL (70-104); POTASSIUM 3.2 mmol/L (3.5-5.1); SODIUM 139 mmol/L (136-145); TCO2 37 mmol/L (25-35)
--- NOTE | 2018-05-25 06:06 | INFECTIOUS DISEASE PROGRESS NO ---
DATE: 05/24/2018 PRESENT ILLNESS: The patient has been receiving treatment for possible pneumonia versus pulmonary edema with ARDS. MEDICATIONS: This is the 17th day of treatment with Zosyn, and the 7th day of treatment with Zyvox. PHYSICAL EXAMINATION: Vital Signs: Temperature is 96.8 degrees, pulse 60, respirations 19, blood pressure 173/65. General: This is a chronically ill-appearing elderly male. He is in no acute distress. Head, Eyes, Ears, Nose, and Throat: He can hear my spoken words and see near objects. He does not have any white patches on his tongue. Neck: No meningismus. Lungs: Had some scattered rhonchi bilaterally. Cardiovascular: Heart rate is regular. Abdomen: Soft and nontender. Neurologic: Patient is alert. He can move his extremities. He seems to be a little bit confused, however. DATA: Chest x-ray shows bilateral opacities. Blood and sputum cultures are negative. Procalcitonin is less than 0.1. Creatinine is 0.6. GFR is greater than 60. CBC shows a white count of 12,120, hemoglobin 8.3, and platelet count 272,000. ASSESSMENT AND PLAN: I think the patient does not have pneumonia at this time. He may well have acute respiratory distress syndrome. My plan now is to discontinue Zyvox and Zosyn. I am signing off the case, but I am available to see the patient as needed. COMORBIDITIES: The patient is elderly. He has diabetes mellitus, coronary artery disease, and lung cancer. cc: MD Km Sheikh MD
--- NOTE | 2018-05-25 07:38 | Diag Imaging Result Doc PS360 ---
EXAM: CHEST-PORTABLE INDICATION: respiratory failure TECHNIQUE: One view COMPARISON: 05/24/2018 FINDINGS: The left central line is in stable position. The left chest tube has been removed. Loculated pleural fluid on the left essentially stable. The smaller pleural fluid collection on the right is also stable. Interstitial and airspace infiltrates throughout both lungs are unchanged. Cardiac silhouette is stable. There is no evidence of pneumothorax. IMPRESSION: Interval removal of the left chest tube. Essentially stable chest, otherwise. Electronically signed by William Mondragon 05/25/2018 7:36 AM
[2018-05-25] MEDS: PROTONIX IV SCH (08:20)
[2018-05-25] MEDS: SODIUM CHLORIDE 0.9% INJ SCH (08:20)
[2018-05-25] MEDS: LOVENOX SUBQ SCH (08:20)
[2018-05-25] MEDS: CORDARONE PO SCH ×2 (08:20→20:07)
[2018-05-25] MEDS: LOPRESSOR PO SCH ×2 (08:20→20:08)
[2018-05-25] MEDS ORDERED: POTASSIUM CHLORIDE 40 MEQ/SWI 40 MEQ/100 ML IVPB IV ONE (08:26)
--- NOTE | 2018-05-25 08:33 | PULMONOLOGY PROGRESS NOTE ---
DATE: 05/25/2018 SUBJECTIVE: The patient is laying in bed. He is arousable. He ate some breakfast by his report. OBJECTIVE: Vital Signs: The patient has been mildly hypertensive over the last 24 hours, but has remained afebrile. HEENT: Pupils are equal and reactive. Oropharynx is clear. Neck: Supple Chest: Reveals diminished breath sounds in both lung bases. Cardiac: S1, S2, regular rhythm. Abdomen: Soft. Extremities: Reveal no edema. LABORATORIES: Chest x-ray is stable. Sodium 136, potassium 3.4, chloride 94, bicarbonate 33, BUN 9, creatinine 0.6. White blood count 12.12, hemoglobin 8.3, platelet count 272,000. IMPRESSION: 78-year-old with: 1. Acute hypoxemic respiratory failure. 2. Hemothorax status post chest tube placement, followed by tPA. 3. Protein calorie malnutrition. 4. Intermittent atrial flutter. 5. Deconditioning. 6. Status post radiation therapy for early stage lung cancer without evidence of recurrence. RECOMMENDATION: 1. The patient needs more aggressive physical therapy and motivation. I will ask the nurse and Physical Therapy to get patient out of bed today. 2. Chest tube removal today per General Surgery. 3. Encourage p.o. intake. cc: MD Km Harrison MD
--- NOTE | 2018-05-25 09:12 | PROGRESS NOTE ---
DATE: 05/25/2018 SUBJECTIVE: He is feeling better. He ate a good portion of his breakfast. He is awake and alert and breathing comfortably. OBJECTIVE: Vitals: Temperature 97.8 degrees, pulse 60, respirations 26, blood pressure 174/62. Eyes: Pupils are equal and round. Lungs: Clear in all lung wilkins anterolateral. Diminished breath sounds in the left base. Abdomen: Soft. Skin: Warm and dry. LABORATORY AND IMAGING: Blood sugar 84, 86, 125. Chest x-ray: Interval removal of left chest tube. Essentially stable chest. Small pleural fluid collection on the right also stable. Left pleural is essentially stable. LABORATORY FROM THIS MORNING: White count 12,120, hematocrit is 31, platelet count is 272,000. Sodium 139, potassium 3.2, chloride 95, BUN 10, creatinine 0.5, blood sugars 86, 125, 112. ASSESSMENT AND PLAN: 1. Acute hypoxemic respiratory failure. He had a left pleural effusion, turned out to be a hemothorax. 2. Hemothorax. Chest tube was in the left chest, followed by tPA with good drainage. Chest tube removed. Respiratory status much better. 3. Protein calorie malnutrition. 4. Intermittent atrial flutter. 5. Deconditioning. We will need to work with him with physical therapy. 6. Status post radiation therapy for stage II lung cancer on the right. So, continue physical therapy. We may need to look towards going to rehab. So, we will give him some potassium 40 mEq IV. We will ask Social Service to start looking and see if we have potential for rehab. cc: Km Palencia MD
--- NOTE | 2018-05-25 10:20 | ECHO REPORT ---
ORDER DATE: 05/24/2018 ECHOCARDIOGRAPHIC MEASUREMENTS: Interventricular septum 0.9, left ventricular diastolic diameter 6.0, posterior wall 0.9, systolic diameter 4.8. FINDINGS: 1. The aortic valve leaflets are trileaflet. This is a limited echocardiogram. 2. Mitral valve was normal. Pulmonic valve was normal. Normal left ventricular cavity size. Estimated ejection fraction of 45 to 50 percent. There is anteroseptal and apical hypokinesis. There is left atrial enlargement. 3. There is no pericardial effusion or obvious intracardiac mass or thrombus seen. cc: MD Ar Conroy MD Allen J. Schmidt, MD
--- NOTE | 2018-05-25 12:59 | GENERAL SURGERY PROGRESS NOTE ---
DATE: 05/25/2018 OBJECTIVE: Vital Signs: He is afebrile, heart rate 65, blood pressure 180/67. Lungs: Bilateral breath sounds are present. IMAGING AND LABORATORY DATA: White count yesterday was 12,000. His chest x-ray looks just about the same. His chest tube is now out. He continues to improve clinically. No new recommendations currently. cc: MD Km Bray MD
[2018-05-25] MEDS ORDERED: KLOR-CON PO ONE (17:00)
--- NOTE | 2018-05-25 22:28 | PULMONOLOGY CONSULTATION ---
DATE: 05/25/2018 SUBJECTIVE: The patient is awake, alert and conversant. He is tolerating p.o. intake. OBJECTIVE: The patient has been afebrile for the last 24 hours. Blood pressure 155/58, heart rate 63, respiratory rate 17, O2 saturation 100% on 5 L per nasal cannula.HEENT: Pupils are equal and reactive. Oropharynx is clear. Neck: Is supple. Chest: Reveals crackles in both lung bases. Cardiac: S1-S2. Abdomen: Soft. Extremities: Without edema. LABORATORIES: Sodium 139, potassium 3.2, chloride 95, bicarbonate 37, BUN 10, creatinine 0.5. Chest x-ray reveals is unchanged. IMPRESSION: A 78-year-old with 1. Acute hypoxemic respiratory failure. 2. Hemothorax. 3. Protein calorie malnutrition . 4. Intermittent atrial flutter. 5. Severe deconditioning. 6. Remote history of radiation therapy to an early stage lung cancer without evidence of recurrence . RECOMMENDATION: 1. Strongly encourage patient to participate with physical therapy. 2. Encourage p.o. intake. 3. Replete potassium. 4. Recommend transferring patient to the floor. He does not currently meet criteria for an intensive care setting . cc: MD Km Harrison MD
[2018-05-26] MEDS: HUMULIN R SUBQ SCH ×4 (00:16→17:34)
[2018-05-26] MEDS: LASIX IV SCH (00:17)
[2018-05-26] MEDS: XOPENEX NEB INH SCH ×6 (03:00→23:25)
[2018-05-26 06:33] LABS: AGAP 9; BUN 10 mg/dL (8-22); CALCIUM 8.4 mg/dL (8.8-10.2); CHLORIDE 93 mmol/L (98-107); COSMO 276; CREATININE 0.6 mg/dL (0.7-1.2); ESTIMATED GFR > 60; GLUCOSE 116 mg/dL (70-104); POTASSIUM 3.1 mmol/L (3.5-5.1); SODIUM 138 mmol/L (136-145); TCO2 36 mmol/L (25-35)
--- NOTE | 2018-05-26 07:36 | Diag Imaging Result Doc PS360 ---
EXAM: CHEST-PORTABLE HISTORY: respiratory failure TECHNIQUE: Portable chest single view COMPARISON: 05/25/2018 FINDINGS: Poor inspiratory effort. The heart remains enlarged. The bilateral infiltrates. There are [id number] sized pleural effusions. No change in the left-sided PICC line. Sternal wires are present. IMPRESSION: No interval improvement. Electronically signed by Yong Zamudio 05/26/2018 7:34 AM
[2018-05-26] MEDS: SODIUM CHLORIDE 0.9% INJ SCH (08:16)
[2018-05-26] MEDS: CORDARONE PO SCH ×2 (08:16→22:32)
[2018-05-26] MEDS: PROTONIX IV SCH (08:16)
[2018-05-26] MEDS: LOVENOX SUBQ SCH (08:16)
[2018-05-26] MEDS: LOPRESSOR PO SCH ×2 (08:16→22:32)
[2018-05-26] MEDS: KLOR-CON PO SCH (08:16)
--- NOTE | 2018-05-26 08:20 | PROGRESS NOTE ---
DATE: 05/26/2018 SUBJECTIVE: Mr. Benitez is awake and alert. Feels good. He has been eating pretty well. Breathing comfortably. The chest tube is out. OBJECTIVE: Vitals: Remains afebrile. Temperature 97.7 degrees, pulse 66, respirations 25, blood pressure 184/68. Eyes: Pupils are equal and round. Lungs: Clear in all lung wilkins. Cardiovascular: Regular rhythm and rate without murmur or S3. Abdomen: Soft. Skin: Warm and dry. URINE OUTPUT: 5 L. LABORATORY: Chemistries from this morning, sodium 138, potassium 3.1, chloride 93, BUN 10, creatinine 0.6. Blood sugars 146, 189, 123, 116. IMAGING: Chest x-ray with no interval improvement from the . We will repeat another one today. ASSESSMENT AND PLAN: 1. Acute hypoxemic respiratory failure. 2. Hemothorax. Chest tube on left side is out with draining quite a bit of fluid. 3. Protein calorie malnutrition, continue to encourage p.o. intake. 4. Intermittent atrial flutter. He is predominantly sinus rhythm at this time. 5. Severe deconditioning. Continue physical therapy. 6. History of radiation therapy to the right lung, with stage II lung cancer in the past. No evidence of recurrence at this point. So we will move him to the floor, continue physical therapy. Plan is to maybe get him to rehab when able. Review of his present medication, he is on amiodarone 200 mg b.i.d., Lasix 40 mg q.12, Lopressor 25 mg q.12h, Protonix 40 mg IV daily, Klor-Con 40 mEq daily, and we will move him to the floor. We will continue to follow his x- rays. I will get another chest x-ray today. cc: Km Palencia MD MTDD
[2018-05-26] MEDS ORDERED: LASIX IV ONE ×2 (11:01→12:00)
[2018-05-26] MEDS: TYLENOL PO PRN ×2 (11:31→23:44)
[2018-05-26] MEDS ORDERED: NS IV ONE (12:00)
--- NOTE | 2018-05-26 23:02 | PULMONOLOGY PROGRESS NOTE ---
DATE: 05/26/2018 SUBJECTIVE: The patient is awake, alert, and conversant. He is tolerating p.o. intake. He has a marginal cough effort. He is without specific complaints. OBJECTIVE: Vital Signs: Blood pressure 134/79, heart rate 69, respiration rate 80, oxygen saturation 98% on 50% face mask. HEENT: Pupils are equal and reactive. Oropharynx is clear. Neck: Supple. Chest: Reveals diminished breath sounds bilaterally. Cardiac: S1, S2. Abdomen: Soft with good bowel sounds. Extremities: Reveal trace edema. LABORATORIES: Chest x-ray reveals bilateral infiltrates and effusion which are unchanged. Sodium 138, potassium 3.1, chloride 93, bicarbonate 36, BUN 10, creatinine 0.6. IMPRESSION: A 78-year-old with 1. Acute hypoxemic respiratory failure. 2. Protein calorie malnutrition. 3. Hemothorax. 4. Intermittent atrial fibrillation/flutter. 5. Severe deconditioning. 6. Remote history of early stage lung cancer status post treatment without recurrence. RECOMMENDATION: 1. Agree with transferring patient to the floor. 2. Continue to balance intake and output. 3. Encourage physical therapy. 4. Encourage p.o. intake. 5. Wean oxygen as tolerated. cc: MD Km Harrison MD
[2018-05-27] MEDS: HUMULIN R SUBQ SCH ×4 (01:11→19:03)
[2018-05-27] MEDS: LASIX IV SCH ×2 (01:12→11:49)
[2018-05-27] MEDS: XOPENEX NEB INH SCH ×6 (03:25→23:39)
[2018-05-27 07:32] LABS: AGAP 9; BUN 9 mg/dL (8-22); CALCIUM 8.3 mg/dL (8.8-10.2); CHLORIDE 93 mmol/L (98-107); COSMO 274; CREATININE 0.6 mg/dL (0.7-1.2); ESTIMATED GFR > 60; GLUCOSE 121 mg/dL (70-104); POTASSIUM 3.3 mmol/L (3.5-5.1); SODIUM 137 mmol/L (136-145); TCO2 35 mmol/L (25-35)
--- NOTE | 2018-05-27 07:53 | Diag Imaging Result Doc PS360 ---
EXAM: CHEST-PORTABLE 05/27/2018 HISTORY: respiratory failure TECHNIQUE: AP portable at 0559 COMMENT: There are bilateral pleural effusions. There is alveolar pulmonary edema. The left base is not included on the exam. Overall there has been no appreciable change since 05/26/2018. IMPRESSION: Pulmonary edema and pleural effusions. Cardiomegaly. Electronically signed by Lauro Bass 05/27/2018 7:51 AM
[2018-05-27] MEDS: NS NEB INH SCH (08:15)
[2018-05-27] MEDS: SODIUM CHLORIDE 0.9% INJ SCH (08:59)
[2018-05-27] MEDS: PROTONIX IV SCH (08:59)
[2018-05-27] MEDS: LOVENOX SUBQ SCH (09:00)
[2018-05-27] MEDS: CORDARONE PO SCH ×2 (09:00→23:25)
[2018-05-27] MEDS: LOPRESSOR PO SCH ×2 (09:00→23:25)
[2018-05-27] MEDS: KLOR-CON PO SCH (09:00)
--- NOTE | 2018-05-27 13:22 | PROGRESS NOTE ---
DATE: 05/27/2018 SUBJECTIVE: Mr. Benitez is doing much better. He is asking for some [place] stew. He is breathing comfortably. He has moved down to the floor. He remains afebrile. OBJECTIVE: Vital signs: Temperature 98.5 degrees, pulse 60, respirations 18, blood pressure 144/49. Eyes: Pupils are equal and round. Lungs: Clear in all lung wilkins. Cardiovascular: Regular rhythm and rate without murmur or S3. DIAGNOSTIC STUDIES: Blood sugars 136, 124, 165. Chest x-ray from this morning: Pulmonary edema, pleural effusions. ASSESSMENT AND PLAN: 1. Acute hypoxemic respiratory failure, underlying pleural effusions be hemothorax. He had a chest tube in the left side. It has been removed. Doing much better. 2. Protein-calorie malnutrition, doing better. His p.o. intake is improved. 3. History of intermittent atrial fibrillation and atrial flutter. Rate is controlled. He is on amiodarone. 4. Severe deconditioning. That is improving with physical therapy. 5. Remote history of stage II lung cancer in the right lung. No sign of recurrence. I am pleased with improvement. 6. Review of his orders. I do not see any change. He is on amiodarone 200 mg b.i.d., Lovenox 40 mg subcutaneous daily, Lasix 40 mg IV q.12 h., metoprolol 25 mg q.12 h., Protonix 40 mg IV q.24 h., and potassium chloride 40 mEq every day. We will change his Protonix to p.o. cc: Km Palencia MD [facility]
--- NOTE | 2018-05-27 20:06 | PULMONOLOGY PROGRESS NOTE ---
DATE: 05/27/2018 SUBJECTIVE: The patient is arousable to alert. He reports he is feeling better. He denies shortness of breath. He reports he stood by the bedside with Physical Therapy today. OBJECTIVE: Vital Signs: Blood pressure 134/40, heart rate 63, respiratory rate 18, oxygen saturation 97%. HEENT: Pupils are equal and reactive. Oropharynx is clear. Neck: Supple. Chest: Reveals bilateral crackles. Cardiac: S1, S2. Abdomen: Soft without hepatosplenomegaly. Extremities: Reveal decreased edema. DIAGNOSTIC STUDIES: Chest x-ray reveals bilateral edema and bilateral effusions, unchanged from yesterday. Sodium 137, potassium 3.3, chloride 93, bicarbonate 35, BUN 9, creatinine 0.6. IMPRESSION: A 77-year-old with: 1. Acute hypoxemic respiratory failure. 2. Protein-calorie malnutrition. 3. Hemothorax. 4. Intermittent atrial fibrillation. 5. Severe deconditioning. 6. Remote early stage lung cancer without evidence of recurrence. RECOMMENDATION: 1. Continue to balance intake and output as tolerated. He appears to be diuresing without elevation in BUN or creatinine. 2. Encourage p.o. intake. 3. Encourage physical therapy. 4. Wean oxygen as tolerated. cc: MD Km Harrison MD
[2018-05-27] MEDS: TYLENOL PO PRN (23:27)
[2018-05-28] MEDS: HUMULIN R SUBQ SCH ×5 (00:36→23:55)
[2018-05-28] MEDS: LASIX IV SCH ×2 (00:36→12:31)
[2018-05-28] MEDS: XOPENEX NEB INH SCH ×6 (03:55→23:05)
--- NOTE | 2018-05-28 06:44 | Diag Imaging Result Doc PS360 ---
CHEST-PORTABLE - 05/28/2018 INDICATION: respiratory failure COMPARISON: 05/27/2018 FINDINGS: Stable left PICC line in good position. Stable cardiomegaly and pulmonary vascular congestion. Stable moderate diffuse interstitial pulmonary edema. Stable small right and moderately large left pleural effusion. IMPRESSION: No change from prior exams. Electronically signed by Tony Mccollum 05/28/2018 6:42 AM
[2018-05-28 07:20] LABS: AGAP 7; BUN 11 mg/dL (8-22); CALCIUM 8.4 mg/dL (8.8-10.2); CHLORIDE 95 mmol/L (98-107); COSMO 277; CREATININE 0.8 mg/dL (0.7-1.2); ESTIMATED GFR > 60; GLUCOSE 138 mg/dL (70-104); POTASSIUM 3.6 mmol/L (3.5-5.1); SODIUM 138 mmol/L (136-145); TCO2 36 mmol/L (25-35)
[2018-05-28] MEDS: TYLENOL PO PRN ×3 (08:52→21:48)
[2018-05-28] MEDS: KLOR-CON PO SCH (08:53)
[2018-05-28] MEDS: LOVENOX SUBQ SCH (08:53)
[2018-05-28] MEDS: CORDARONE PO SCH ×2 (08:54→20:10)
[2018-05-28] MEDS: NEXIUM PO SCH (08:54)
[2018-05-28] MEDS: LOPRESSOR PO SCH ×2 (09:11→20:10)
--- NOTE | 2018-05-28 13:42 | PROGRESS NOTE ---
DATE: 05/28/2018 SUBJECTIVE: Mr. Benitez is doing much better and he is in good spirits. Breathing comfortably. Remains afebrile. He is getting stronger. The p.o. intake is good. OBJECTIVE: Vital Signs: Temperature 97.6 degrees, pulse 68, respirations 18, blood pressure 146/45. Eyes: Pupils are equal and round. Lungs: Clear in all lung wilkins. Cardiovascular: Regular rhythm and rate without murmur or S3. Abdomen: Soft. Skin: Warm and dry. : Urine output was 2500 mL. Blood sugar 173, 167 and 143. X-RAYS: Chest x-ray from this morning: No change. Stable. Left PICC line in good position. There is diffuse interstitial edema. Stable right and moderately large left pleural effusion still appreciated. ASSESSMENT AND PLAN: 1. Acute hypoxemic respiratory failure. Presented with bilateral pleural effusions, left much greater than right. Had a left chest tube in for hemothorax. Drained that out, doing well, and he showed steady improvement. 2. Protein calorie malnutrition. 3. Hemothorax as above. 4. Intermittent atrial fibrillation, rate is controlled. He is back in sinus rhythm. 5. Severe deconditioning. 6. History of stage II lung cancer on the right. No sign of recurrence. He seems to be diuresing without elevation of BUN and creatinine. Encourage his oral intake and will wean his oxygen as we can. Review his orders: I do not see any change at this point. cc: Km Palencia MD
--- NOTE | 2018-05-28 22:17 | PROGRESS NOTE ---
DATE: 05/28/2018 SUBJECTIVE: Patient continues without shortness of breath or chest discomfort. He relates feeling stronger. OBJECTIVE: Vital Signs: Blood pressure 164/53, heart rate 68, ECG monitor showing sinus rhythm. Oxygen saturation 100% on nasal cannula oxygen. Neck: There is no significant jugular venous distention. Chest: Clear to auscultation. Cardiac: Reveals a regular rate and rhythm without appreciable murmur, rub, or gallop. Extremities: Without edema. LABORATORY DATA: Includes sodium 138, potassium 3.6, chloride 95, carbon dioxide 36, BUN 11 creatinine 0.8. Glucose 138. IMPRESSION: 1. Recent acute hypoxemic/hypercapnic respiratory failure, improved. 2. Transient atrial flutter which has been recurrent. Patient continues in sinus rhythm on amiodarone. 3. Left pleural effusion. Patient is status post chest tube drainage. 4. Status post radiation therapy for stage II non-small cell lung cancer in the left chest. 5. Atherosclerotic coronary disease with coronary bypass grafting 2016. 6. Previous cerebrovascular accident, July 2017. RECOMMENDATIONS: 1. Taper amiodarone to 200 mg daily. For now continue amiodarone, but ultimately this may be discontinued once he is past the acute phase of his respiratory illness. 2. Continue metoprolol cautiously for any breakthrough atrial tachyarrhythmias. cc: MD Km Amezquita MD
[2018-05-29] MEDS: LASIX IV SCH ×2 (00:12→13:40)
[2018-05-29] MEDS: XOPENEX NEB INH SCH ×6 (03:20→23:08)
[2018-05-29] MEDS: HUMULIN R SUBQ SCH ×3 (06:23→18:17)
[2018-05-29 07:12] LABS: AGAP 6; BUN 10 mg/dL (8-22); CALCIUM 8.1 mg/dL (8.8-10.2); CHLORIDE 95 mmol/L (98-107); COSMO 273; CREATININE 0.6 mg/dL (0.7-1.2); ESTIMATED GFR > 60; GLUCOSE 131 mg/dL (70-104); POTASSIUM 4.3 mmol/L (3.5-5.1); SODIUM 136 mmol/L (136-145); TCO2 35 mmol/L (25-35)
--- NOTE | 2018-05-29 08:26 | Diag Imaging Result Doc PS360 ---
EXAM: CHEST-PORTABLE INDICATION: respiratory failure TECHNIQUE: One view COMPARISON: 05/28/2018 FINDINGS: The left PICC line is in stable position. Pulmonary edema and bilateral pleural effusions, largest on the left, are stable. No new consolidation is appreciated. Cardiac silhouette is stable. IMPRESSION: Stable chest. Electronically signed by William Mondragon 05/29/2018 8:23 AM
--- NOTE | 2018-05-29 11:07 | PROGRESS NOTE ---
DATE: 05/29/2018 SUBJECTIVE: Mr. Benitez is resting comfortably, breathing comfortably, he feels much better, eating well. OBJECTIVE: Vital signs: Temperature 98 degrees, pulse 66, respirations 20, blood pressure 131/49. HEENT: Pupils are equal and round. Lungs: Clear in all lung wilkins. Cardiovascular: Regular rate without murmur or S3. Abdomen: Soft. Skin: Warm and dry. Urine output is 6900 mL. IMAGING: Chest x-ray from this morning, stable chest. PICC line in stable position. Pulmonary edema and bilateral pleural effusions, largest on the left. No new consolidation. ASSESSMENT: 1. Recent acute hypoxemic, hypercapnic respiratory failure. He had bilateral pleural effusions, worse on the left. A chest tube placed in the left, found a hemothorax. He did give some tPA to help the flow. Chest tube is out. He is doing much better. Chest x-ray still shows bilateral pleural effusion, but obviously clinically improved. 2. Transient atrial flutter. Continues to remain in sinus rhythm at this time. Had most of his trouble during his respiratory failure. 3. Left pleural effusion as noted above. 4. Status post radiation therapy for stage II non-small cell lung cancer in the chest on the right. No sign of advance or recurrence of that tumor. 5. Atherosclerotic coronary artery disease status post coronary artery bypass grafting 2016. 6. He had a cerebrovascular accident back in July 2017. PLAN: Seems to be improving on every Level. Continue physical therapy and continue present medications. I believe he is off antibiotics at this time. I believe Dr. Leija signed off on the . We stopped the Zyvox and Zosyn. cc: Km Palencia MD
[2018-05-29] MEDS: LOVENOX SUBQ SCH (11:11)
[2018-05-29] MEDS: CORDARONE PO SCH ×2 (11:13→22:34)
[2018-05-29] MEDS: NEXIUM PO SCH (11:14)
[2018-05-29] MEDS: LOPRESSOR PO SCH ×2 (11:14→22:34)
[2018-05-29] MEDS: KLOR-CON PO SCH (11:14)
[2018-05-29] MEDS: TYLENOL PO PRN (14:39)
[2018-05-29 20:44] LABS: ALLEN TEST YES; BE 16.1 mmoll (-3.0-3.0); BLOOD TYPE ARTERIAL; HCO3-(ACT) 37.4 mmoll (20.0-26.0); O2(CT) 9.6 mL/dL (15.0-23.0); PO2(98.6) 50 mmHg (60-100); SAMPLE BLOOD; SAO2 90.7 % (95.0-100.0); THB 7.7 g/dL (11.5-17.4); pH(98.6) 7.47 (7.35-7.45)
[2018-05-29 20:49] LABS: MODALITY CANNULA; O2HB 88.2 % (95.0-99.0); PCO2(98.6) 57 mmHg (35-45)
[2018-05-29] MEDS ORDERED: LASIX IV ONE (21:04)
--- NOTE | 2018-05-29 21:24 | Diag Imaging Result Doc PS360 ---
EXAM: CT HEAD W/WO CONTRAST INDICATION: AMS TECHNIQUE: This exam was performed using automated exposure control, adjustment of mA or kV according to patient size, and/or use of iterative reconstruction technique. COMPARISON: 05/19/2017 FINDINGS: There is left frontal encephalomalacia. This is in the area of a subacute infarct on the previous study. There is a stable chronic lacunar infarct associated with the right basal ganglion. There is stable mild white matter microangiopathy and diffuse brain atrophy. There is no definite acute infarct given the limited sensitivity of CT versus MRI. There is no discrete intracranial mass, mass effect, or intracranial hemorrhage. There is no evidence of abnormal intracranial enhancement. The surrounding soft tissues and bony structures are essentially unremarkable. IMPRESSION: Chronic changes as described. No evidence of acute intracranial pathology. Electronically signed by William Mondragon 05/29/2018 9:22 PM
--- NOTE | 2018-05-29 21:25 | Diag Imaging Result Doc PS360 ---
EXAM: CHEST-PORTABLE INDICATION: SOB TECHNIQUE: One view COMPARISON: 05/29/2018 FINDINGS: The left PICC line is in stable position. Pulmonary edema, pulmonary venous congestion, and bilateral effusions are stable. No new consolidation is identified. Cardiac silhouette is stable. IMPRESSION: Stable chest. Electronically signed by William Mondragon 05/29/2018 9:23 PM
[2018-05-29 23:04] LABS: BASO# 0.05 X1000 (0.0-0.2); BASO% 0.5 % (0.0-0.8); EOS# 0.24 X1000 (0.0-0.7); EOS% 2.4 % (0.0-10.0); HEMATOCRIT 33.4 % (42.0-52.0); HEMOGLOBIN 8.6 g/dL (14.0-18.0); IMM GRAN# 0.02 X1000 (0.0-0.04); IMM GRAN% 0.2 % (0.0-0.5); LYMPH# 1.74 X1000 (1.2-3.4); LYMPH% 17.5 % (20.5-51.1); MCH 18.3 PG (27-31); MCHC 25.7 g/dL (33-37); MCV 71.1 FL (81-99); MONO# 0.71 X1000 (0.11-0.59); MONO% 7.1 % (1.7-9.3); MPV 9.4 FL (7.4-10.4); NEUT# 7.21 X1000 (1.4-6.5); NEUT% 72.3 % (42.2-75.2); PLT 284 X1000 (130-400); RDW 23.5 % (11.5-14.5); WBC 9.97 X1000 (4.8-10.8)
[2018-05-29 23:16] LABS: AGAP 8; ALB/GLOB RATIO 0.8; ALKALINE PHOSPHATASE 99 U/L (32-122); BUN 16 mg/dL (8-22); CALCIUM 8.2 mg/dL (8.8-10.2); CHLORIDE 90 mmol/L (98-107); COSMO 269; CREATININE 0.8 mg/dL (0.7-1.2); ESTIMATED GFR > 60; GLUCOSE 133 mg/dL (70-104); GOT 12 U/L (10-34); GPT 5 U/L (10-44); POTASSIUM 4.3 mmol/L (3.5-5.1); SODIUM 133 mmol/L (136-145); TCO2 35 mmol/L (25-35); TOTAL BILIRUBIN 0.18 mg/dL (0.20-1.00); TOTAL PROTEIN 6.9 g/dL (6.3-8.3)
[2018-05-30] MEDS: LASIX IV SCH ×3 (00:49→23:31)
[2018-05-30] MEDS: HUMULIN R SUBQ SCH ×4 (00:55→17:03)
[2018-05-30 02:01] LABS: URINE SOURCE CATH
[2018-05-30 02:03] LABS: BILIRUBIN URINE NEGATIVE (NEGATIVE); BLOOD URINE NEGATIVE (NEGATIVE); COLOR STRAW; GLUCOSE URINE NEGATIVE (NEGATIVE); KETONE URINE NEGATIVE (NEGATIVE); LEUKOCYTES URINE NEGATIVE (NEGATIVE); NITRITE URINE NEGATIVE (NEGATIVE); PH URINE 7.5; PROTEIN URINE NEGATIVE (NEGATIVE); TURBIDITY URINE CLEAR (CLEAR); UROBILINOGEN URINE NORMAL (NORMAL)
[2018-05-30 02:05] LABS: UR EPITHELIAL CELLS <10 /HPF (<10); URINE BACTERIA NEGATIVE /HPF; URINE RBC <10 /HPF (<10); URINE WBC <10 /HPF (<10)
[2018-05-30] MEDS: XOPENEX NEB INH SCH ×6 (03:22→23:35)
[2018-05-30 04:31] LABS: ALLEN TEST YES; BE 18.1 mmoll (-3.0-3.0); BLOOD TYPE ARTERIAL; METHB 0.9 % (0.0-1.5); O2(CT) 11.3 mL/dL (15.0-23.0); O2HB 94.4 % (95.0-99.0); PO2(98.6) 77 mmHg (60-100); SAMPLE BLOOD; SAO2 96.8 % (95.0-100.0); THB 8.4 g/dL (11.5-17.4); pH(98.6) 7.46 (7.35-7.45)
[2018-05-30 04:35] LABS: MODALITY CANNULA
[2018-05-30 06:23] LABS: AGAP 7; BUN 13 mg/dL (8-22); CALCIUM 8.5 mg/dL (8.8-10.2); CHLORIDE 91 mmol/L (98-107); COSMO 272; CREATININE 0.6 mg/dL (0.7-1.2); ESTIMATED GFR > 60; GLUCOSE 126 mg/dL (70-104); POTASSIUM 3.7 mmol/L (3.5-5.1); SODIUM 135 mmol/L (136-145); TCO2 37 mmol/L (25-35)
[2018-05-30] MEDS ORDERED: POTASSIUM CHLORIDE 40 MEQ/SWI 40 MEQ/100 ML IVPB IV ONE (07:17)
--- NOTE | 2018-05-30 07:33 | PROGRESS NOTE ---
DATE: 05/30/2018 SUBJECTIVE: Mr. Benitez apparently was obtunded yesterday. Difficult to arouse him and concerned about his O2 saturations. They moved him to the unit. There, states he has been doing fine. He is awake and talking on the phone. He has remained in sinus rhythm. PHYSICAL EXAMINATION: Temperature is 98.1 degrees, pulse 60, respirations 19, blood pressure 153/57. Pupils are equal and round. Lungs are clear in all lung wilkins. Cardiovascular Examination: Regular rhythm and rate without murmur or S3. Abdomen is soft. Skin is warm and dry. Urine output was 4200 mL. Blood sugar 153, 180, 135. He had a head CT done. No evidence of any intracranial pathology. His chest x-ray from yesterday, stable chest. PICC line in stable position. Pulmonary edema, pulmonary venous congestion, and bilateral effusions stable. No new consolidation. Cardiac silhouette was stable. ASSESSMENT AND PLAN: 1. Recent acute hypoxemic, hypercapnic respiratory failure and bilateral pleural effusions, worse on the left. He had a chest tube. Revealed hemothorax. Drained out a couple of liters really of fluid and the tube was removed. He is doing much better. 2. Transient atrial flutter but he has remained in sinus rhythm. 3. Left pleural effusion. He has had bilateral pleural effusions, left greater than right, as above. 4. Status post radiation therapy for stage II non-small cell lung cancer. 5. History of atherosclerotic coronary artery disease, coronary artery bypass grafting in 2017. 6. He has had a cerebrovascular accident back in July of 2017. I am not sure what the episode was yesterday but he appears stable. Hopefully, we can move him back to the floor. His chemistries look good. Sodium 135, potassium 3.7, chloride 91, BUN 13, creatinine 0.6. REVIEW OF HIS ORDERS: I do not see any change at this point. He is getting amiodarone 200 mg a day, Nexium 40 mg a day, Lasix 40 mg IV q.12. He has Lopressor ordered p.r.n. elevated heart rate at 5 mg IV q.6 hours, Lopressor 25 mg p.o. q.12 hours, and I think he got one dose of Lasix 60 mg yesterday in addition. cc: Km Palencia MD
--- NOTE | 2018-05-30 07:37 | Diag Imaging Result Doc PS360 ---
EXAM: CHEST-PORTABLE INDICATION: respiratory failure TECHNIQUE: One view COMPARISON: 05/29/2018 FINDINGS: The left PICC line is in stable position. Pulmonary edema and bilateral effusions are essentially stable given differences in inspiration and positioning. No new consolidation is identified. Cardiac silhouette is stable. IMPRESSION: Essentially stable chest. Electronically signed by William Mondragon 05/30/2018 7:35 AM
[2018-05-30] MEDS: NEXIUM PO SCH (08:06)
[2018-05-30] MEDS: LOPRESSOR PO SCH ×2 (08:06→23:33)
[2018-05-30] MEDS: KLOR-CON PO SCH (08:06)
[2018-05-30] MEDS: CORDARONE PO SCH (08:07)
[2018-05-30] MEDS: LOVENOX SUBQ SCH (08:07)
[2018-05-31] MEDS: XOPENEX NEB INH SCH ×6 (03:47→23:05)
[2018-05-31 06:53] LABS: AGAP 6; BUN 14 mg/dL (8-22); CALCIUM 8.4 mg/dL (8.8-10.2); CHLORIDE 93 mmol/L (98-107); COSMO 278; CREATININE 0.6 mg/dL (0.7-1.2); ESTIMATED GFR > 60; GLUCOSE 126 mg/dL (70-104); POTASSIUM 3.7 mmol/L (3.5-5.1); SODIUM 138 mmol/L (136-145); TCO2 39 mmol/L (25-35)
--- NOTE | 2018-05-31 07:05 | Diag Imaging Result Doc PS360 ---
EXAM: CHEST-PORTABLE 05/31/2018 HISTORY: respiratory failure TECHNIQUE: AP portable at 0535 COMMENT: There is pleural thickening and/or fluid bilaterally particularly on the left. There is generalized interstitial pulmonary edema. There is cardiomegaly. There has been no appreciable change since 05/30/2018. Compared to 05/29/2018 there has been some improvement with regard to pneumatization of the right lower lobe. IMPRESSION: Cardiomegaly and pulmonary edema with bilateral pleural effusions. Electronically signed by Lauro Bass 05/31/2018 7:02 AM
[2018-05-31] MEDS: HUMULIN R SUBQ SCH ×4 (07:51→18:53)
[2018-05-31] MEDS: NEXIUM PO SCH (08:40)
[2018-05-31] MEDS: KLOR-CON PO SCH (08:41)
[2018-05-31] MEDS: CORDARONE PO SCH (08:41)
[2018-05-31] MEDS: LOVENOX SUBQ SCH (08:42)
[2018-05-31] MEDS: LOPRESSOR PO SCH ×2 (08:43→23:13)
[2018-05-31] MEDS: LASIX IV SCH (11:34)
--- NOTE | 2018-05-31 12:05 | PROGRESS NOTE ---
DATE: 05/31/2018 SUBJECTIVE: Mr. Benitez is awake and alert, feels good, breathing comfortably. Remains afebrile. Seems to be doing a little stronger. Good p.o. intake now. He was moved to the unit after he seemed to be a little bit obtunded. Concerned about blood pressure, but he actually seems to be doing well. Moving back to the floor today. OBJECTIVE: Vitals: Temperature 97.6 degrees, pulse 66, respirations 22, blood pressure 102/48. Eyes: Pupils are equal and round. Lungs: Clear in all lung wilkins. Cardiovascular: Regular rhythm and rate without murmur or S3. Abdomen: Soft. Skin: Warm and dry. URINE OUTPUT: 4400 mL. LABORATORY: Reviewed. Chemistries this morning, sodium 138, potassium 3.7, chloride 93, BUN 14, creatinine 0.6. Blood sugars have been 130, 134, 126, 137. IMAGING: His chest x-ray from this morning, cardiomegaly, pulmonary edema with bilateral pleural effusions. ASSESSMENT AND PLAN: 1. Recent acute hypoxemic hypercapnic respiratory failure with bilateral pleural effusions. He had a chest tube which revealed hemothorax in the left side and this drained out quite a bit of fluid and tube was removed. He seems to be getting stronger, doing better. We did move him back to the unit after he had an episode with the nurses worried about him not waking up very well. 2. Transient atrial flutter. He remains in sinus rhythm. Rate is controlled. 3. Left pleural effusion, greater than right pleural effusion, but much better. Respiratory status is markedly improved. 4. Status post radiation for stage II non-small cell lung cancer on the right. No sign of recurrence. 5. Coronary artery disease, status post bypass grafting 2016. 6. He had a cerebrovascular accident back in July 2017 and so we are going to continue physical therapy and we are looking for rehab potentials. I think he has been to [facility] before. 1. Review of his orders, I do not see any change. We are looking for rehab spot. Move him back to the floor. cc: Km Palencia MD
--- NOTE | 2018-05-31 18:19 | PULMONOLOGY PROGRESS NOTE ---
DATE: 05/31/2018 INTERIM HISTORY: The patient was obtunded yesterday by report and was transferred to the Intensive Care Unit. He is significantly improved. He is now awake, alert, and conversant. He was speaking at length about his 2 Corvettes. OBJECTIVE: Vital Signs: The patient has been afebrile for the last 24 hours. Blood pressure 104/42, heart rate 72, respiratory rate 19, oxygen saturation 98%. HEENT: Pupils are equal and reactive. Oropharynx appears clear. Neck: Supple. Chest: Reveals crackles in both lung bases. Cardiac: S1, S2. Abdomen: Soft. Extremities: Without edema. DIAGNOSTIC STUDIES: Sodium 138, potassium 3.7, chloride 93, bicarbonate 39, BUN 14, creatinine 0.6, glucose 126. Chest x-ray reveals pleural fluid bilaterally with cardiomegaly and interstitial edema. Mild improvement over the last 2 days. IMPRESSION: A 77-year-old with: 1. Acute hypoxemic respiratory failure, hemothorax status post chest tube placement and tPA. 2. Intermittent atrial fibrillation. 3. Severe deconditioning. 4. Protein-calorie malnutrition. 5. Early stage lung cancer status post radiation therapy without evidence of recurrence. RECOMMENDATIONS: 1. Agree with plans for transferring back to the floor. 2. Encouraged physical therapy. 3. Encouraged p.o. intake. 4. Wean oxygen as tolerated. cc: MD Km Harrison MD
[2018-05-31 20:16] LABS: PCO2(98.6) 62 mmHg (35-45)
[2018-06-01] MEDS: HUMULIN R SUBQ SCH ×4 (00:13→18:23)
[2018-06-01] MEDS: LASIX IV SCH ×2 (00:13→13:55)
[2018-06-01] MEDS: TYLENOL PO PRN (01:09)
[2018-06-01] MEDS: XOPENEX NEB INH SCH ×6 (03:10→23:13)
[2018-06-01 06:40] LABS: AGAP 7; BUN 13 mg/dL (8-22); CALCIUM 8.1 mg/dL (8.8-10.2); CHLORIDE 91 mmol/L (98-107); COSMO 272; CREATININE 0.5 mg/dL (0.7-1.2); ESTIMATED GFR > 60; GLUCOSE 124 mg/dL (70-104); POTASSIUM 3.8 mmol/L (3.5-5.1); SODIUM 135 mmol/L (136-145); TCO2 37 mmol/L (25-35)
--- NOTE | 2018-06-01 07:36 | Diag Imaging Result Doc PS360 ---
EXAM: CHEST-PORTABLE INDICATION: respiratory failure TECHNIQUE: One view COMPARISON: 05/31/2018 FINDINGS: The left PICC line is in stable position. Lung volumes are lower. Interstitial infiltrates most compatible with edema are essentially stable. Bilateral pleural effusions and/or pleural thickening is essentially stable. No new consolidation is identified. Cardiac silhouette is stable. IMPRESSION: Lower lung volumes but stable chest, otherwise. Electronically signed by William Mondragon 06/01/2018 7:34 AM
[2018-06-01] MEDS: LOPRESSOR PO SCH ×2 (08:37→22:12)
[2018-06-01] MEDS: NEXIUM PO SCH (08:37)
[2018-06-01] MEDS: KLOR-CON PO SCH (08:37)
[2018-06-01] MEDS: CORDARONE PO SCH (08:38)
[2018-06-01] MEDS: LOVENOX SUBQ SCH (08:38)
--- NOTE | 2018-06-01 08:46 | PROGRESS NOTE ---
DATE: 06/01/2018 SUBJECTIVE: Mr. Benitez was back on the regular floor. He is anxious to go home. He has not walked much. He was talking about going home with home health. We need to make sure he is walking. Also, we need to make sure that he has oxygen at home. I think he already is eligible for oxygen, but we will we will make sure about that. OBJECTIVE: Temperature 98 degrees, pulse 70, respirations 18, and blood pressure 150/49. Pupils are equal. No distended neck veins. Lungs are clear anterolateral. Cardiovascular exam with regular rhythm and rate without murmur or S3. Abdomen is soft. Skin is warm and dry. Urine output is 4200 mL. LABORATORY: Blood sugar 130, 137, 232 and 146. White count 9970, hematocrit 33, and platelet count is 284,000. Sodium 135, potassium 3.8, chloride 91, BUN 13, and creatinine 0.5. DIAGNOSTIC: Chest x-ray from this morning, lung volumes stable. PICC line in stable position. Lung volumes are lower, interstitial infiltrates most compatible with edema and essentially stable. Bilateral pleural effusions, pleural thickening, which is essentially stable. ASSESSMENT AND PLAN: 1. Acute hypoxic respiratory failure and hemothorax status post chest tube placement and tPA. He is doing much better clinically. The goal is I guess to try and get him home although he may benefit from rehab. We are still having that discussion. 2. Intermittent atrial fibrillation. He is in sinus rhythm. 3. Severe deconditioning. Continue physical therapy. 4. Protein calorie malnutrition. 5. Status post radiation therapy for lung cancer on the right, stage IIA. No sign thus far and no evidence for recurrence, although he had hemothorax, and I am not sure of the cause of that. 6. Review of his medications, I do not see any change. 7. Physical Therapy is working with him. 8. I will get Respiratory to see where he is as far as his oxygen needs. cc: Km Palencia MD
--- NOTE | 2018-06-01 20:47 | PULMONOLOGY PROGRESS NOTE ---
DATE: 06/01/2018 SUBJECTIVE: The patient is awake and alert. He reports he is going to stay in the hospital 1 more day. Physical therapy is working with him, but he had difficulty standing. He continues to have a flat affect with marginal motivation by my observation. OBJECTIVE: Vital Signs: Blood pressure 144/42, heart rate 66, respiratory rate 18, oxygen saturation 97% on nasal cannula. HEENT: Pupils are equal and reactive. Oropharynx is clear. Neck: Is supple. Chest: Reveals faint crackles in both lung bases. Cardiac: S1-S2. Abdomen: Soft without hepatosplenomegaly. Extremities: Reveal decreasing edema. LABORATORY DATA: Sodium 135, potassium 3.8, chloride 91, bicarbonate 37, BUN 13, creatinine 0.5. Chest x-ray reveals shallow inspiration and a lordotic view without significant change. IMPRESSION: A 77-year-old with 1. Acute hypoxemic respiratory failure. 2. Hemothorax, status post chest tube placement and tPA. 3. Intermittent atrial fibrillation. 4. Protein calorie malnutrition. 5. Severe deconditioning. 6. Early stage lung cancer with radiation therapy without evidence of recurrence. RECOMMENDATIONS: 1. Encourage p.o. intake. 2. Continue physical therapy. 3. Wean oxygen as tolerated. 4. The patient is marginally motivated and I have not seen patient's have the ability to motivate him to be more mobile or progress with physical therapy. I would recommend the patient go to inpatient physical therapy rehab site, although if the patient continues to have a flat affect, he may be difficult to rehabilitate. cc: MD Km Harrison MD
[2018-06-02] MEDS: LASIX IV SCH ×2 (01:40→12:31)
[2018-06-02] MEDS: HUMULIN R SUBQ SCH ×4 (01:41→18:25)
[2018-06-02] MEDS: XOPENEX NEB INH SCH ×7 (03:15→23:10)
[2018-06-02 06:31] LABS: AGAP 9; BUN 11 mg/dL (8-22); CALCIUM 8.6 mg/dL (8.8-10.2); CHLORIDE 93 mmol/L (98-107); COSMO 273; CREATININE 0.5 mg/dL (0.7-1.2); ESTIMATED GFR > 60; GLUCOSE 133 mg/dL (70-104); POTASSIUM 3.7 mmol/L (3.5-5.1); SODIUM 136 mmol/L (136-145); TCO2 34 mmol/L (25-35)
--- NOTE | 2018-06-02 07:07 | Diag Imaging Result Doc PS360 ---
EXAM: CHEST-PORTABLE 06/02/2018 HISTORY: respiratory failure TECHNIQUE: AP portable at 0546 COMMENT: There is bilateral pleural effusion. There is slightly better pneumatization of the lung bases than on the previous study of 06/01/2018. There is still likely interstitial edema and subsegmental atelectasis bilaterally. IMPRESSION: Improved bibasilar atelectasis. Pulmonary edema and pleural effusions. Electronically signed by Lauro Bass 06/02/2018 7:05 AM
--- NOTE | 2018-06-02 08:53 | PROGRESS NOTE ---
DATE: 06/02/2018 SUBJECTIVE: Mr. Benitez was awake. He was eating breakfast. He ate over half of his breakfast. No complaints. I think he looks stronger and his breathing is comfortable. OBJECTIVE: Vital signs: He remains afebrile, temperature 98.2 degrees, pulse 74, respirations 18, blood pressure 128/48. Eyes: Pupils are equal and round. Lungs: Clear in all lung wilkins. Cardiovascular: Regular rhythm and rate without murmur or S3. Abdomen: Soft. Skin: Warm and dry. URINE OUTPUT: 6400 mL. IMAGING: Chest x-ray from this morning, improved bibasilar atelectasis, pulmonary edema and pleural effusions appreciated. ASSESSMENT AND PLAN: 1. Acute hypoxemic respiratory failure. 2. Hemothorax, status post chest tube placement and TPA. Not sure of the cause of hemothorax. We will keep him off of blood thinner. 3. History of atrial fibrillation, rate controlled. 4. Protein calorie malnutrition. 5. Severe deconditioning, weakness, which is improving. 6. Early stage lung cancer. I think it was 2a day in the right lung without evidence of recurrence. We will continue physical therapy. He is wanting to go home, but he will have to be able to ambulate, so we are going to continue physical therapy and see how we do. I want them to entertain going to rehab if we are not able to ambulate or bear weight. I am going to stop his Armijo catheter. LABORATORY DATA REVIEW: Sodium 136, potassium 3.7, chloride 90, BUN 11, creatinine 0.5, blood sugars 119, 126, 133, 138. cc: Km Palencia MD
[2018-06-02] MEDS: LOPRESSOR PO SCH ×2 (09:23→22:09)
[2018-06-02] MEDS: NEXIUM PO SCH (09:23)
[2018-06-02] MEDS: CORDARONE PO SCH (09:23)
[2018-06-02] MEDS: LOVENOX SUBQ SCH (09:23)
[2018-06-02] MEDS: KLOR-CON PO SCH (09:23)
[2018-06-03] MEDS: HUMULIN R SUBQ SCH ×3 (00:27→16:52)
[2018-06-03] MEDS: LASIX IV SCH ×2 (00:59→14:15)
--- NOTE | 2018-06-03 01:54 | PULMONOLOGY PROGRESS NOTE ---
DATE: 06/02/2018 SUBJECTIVE: The patient is awake, alert, and conversant. He is eating breakfast. He reports he is stronger. He was able to stand but required significant assistance today. OBJECTIVE: Vital Signs: The patient has been afebrile for the last 24 hours. Blood pressure 148/45, heart rate 71, respiratory rate 24, oxygen saturation 94%. HEENT: Pupils are equal and reactive. Oropharynx is clear. Neck: Supple. Chest: Reveals good air entry bilaterally with crackles in both lung bases. Cardiac: S1-S2. Abdomen: Soft. Extremities: Without edema. LABORATORIES: Chest exam is slightly lordotic with bilateral effusions present. White blood count 136. Potassium 3.7, chloride 93, bicarbonate 34, BUN 11, creatinine 0.5. IMPRESSION: A 77-year-old with: 1. Acute hypoxemic respiratory failure. 2. Hemothorax, status post chest tube placement and tPA. 3. Intermittent atrial fibrillation. 4. Protein calorie malnutrition. 5. Severe deconditioning. 6. Early stage lung cancer, status post radiation therapy, without evidence of recurrence. RECOMMENDATIONS: 1. Encourage p.o. intake. 2. Continue physical therapy. 3. Wean oxygen as tolerated. 4. The patient reported this morning that he would like to go to an inpatient rehabilitation stay to gain strength. This has been strongly encouraged and hopefully he can be discharged to the rehab facility in the near future. He will need to be transitioned to oral Lasix at the time of discharge. cc: MD Km Harrison MD
[2018-06-03] MEDS: XOPENEX NEB INH SCH ×6 (03:00→23:11)
[2018-06-03 06:41] LABS: AGAP 7; BUN 12 mg/dL (8-22); CALCIUM 7.9 mg/dL (8.8-10.2); CHLORIDE 94 mmol/L (98-107); COSMO 273; CREATININE 0.6 mg/dL (0.7-1.2); ESTIMATED GFR > 60; GLUCOSE 127 mg/dL (70-104); POTASSIUM 3.8 mmol/L (3.5-5.1); SODIUM 136 mmol/L (136-145); TCO2 35 mmol/L (25-35)
--- NOTE | 2018-06-03 06:44 | Diag Imaging Result Doc PS360 ---
EXAM: CHEST-PORTABLE HISTORY: respiratory failure TECHNIQUE: Portable chest single view COMPARISON: 06/02/2018 FINDINGS: There are sternal wires and surgical clips in the left-sided PICC line. No change in the moderate-sized left-sided pleural effusion and a small right pleural effusion. Pulmonary edema remains as well as basilar atelectasis. There may be underlying infiltrates as well. IMPRESSION: No interval improvement. Electronically signed by Yong Zamudio 06/03/2018 6:42 AM
[2018-06-03] MEDS: NS NEB INH SCH (07:52)
--- NOTE | 2018-06-03 08:46 | PROGRESS NOTE ---
DATE: 06/03/2018 SUBJECTIVE: Mr. Benitez was sleeping, but he aroused and seemed to be in no distress, breathing comfortably. We are working on his physical therapy. Looking at the notes, he got in the semi- Yadav's position. His treatment, I do not see where he has been able to stand yet and he does not remember. PHYSICAL EXAMINATION: Vital signs: Temperature 98.3 degrees, pulse 59, respirations 16, blood pressure 154/45. Head and neck: Pupils were equal. No distended neck veins. Lungs: Clear anterolateral. Cardiovascular: Regular rhythm and rate without murmur or S3. Abdomen: Soft. Skin: Warm and dry. Blood sugar 138, 205, 96. IMAGING: Chest x-ray from yesterday, no interval improvement. Still can see sternal wires, surgical clips on left side. PICC line on the left side. No change in moderate-sized left-sided pleural effusion, small right pleural effusion. Pulmonary edema remains, basilar atelectasis. ASSESSMENT AND PLAN: 1. Acute hypoxemic respiratory failure. 2. Hemothorax status post chest tube placement with tPA in the left side of his chest. Chest tube is out. Respiratory status clinically improved, better air and gas exchange. 3. Intermittent atrial fibrillation. 4. Protein calorie malnutrition. 5. Severe deconditioning. 6. Early stage lung cancer on the right side status post radiation therapy. No evidence of recurrence. LABORATORY DATA: No recent lab for CBC, but blood sugar has been 205, 96, 133. His electrolytes: Sodium 136, potassium 3.5, chloride 94, BUN 12, creatinine 0.6. ASSESSMENT AND PLAN: As above. We are going to need to continue to try and get him up and standing. I will ask Physical Therapy and Occupational Therapy to continue to try and pursue that goal. If he cannot stand and make some steps, he is going to need to go to physical therapy inpatient. They would like to go home, but he is going to have to have some weightbearing before we are able to do that. cc: Km Palencia MD
[2018-06-03] MEDS: NEXIUM PO SCH ×2 (10:49→14:15)
[2018-06-03] MEDS: LOVENOX SUBQ SCH ×2 (10:49→14:16)
[2018-06-03] MEDS: CORDARONE PO SCH ×2 (10:49→14:15)
[2018-06-03] MEDS: KLOR-CON PO SCH ×2 (10:50→14:15)
[2018-06-03] MEDS: LOPRESSOR PO SCH ×4 (10:50→21:08)
[2018-06-03] MEDS: TYLENOL PO PRN (21:14)
--- NOTE | 2018-06-03 21:23 | PULMONOLOGY PROGRESS NOTE ---
DATE: 06/03/2018 SUBJECTIVE: The patient is awake, alert and conversant. He reports standing today with physical therapy. He has not been able to ambulate. OBJECTIVE: Vital Signs: The patient has been afebrile for the last 24 hours. BP 143/51, heart rate 66, respiratory rate 16, oxygen saturation 100% on nasal cannula. HEENT: Pupils are equal and reactive. Oropharynx appears clear. Neck: Supple. Chest: Reveals crackles in both lung bases. Cardiac exam: S1-S2. Abdomen: Soft without hepatosplenomegaly. Extremities: Reveal continued decrease in total body water. LABORATORIES: Chest x-ray reveals moderate effusion on the left, small effusion on the right, with increased interstitial markings bilaterally without significant change. Sodium 136, potassium 3.8, chloride 94, bicarbonate 35, BUN 12, creatinine 0.6. IMPRESSION: A 77-year-old with: 1. Acute hypoxemic respiratory failure. 2. Hemothorax, status post chest tube placement and tPA. 3. Intermittent atrial fibrillation. 4. Protein calorie malnutrition. 5. Status post treatment for early stage lung cancer with radiation therapy. No evidence of recurrence. 6. Severe deconditioning. RECOMMENDATIONS: 1. Continue physical therapy. 2. Continue to encourage p.o. intake. 3. Continue oxygen. 4. Anticipate discharge to a rehabilitation facility or to home with home rehab in the near future. cc: MD Km Harrison MD
[2018-06-04] MEDS: HUMULIN R SUBQ SCH ×3 (01:18→12:36)
[2018-06-04] MEDS: LASIX IV SCH (01:19)
[2018-06-04] MEDS: XOPENEX NEB INH SCH ×3 (04:02→10:40)
[2018-06-04] MEDS: CORDARONE PO SCH (08:43)
[2018-06-04] MEDS: KLOR-CON PO SCH (08:43)
[2018-06-04] MEDS: LOPRESSOR PO SCH (08:43)
[2018-06-04] MEDS: LOVENOX SUBQ SCH (08:43)
[2018-06-04] MEDS: NEXIUM PO SCH (08:43)
--- NOTE | 2018-06-04 09:26 | DISCHARGE SUMMARY ---
ADMISSION DATE: 05/07/2018 DISCHARGE DATE: 06/04/2018 He presented from home with history of increased dyspnea, shortness of breath for the last 2 weeks. The last 3-4 days became more progressed and he had a couple weeks ago fallen and hurt his ribs on his right side. He was found on admission to have large bilateral large bilateral pleural effusions, left much greater than the right, questionable pneumonia and atelectasis. PAST MEDICAL HISTORY: 1. Hypertension. 2. Diabetes mellitus type 2. 3. Hyperlipidemia. 4. Lung cancer. 5. Coronary artery disease. PAST SURGICAL HISTORY: He had CABG done in 03/06/2017 at [facility]. So thoracentesis was attempted with Radiology but was unable to draw back any pleural fluid. Concerned that it was inflammatory and thick. This was done under thoracentesis on 05/10/2017. Dr. Trevizo was consulted as well as Dr. Sifuentes and there was a question on whether we should consider thoracotomy or partial thoracotomy or try a chest tube. He meanwhile became more short of breath with acute hypoxemic respiratory failure and he had to be intubated and moved to the unit. He was on broad- spectrum antibiotics. Dr. Sifuentes was following and a chest tube was placed in the left chest. Initially received some drainage that was bloody drainage consistent with a hemothorax. He went into atrial fibrillation and in atrial flutter, started on amiodarone. Infectious Disease was asked to follow treating him for hospital-acquired pneumonia, broad-spectrum antibiotics. The patient was on Zosyn and added Zyvox. On 05/17/2018, Dr. Sifuentes placed a chest tube and had a loculated left pleural effusion. He had a 32 trocar chest tube placed in space with some drainage and the drainage did slow down the following day, was given some tPA through the chest tube. He had an echocardiogram done on 05/18, ejection fraction in the range of 45 to 50, left ventricular systolic function mildly impaired. No valvular dysfunction. The patient was extubated. Chest CT done on 05/19, improved left loculated pleural fluid collection and his respiratory status continued to improve. Chest x-ray on 05/20/2018 showed stability of the pleural fluids, bilateral atelectasis and probable infiltrates so kept him on antibiotics and chest x-ray on 05/22, slight interval improvement in the right lung, clinically improved. We were able to move him to the floor. He was eating well. He had a repeat echocardiogram on 05/24/2018 with limited views. Ejection fraction still estimated about 45 to 50%. Normal left ventricular cavity size at that time. No pericardial effusion. He was unable to stand or bear weight, but was improving in his general strength and he really wanted to go home with home health, but talked him into going to rehab. He had episodes of some confusion and delirium, which has improved as well. He had a CT of his head done on 05/29/2018. 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 He was on nasal cannula. Able to take out his Armijo catheter and felt he was ready go to rehab on 06/04/2018. DISCHARGE DIAGNOSES: 1. Acute hypoxemic respiratory failure. 2. Hemothorax on the right, status post chest tube with tPA. 3. Intermittent atrial fibrillation. 4. Protein calorie malnutrition. He is eating well at this point. 5. Status post treatment several years ago for right-sided stage IIA lung cancer. No evidence of recurrence at this point. 6. Severe deconditioning. DISCHARGE ORDERS: He will be on amiodarone 200 mg a day, Lovenox. We will we will stop his Nexium 40 mg a day, Lasix 40 mg p.o. twice a day. He is on Xopenex nebulized inhalers q.4 hours, Lopressor we will stop, he was getting that p.r.n., IV Lopressor. We will give him Lopressor 25 mg p.o. q.12, Klor-Con 40 mEq a day and continue his O2 at 2 L per nasal cannula. cc: Km Palencia MD
[2018-06-04 13:15] VITALS: BP 116/50
== END 2018-06-04 14:34 | DRG 208 ==
LOC: SUPCPDRO → ED 09:31 → EDIPHOLD 14:14 → 3S 16:42 → ICU 05-13 16:06 → 4N 05-26 17:59 → ICU 05-29 22:21 → 4N 05-31 15:21
PROVIDERS: ADMIT Emergency Medicine; ATTEND Emergency Medicine
PROC: MS.CXOR (2018-05-13 14:45)
CPT/HCPCS: 31500; 32421; 32555; 36569; 70470; 71010; 71020; 71045; 71046; 71101; 71250; 71260; 73502; 80048; 80053; 81001; 82378; 82465; 82784; 82805; 82948; 83735; 83880; 84100; 84134; 84145; 84155; 84165; 84478; 84484; 85025; 85379; 85610; 86038; 86200; 86334; 86403; 86480; 86850; 86900; 86901; 86920; 87040; 87070; 87205; 87385; 87449; 87899; 88305; 89220; 92610; 93005; 93010; 93306; 93308; 94002; 94003; 94640; 94660; 94761; 94762; 94799; 96361; 96365; 97110; 97162; 97530; 99285; 99999; A9270; C8929; C9113; J0282; J0330; J1630; J1650; J1940; J2020; J2060; J2250; J2370; J2543; J2997; J3010; J3480; J3486; J7030; J7050; J7060; Q9957; Q9967; S0164; XXXXX

== ENCOUNTER 2018-06-21 17:50 | Inpatient (IN) ==
[2018-06-21 19:04] LABS: ALLEN TEST YES; BE 10.6 mmoll (-3.0-3.0); BLOOD TYPE ARTERIAL; HCO3-(ACT) 33.2 mmoll (20.0-26.0); METHB 0.6 % (0.0-1.5); O2HB 96.8 % (95.0-99.0); PCO2(98.6) 50 mmHg (35-45); PO2(98.6) 139 mmHg (60-100); SAMPLE BLOOD; SAO2 99.9 % (95.0-100.0); THB 8.6 g/dL (11.5-17.4); pH(98.6) 7.46 (7.35-7.45)
[2018-06-21 19:05] LABS: MODALITY NRB
[2018-06-21 19:44] LABS: BASO# 0.06 X1000 (0.0-0.2); BASO% 0.6 % (0.0-0.8); EOS# 0.13 X1000 (0.0-0.7); EOS% 1.3 % (0.0-10.0); HEMATOCRIT 34.5 % (42.0-52.0); HEMOGLOBIN 9.4 g/dL (14.0-18.0); IMM GRAN# 0.04 X1000 (0.0-0.04); IMM GRAN% 0.4 % (0.0-0.5); LYMPH# 1.79 X1000 (1.2-3.4); LYMPH% 18.1 % (20.5-51.1); MCH 18.7 PG (27-31); MCHC 27.2 g/dL (33-37); MCV 68.5 FL (81-99); MONO# 0.81 X1000 (0.11-0.59); MONO% 8.2 % (1.7-9.3); MPV 9.3 FL (7.4-10.4); NEUT# 7.06 X1000 (1.4-6.5); NEUT% 71.4 % (42.2-75.2); PLT 355 X1000 (130-400); RBC 5.04 XMIL (4.7-6.1); RDW 20.6 % (11.5-14.5); WBC 9.89 X1000 (4.8-10.8)
--- NOTE | 2018-06-21 19:56 | Diag Imaging Result Doc PS360 ---
EXAM: CHEST-PORTABLE HISTORY: sob TECHNIQUE: Portable chest single view COMPARISON: 06/03/2018 FINDINGS: Poor inspiratory effort. There is a moderate sized left pleural effusion with a small right pleural effusion. Sternal wires and surgical clips are present. There is mild pulmonary edema. There is atelectasis in the left lung base and there may be underlying infiltrates as well. Interval removal of the left-sided PICC line. IMPRESSION: Pleural effusions with pulmonary edema. Electronically signed by Yong Zamudio 06/21/2018 7:54 PM
[2018-06-21 20:22] LABS: AGAP 9; ALB/GLOB RATIO 0.8; ALBUMIN 2.5 g/dL (3.5-5.0); ALKALINE PHOSPHATASE 87 U/L (32-122); BUN 18 mg/dL (8-22); CALCIUM 8.2 mg/dL (8.8-10.2); CHLORIDE 93 mmol/L (98-107); CK PROFILE 18 U/L (24-204); COSMO 270; CREATININE 0.9 mg/dL (0.7-1.2); ESTIMATED GFR > 60; GLUCOSE 121 mg/dL (70-104); GOT 10 U/L (10-34); GPT < 5 U/L (10-44); POTASSIUM 4.4 mmol/L (3.5-5.1); SODIUM 133 mmol/L (136-145); TCO2 31 mmol/L (25-35); TOTAL BILIRUBIN 0.17 mg/dL (0.20-1.00); TOTAL PROTEIN 5.8 g/dL (6.3-8.3)
[2018-06-21 20:24] LABS: INR 0.93; PROTIME 13.2 Seconds (11.0-16.0)
[2018-06-21 20:25] LABS: PTT 34.3 Seconds (22.3-41.8)
[2018-06-21] MEDS ORDERED: LASIX IV ONE (20:52)
--- NOTE | 2018-06-21 21:46 | Diag Imaging Result Doc PS360 ---
EXAM: CT ANGIOGRM PULMONARY ARTERIES HISTORY: PE TECHNIQUE: CT chest with intravenous contrast. Pulmonary arterial protocol with MIP images COMPARISON: 05/19/2018 FINDINGS: Slight interval increase in the size of the loculated fluid collection inferiorly on the left. The left-sided chest tube has been removed. Small right pleural effusion similar to the prior exam. The heart remains enlarged. Sternal wires are present Bilateral atelectasis, pulmonary edema, and increased interstitial markings persist. There are several filling defects in the arterial system most pronounced in the right upper lobe. No large central pulmonary emboli in the main pulmonary arteries. IMPRESSION: Pulmonary emboli most pronounced in the right upper lobe This report was discussed with Dr. Villatoro the emergency room on 06/21/2018 at 9:45 PM and was readback. This exam was performed using automated exposure control, adjustment of mA or kV according to patient size, and/or use of iterative reconstruction technique. Electronically signed by Yong Zamudio 06/21/2018 9:43 PM
--- NOTE | 2018-06-21 23:01 | PROVIDER DOCUMENTATION ---
This chart was entered by Joshua Shipman Scribe, acting as scribe for Daina Villatoro MD. HPI-Respiratory General - General Chief Complaint: Shortness of Breath Stated Complaint: SOB/low o2 sat Time Seen by Provider: 06/21/18 18:13 Source: patient Allergies/Adverse Reactions: Patient Allergies Allergy/AdvReac Type Severity Reaction Status Date / Time lisinopril Allergy Intermediate HIVES Verified 05/12/17 10:52 meperidine HCl * Allergy Intermediate Unknown Verified 05/12/17 10:52 [From Demerol] Home Medications: Home Medication List Medication Instructions Recorded Confirmed Last Taken Type Escitalopram [Lexapro] 1 tab PO DAILY 05/07/18 06/21/18 Unknown History Amiodarone [Cordarone] 200 mg PO DAILY tab 06/04/18 06/21/18 Unknown Rx Esomeprazole [Nexium] 40 mg PO DAILY cap 06/04/18 06/21/18 Unknown Rx Furosemide [Lasix] 40 mg PO BID 30 Days #60 tab 06/04/18 06/21/18 Unknown Rx Metoprolol [Lopressor] 25 mg PO Q12H tab 06/04/18 06/21/18 Unknown Rx Potassium Chloride E.r. [Klor-Con] 40 meq PO DAILY tab 06/04/18 06/21/18 Unknown Rx - History of Present Illness-Resp Nature of Presenting Problem: Pt is a 78 y/o M presents to the ED with SOB that began prior to arrival. The daughter was presents with pt at home and she reports he o2 SAT at home dropped into the the 60's when she called EMS. Quality of Pain: reports: none Severity in ED: reports: mild Onset/Duration: reports: just prior to arrival Timing: reports: still present, improving (on a non rebreather) Cough Quality/Degree: reports: no cough Current Respiratory Medication Therapy: Initiated see nurses note Modifying Factors: improves with: nothing Associated Symptoms: reports: shortness of breath. denies: cough, facial pain, fever/chills, flu-like symptoms, heart racing, wheezing Similar Symptoms Previously?: No Recently seen or treated by another doctor?: No Review of Systems - Adult - REVIEW OF SYSTEMS - ADULT Constitutional: denies: chills, fever Eyes: reports: no symptoms reported Ears, Nose, Mouth & Throat: reports: no symptoms reported Cardiovascular: denies: chest pain, edema, palpitations Respiratory: denies: cough, shortness of breath Gastrointestinal: denies: abdominal pain, nausea, vomiting Genitourinary: denies: dysuria, discharge Musculoskeletal: denies: back pain, neck pain Integumentary: reports: no symptoms reported Neurological: denies: dizziness/vertigo, headache/migraines Psychiatric: denies: anxiety, depression Endocrine: reports: no symptoms reported Hematologic/Lymphatic: reports: no symptoms reported Allergic/Immunologic: reports: no symptoms reported All Other Systems: Reviewed and Negative Past History - Adult - PAST MEDICAL HISTORY-ADULT Review of Records: reports: Old Records Reviewed, Nursing Assessment Review, Medications Reviewed Major Childhood Illnesses: reports: denies history Cardiovascular: reports: blood clots, CAD, HTN, hyperlipidemia Respiratory: reports: cancer Gastrointestinal: reports: denies history Obstetrical/Gynecological: reports: denies history Genitourinary: reports: denies history Musculoskeletal: reports: denies history Neurological: reports: CVA Endocrine/Immune: reports: Diabetes Other Conditions: reports: other - PRIOR SURGERIES/PROCEDURES Surgical/Procedure History: reports: CABG - IMMUNIZATION STATUS Childhood Immunizations: See Nurse Assessment Flu Vaccine: See Nurse Assessment - FAMILY HISTORY Family History: reviewed, not pertinent - SOCIAL HISTORY Smoking: non-smoker Living Situation: family Physical Exam-General - PHYSICAL EXAM-ADULT Initial Vital Signs Reviewed: Yes - CONSTITUTIONAL General Appearance: alert, no apparent distress - EYES Eyes: PERRL/EOMI, pink conjunctivae - HEAD, EARS, NOSE, MOUTH & THROAT HENMT: moist mucous membranes, normal ENT inspection, pharynx normal - NECK Neck: non-tender, full range of motion, supple, normal inspection - RESPIRATORY Respiratory: no pleuratic chest pain, no respiratory distress, no accessory muscle use, decreased breath sounds (on the left, right is normal) - CARDIOVASCULAR Cardiovascular: normal peripheral pulses, regular rate, rhythm, other (Mid sternum CABG scar) - GASTROINTESTINAL (ABDOMEN) Abdominal Exam: normal bowel sounds, non tender, soft - MUSCULOSKELETAL Back Exam: normal inspection, no CVA tenderness, no vertebral tenderness Extremity: normal range of motion, non-tender, normal gait, normal inspection, pedal edema (mild pitting edema) - SKIN Integumentary: normal color, normal turgor, warm/dry - NEUROLOGIC Neurologic: grossly normal, no motor/sensory deficits - PSYCHIATRIC Psych/Mental Status: normal mood/affect, normal thought content, normal thought process, oriented x 3 Progress - PLAN OF CARE/RESULTS Progress/Plan/Lab Results: Vital Signs - 8 hr 06/21/18 17:58 06/21/18 17:59 06/21/18 18:00 Temperature Pulse Rate 62 72 Respiratory Rate 12 20 Blood Pressure 155/56 O2 Sat by Pulse Oximetry 99 99 98 06/21/18 18:04 06/21/18 18:10 06/21/18 18:20 Temperature 97.6 F Pulse Rate 62 63 64 Respiratory Rate 13 19 20 Blood Pressure 155/56 O2 Sat by Pulse Oximetry 100 100 100 06/21/18 18:30 06/21/18 18:40 06/21/18 18:50 Temperature Pulse Rate 76 62 61 Respiratory Rate 21 23 14 Blood Pressure O2 Sat by Pulse Oximetry 100 100 100 06/21/18 19:00 06/21/18 19:10 06/21/18 19:20 Temperature Pulse Rate 58 L 60 57 L Respiratory Rate 26 H 19 23 Blood Pressure O2 Sat by Pulse Oximetry 100 100 100 06/21/18 19:30 06/21/18 19:40 06/21/18 19:50 Temperature Pulse Rate 57 L 59 L 57 L Respiratory Rate 24 21 20 Blood Pressure O2 Sat by Pulse Oximetry 100 100 100 06/21/18 20:00 06/21/18 20:10 06/21/18 20:20 Temperature Pulse Rate 58 L 56 L 56 L Respiratory Rate 19 18 Blood Pressure O2 Sat by Pulse Oximetry 100 100 100 06/21/18 20:30 06/21/18 20:40 06/21/18 20:50 Temperature Pulse Rate 56 L 56 L 56 L Respiratory Rate 12 20 21 Blood Pressure O2 Sat by Pulse Oximetry 100 100 100 Laboratory Results - last 24 hr 06/21/18 06/21/18 06/21/18 18:46 19:24 19:24 WBC 9.89 RBC 5.04 Hgb 9.4 L Hct 34.5 L MCV 68.5 L MCH 18.7 L MCHC 27.2 L RDW Std Deviation 20.6 H Plt Count 355 MPV 9.3 Immature Gran % (Auto) 0.4 Neut % (Auto) 71.4 Lymph % (Auto) 18.1 L Kane % (Auto) 8.2 Eos % (Auto) 1.3 Baso % (Auto) 0.6 Immature Gran # (Auto) 0.04 Neut # (Auto) 7.06 H Lymph # (Auto) 1.79 Kane # (Auto) 0.81 H Eos # (Auto) 0.13 Baso # (Auto) 0.06 PT INR PTT (Actin FS) Specimen Type ARTERIAL Sample Site R RADIAL pH 7.46 H pCO2 50 H pO2 139 H HCO3 33.2 H Base Excess 10.6 H Oxyhemoglobin 96.8 ABG O2 Sat (Calculated) 12.0 L ABG O2 Saturation 99.9 ABG Carboxyhemoglobin 2.50 ABG Methemoglobin 0.6 Km Test YES A-a O2 Difference 512.0 Total Hemoglobin 8.6 L Lactate 0.60 Liter Flow 15.0 Blood Gas Modality NRB FiO2 % 100.0 Sodium 133 L Potassium 4.4 Chloride 93 L Carbon Dioxide 31 Anion Gap 9 BUN 18 Creatinine 0.9 Estimated GFR/1.73 m2 > 60 BUN/Creatinine Ratio 20 Glucose 121 H Calculated Osmolality 270 Calcium 8.2 L Total Bilirubin 0.17 L AST 10 ALT < 5 L Alkaline Phosphatase 87 Creatine Kinase 18 L Troponin T Yuo-F-Owrezekllhe Pept Total Protein 5.8 L Albumin 2.5 L Globulin 3.3 Albumin/Globulin Ratio 0.8 Plasma Lactate 06/21/18 06/21/18 06/21/18 19:24 19:24 19:24 WBC RBC Hgb Hct MCV MCH MCHC RDW Std Deviation Plt Count MPV Immature Gran % (Auto) Neut % (Auto) Lymph % (Auto) Kane % (Auto) Eos % (Auto) Baso % (Auto) Immature Gran # (Auto) Neut # (Auto) Lymph # (Auto) Kane # (Auto) Eos # (Auto) Baso # (Auto) PT INR PTT (Actin FS) Specimen Type Sample Site pH pCO2 pO2 HCO3 Base Excess Oxyhemoglobin ABG O2 Sat (Calculated) ABG O2 Saturation ABG Carboxyhemoglobin ABG Methemoglobin Km Test A-a O2 Difference Total Hemoglobin Lactate Liter Flow Blood Gas Modality FiO2 % Sodium Potassium Chloride Carbon Dioxide Anion Gap BUN Creatinine Estimated GFR/1.73 m2 BUN/Creatinine Ratio Glucose Calculated Osmolality Calcium Total Bilirubin AST ALT Alkaline Phosphatase Creatine Kinase Troponin T < 0.010 Yvb-S-Mvpydnnawpl Pept 2823 H Total Protein Albumin Globulin Albumin/Globulin Ratio Plasma Lactate 1.4 06/21/18 20:07 WBC RBC Hgb Hct MCV MCH MCHC RDW Std Deviation Plt Count MPV Immature Gran % (Auto) Neut % (Auto) Lymph % (Auto) Kane % (Auto) Eos % (Auto) Baso % (Auto) Immature Gran # (Auto) Neut # (Auto) Lymph # (Auto) Kane # (Auto) Eos # (Auto) Baso # (Auto) PT 13.2 INR 0.93 PTT (Actin FS) 34.3 Specimen Type Sample Site pH pCO2 pO2 HCO3 Base Excess Oxyhemoglobin ABG O2 Sat (Calculated) ABG O2 Saturation ABG Carboxyhemoglobin ABG Methemoglobin Km Test A-a O2 Difference Total Hemoglobin Lactate Liter Flow Blood Gas Modality FiO2 % Sodium Potassium Chloride Carbon Dioxide Anion Gap BUN Creatinine Estimated GFR/1.73 m2 BUN/Creatinine Ratio Glucose Calculated Osmolality Calcium Total Bilirubin AST ALT Alkaline Phosphatase Creatine Kinase Troponin T Fkf-D-Avaqvsnglrr Pept Total Protein Albumin Globulin Albumin/Globulin Ratio Plasma Lactate Orders Category Date Time Status Cardiac Monitoring DIRECTED Care 06/21/18 18:47 Active Oxygen Therapy- ED Nursing DIRECTED Care 06/21/18 18:47 Active Saline Loc NOW Care 06/21/18 18:47 Active CHEST-PORTABLE [RAD] Stat Exams 06/21/18 18:46 Completed CTA [CT ANGIOGRM PULMONARY ARTERIES] [CT] Stat Exams 06/21/18 20:57 Completed ABG [RESP] Routine Lab 06/21/18 18:46 Completed CBC WITH ELECTRONIC DIFF [HEME] Stat Lab 06/21/18 19:24 Completed CK PROFILE [SP CHEM] Stat Lab 06/21/18 19:24 Completed COMPREHENSIVE METABOLIC PANEL [CHEM] Stat Lab 06/21/18 19:24 Completed LACTATE, PLASMA [CHEM] Stat Lab 06/21/18 19:24 Completed PRO B-NATRIURETIC PEPTIDE Stat Lab 06/21/18 19:24 Completed PROTIME WITH INR [COAG] Stat Lab 06/21/18 20:07 Completed PTT [COAG] Stat Lab 06/21/18 20:07 Completed TROPONIN T Stat Lab 06/21/18 19:24 Completed Enoxaparin [Lovenox] Med 06/21/18 22:30 Active 80 mg SUBQ Q12H Furosemide [Lasix] Med 06/21/18 20:52 Discontinued 80 mg IV NOW ONE CP/SOB/Palp >45 yrs of Age Stat Oth 06/21/18 18:46 Ordered Generalized Adult Illness >60 Stat Oth 06/21/18 18:46 Ordered EKG [EKG] Stat Ther 06/21/18 18:47 Ordered Transfer/Admit Order [TRANSFER] Routine Transfer 06/21/18 22:54 Ordered Result Diagrams: 06/21/18 19:24 06/21/18 19:24 - EKG 1 Time of EKG reading by physician:: 18:09 EKG Read and Signed by:: Sergo Craig EKG Interpretation (*Must complete 3 of following elements*): Abnormal Rate: 62 Rhythm: Sinus with 1st av BLOCK [place]: left QRS: LBB Departure - Departure Date of Disposition Decision: 06/21/18 Time of Disposition Decision: 23:00 DIAGNOSIS: Pulmonary edema, Pleural effusion, left Disposition: ADMITTED INPATIENT 09 Certified Medical Emergency: Emergent Condition: Stable - Critical Care Note This patient required my direct & personal management of CC.: No Attestation - Physician/ JOHANN Attestation Patient care was provided by Advanced Practice Provider:: No The physician spent face to face time with patient:: Yes Advanced Practice Provider documentation review:: Supervising physician onsite and consulted in the evaluation and care of this patient. The physician did have a face to face encounter with the patient. This chart was documented by the indicated scribe, (Joshua Shipman Scribe) and accurately reflects the services I performed and decisions made by me, Daina Villatoro MD, as attested by the provider's signature.
[2018-06-22] MEDS: LOVENOX SUBQ SCH ×3 (00:50→21:55)
--- NOTE | 2018-06-22 01:30 | HISTORY AND PHYSICAL ---
PRIMARY CARE PHYSICIAN: Dr. Kanu Craig. CHIEF COMPLAINT: Shortness of breath x1 day. HISTORY OF PRESENTING ILLNESS: The patient is a 78-year-old male with a history of coronary disease lung cancer, stroke, DVT and atrial fibrillation who had presented to emergency department with a 1-day history of worsening shortness of breath. The patient states that he was having trouble breathing. He was evaluated in the emergency department, he had imaging done which did show a pulmonary thromboembolism. Due to these findings he will require admission for further management. At the time of my examination he had denied any headache, fever, chills, chest pain, hemoptysis or any weight changes, but complained of shortness of breath. PAST MEDICAL HISTORY: Includes coronary artery disease, lung cancer, stroke, diabetes mellitus type 2, atrial fibrillation, hyperlipidemia, hypertension, DVT. PAST SURGICAL HISTORY: Coronary bypass. ALLERGIES: Demerol, lisinopril. CURRENT MEDICATIONS: Include amiodarone 200 mg p.o. daily, Lexapro 10 mg p.o. daily, Nexium 40 mg p.o. daily, Lasix 40 mg p.o. b.i.d., metoprolol 25 mg p.o. q.12 hours, potassium 40 mEq p.o. daily. SOCIAL HISTORY: No history of smoking, alcohol or illicit drug use. FAMILY HISTORY: No history of coronary disease. REVIEW OF SYSTEMS: Fourteen point review of systems is as in HPI. Other systems negative. PHYSICAL EXAMINATION: GENERAL: Cooperative friendly male. He is resting comfortably now. VITAL SIGNS: Temperature 97.6 degrees, pulse 62, respiration 20, blood pressure 155/56. HEENT: Atraumatic, normocephalic. Extraocular movements intact. PERRLA. NECK: No masses. CHEST: Rhonchi. CARDIOVASCULAR: Irregular. ABDOMEN: Soft. Positive bowel sounds. EXTREMITIES: Trace edema. NEUROLOGIC: He is awake, alert and oriented x3. GENITOURINARY: No bladder distention. SKIN: Warm. LABORATORIES AND STUDIES: WBCs is 9.89, hemoglobin 9.4, hematocrit 34.5, platelets 355,000. Sodium 133, potassium 4.4, chloride 93, CO2 is 31, BUN is 18, creatinine is 0.9, glucose is 129. CT angiogram shows pulmonary emboli most pronounced on the right upper lobe. ASSESSMENT: This is a 78-year-old male with a history of coronary disease, lung cancer, atrial fibrillation and deep venous thrombosis, who had presented to the emergency department with a 1- day history of sudden onset of shortness of breath. The patient was evaluated in the emergency department and he had imaging done which did show pulmonary thromboembolism, and due to these findings he will require admission for further management. 1. Acute pulmonary thromboembolism. 2. Atrial fibrillation. 3. Diabetes mellitus type 2. 4. Hypertension. PLAN: 1. We will admit patient to [facility]. 2. We will start the patient on Lovenox. 3. I discussed with the patient that he will discuss with Dr. Craig regarding which oral anticoagulation to start in the morning. 4. Continue to monitor the patient on telemetry and resume his antiarrhythmic agent. 5. We will put the patient on glycemic protocol with sliding scale insulin regimen. 6. We will monitor blood pressure and resume antihypertensive agent. 7. Continue with DVT prophylaxis with Lovenox. 8. We will continue to follow, reassess and make further recommendation based on the patient's clinical course. cc: MD Km David MD
[2018-06-22] MEDS ORDERED: LOPRESSOR PO SCH ×2 (06:23→09:45)
[2018-06-22] MEDS: HUMULIN R SUBQ SCH ×4 (07:00→21:55)
[2018-06-22 07:08] LABS: BASO# 0.05 X1000 (0.0-0.2); BASO% 0.6 % (0.0-0.8); EOS# 0.07 X1000 (0.0-0.7); EOS% 0.8 % (0.0-10.0); HEMATOCRIT 34.4 % (42.0-52.0); HEMOGLOBIN 9.2 g/dL (14.0-18.0); IMM GRAN# 0.04 X1000 (0.0-0.04); IMM GRAN% 0.5 % (0.0-0.5); LYMPH# 1.78 X1000 (1.2-3.4); LYMPH% 20.1 % (20.5-51.1); MCH 18.3 PG (27-31); MCHC 26.7 g/dL (33-37); MCV 68.4 FL (81-99); MONO# 0.75 X1000 (0.11-0.59); MONO% 8.5 % (1.7-9.3); NEUT# 6.16 X1000 (1.4-6.5); NEUT% 69.5 % (42.2-75.2); PLT 397 X1000 (130-400); RBC 5.03 XMIL (4.7-6.1); RDW 20.4 % (11.5-14.5); WBC 8.85 X1000 (4.8-10.8)
[2018-06-22 07:27] LABS: ANISOCYTOSIS 2+; BANDS 2 % (0-1); HYPOCHROM 2+; LYMPHS 22 % (21-51); MICROCYTOSIS 3+; MONO 4 % (1-9); POIKILOCYTOSIS 1+; SEGS 72 % (42-75)
--- NOTE | 2018-06-22 07:34 | EKG Report ---
Test Performed on : 06/21/2018 6:09:11 PM Test Reason : sob Blood Pressure : / mmHG Vent. Rate : 062 BPM Atrial Rate : 062 BPM P-R Int : 250 ms QRS Dur : 150 ms QT Int : 468 ms P-R-T Axes : 004 -36 092 degrees QTc Int : 475 ms Sinus rhythm. with 1st degree AV block. Left axis deviation Left bundle branch block Abnormal ECG When compared with ECG of 18-MAY-2018 06:42, T wave inversion less evident in Anterolateral leads QT has shortened Unconfirmed Result
[2018-06-22] MEDS: PRILOSEC PO SCH (07:55)
[2018-06-22] MEDS: CORDARONE PO SCH ×2 (09:00→10:55)
--- NOTE | 2018-06-22 10:27 | PROGRESS NOTE ---
DATE: 06/22/2018 SUBJECTIVE: Yesterday, he was brought in to the emergency room for shortness of breath. This is a 78-year-old male with history of coronary artery disease, distant history of lung cancer in the right lung, and was last admitted here for left hemothorax. He has had a history of stroke. We had taken off his anticoagulation because of hemothorax, required a chest tube, prolonged drainage, history of DVT, history of atrial fibrillation. He was evaluated in the emergency room. Imaging done, which did show pulmonary thromboembolus. He will require admission. We are going to have to consider what we are going to do for anticoagulation given his history of pneumothorax. PAST MEDICAL HISTORY: Includes coronary artery disease, lung cancer in the right lung, I think it was stage IIB, stroke, diabetes mellitus type 2, atrial fibrillation, hyperlipidemia, hypertension, DVT, history of coronary bypass. ALLERGIES: Demerol and lisinopril. PHYSICAL EXAMINATION: General: In the emergency room, he was awake and alert, breathing comfortably. Vital Signs: Temp afebrile, pulse 74, respirations 26, blood pressure 103/46. HEENT: Pupils are equal and round. Lungs: Clear in all lung wilkins. Cardiovascular: Regular rhythm and rate without murmur or S3. Abdomen: Soft. Skin: Warm and dry. IMAGING AND LABORATORY DATA: Lab reviewed. White count 8850, hematocrit 34, platelet count 397,000. Sodium 133, potassium 4.4, chloride 93, bicarb 31, BUN 18, creatinine 0.9. ProBNP was 2823. Albumin was 2.5. ProTime is 13.2, with an INR of 0.93, PTT was 34. Blood gases on arrival showed pH of 7.46, pCO2 of 50, PO2 of 139, O2 saturation was 96% and that was on 100% FiO2. Chest x-ray: Pleural effusions, pulmonary edema. Pulmonary arteriogram: Pulmonary embolus most pronounced in the right upper lobe. PLAN: I will ask Pulmonary, Dr. Trevizo as well, familiar with him, and see if we need to put in an inferior vena cava filter and his thoughts on anticoagulant given the fact that he just recently had a hemothorax on the left side. We will continue the amiodarone. His heart rate seems to be in the 50s right now. Will continue his Lexapro and Nexium. He is getting Lasix 40 mg p.o. twice a day, Lopressor 25 mg every 12 hours. I may cut down his Lopressor to 12.5 mg twice a day given his bradycardia, and then he is getting Klor-Con 40 mEq daily. cc: Km Palencia MD
--- NOTE | 2018-06-22 10:53 | EKG Report ---
Test Performed on : 06/22/2018 08:59:46 AM Test Reason : ED. NO EKG ORDER FOR MUSE Blood Pressure : / mmHG Vent. Rate : 050 BPM Atrial Rate : 050 BPM P-R Int : 254 ms QRS Dur : 166 ms QT Int : 522 ms P-R-T Axes : 017 -43 084 degrees QTc Int : 475 ms Sinus bradycardia. with 1st degree AV block. with premature atrial complexes. Left axis deviation Left bundle branch block Abnormal ECG When compared with ECG of 21-JUN-2018 18:09, (Unconfirmed) premature atrial complexes. are now present Unconfirmed Result
[2018-06-22] MEDS: LEXAPRO PO SCH (10:55)
[2018-06-22] MEDS: LASIX PO SCH ×2 (10:55→21:55)
--- NOTE | 2018-06-22 20:48 | PULMONOLOGY CONSULTATION ---
DATE: 06/22/2018 REASON FOR CONSULTATION: Pulmonary embolus. HISTORY OF PRESENT ILLNESS: Mr. Benitez is a 78-year-old white male, status post radiation treatment for a stage IIA lung cancer in 2014, without history of recurrence. The patient has history of atrial flutter, stroke, diabetes mellitus, coronary artery disease with prior bypass grafting complicated by pleural effusions, with a prolonged hospital course from 05/07/2018 until 06/04/2018. The patient presented with a large left-sided pleural effusion which would not drain with thoracentesis. The patient underwent a mini-thoracotomy for chest tube placement by Dr. Sifuentes, and a hemothorax was identified. Pleural lining was very thick. Pathology was reactive, but negative for malignancy. He did eventually recover and was discharged home for home rehabilitation and physical therapy. The patient declined inpatient rehabilitation. The patient developed acute decrease in oxygen saturation and presented to the emergency room. CT scan of the thorax was performed which revealed a slight increase in left-sided effusion, but pulmonary emboli identified in the right upper lobe. The patient is awake and alert. He is without new complaint. PAST MEDICAL HISTORY: 1. Hemothorax, while on Eliquis, as per above. 2. Atrial flutter. 3. History of stroke. 4. History of lung cancer, as per above. 5. Coronary artery disease, status post bypass grafting. 6. Diabetes mellitus. 7. Hypertension. 8. Dyslipidemia. 9. History of deep vein thrombosis. SOCIAL HISTORY: The patient is a never smoker. No alcohol use. FAMILY HISTORY: Noncontributory to current presentation. REVIEW OF SYSTEMS: As noted in the HPI, but is otherwise negative. PHYSICAL EXAMINATION: General: Reveals a well developed, well nourished, white male who appears overall better than at his recent discharge. He is without complaints. HEENT: Pupils are equal and reactive. Oropharynx is clear. Neck: Supple. Chest: Reveals decreased breath sounds in both lung bases. Cardiac: S1, S2. Abdomen: Soft and without hepatosplenomegaly. Extremities: Without edema. LABORATORIES: Pulmonary angiogram as per above. Chest x-ray with no significant change. IMPRESSION: Complicated, 78-year-old white male with recent hemothorax, who now presents with pulmonary embolism. The patient has other reasons for anticoagulation, including prior stroke and coronary artery disease. A filter would not protect him from additional vascular events. He might need a filter if he has significant clot burden, because he will not be a good candidate for thrombolytics. Patient diagnoses include pleural effusions, hypoxemic respiratory failure, dyspnea on exertion, severe protein calorie malnutrition, and severe physical debilitation. RECOMMENDATIONS: 1. Continue Lovenox. 2. Would recommend transitioning patient to Coumadin, so that an INR can be followed to help ensure he is not under or over anticoagulated. 3. Await results of venous Dopplers. 4. Family aware that there is no good option for a patient who needs to be on anticoagulation and not on anticoagulation at the same time. cc: MD Km Harrison MD MTDJulio
[2018-06-22] MEDS: LOPRESSOR PO SCH (21:54)
[2018-06-23] MEDS: PRILOSEC PO SCH (06:51)
[2018-06-23] MEDS: HUMULIN R SUBQ SCH ×4 (06:51→21:04)
[2018-06-23] MEDS: LOPRESSOR PO SCH ×2 (08:27→21:06)
[2018-06-23] MEDS: LEXAPRO PO SCH (08:27)
[2018-06-23] MEDS: LOVENOX SUBQ SCH ×2 (08:28→21:06)
[2018-06-23] MEDS: LASIX PO SCH ×2 (08:28→21:06)
[2018-06-23] MEDS: CORDARONE PO SCH (08:28)
--- NOTE | 2018-06-23 08:45 | PROGRESS NOTE ---
DATE: 06/23/2018 SUBJECTIVE: Mr. Benitez has had a pretty good night breathing comfortably. OBJECTIVE: Temperature 98 degrees, pulse 55, respirations 20, and blood pressure 120/40. Pupils are equal and round. Lungs are clear in all lung wilkins. Cardiovascular exam with regular rhythm and rate without murmur or S3. Abdomen is soft. Skin is warm and dry. Blood sugar 130, 111 and 101. ASSESSMENT AND PLAN: 1. Recent hemothorax, and now presents with pulmonary embolism. The patient has other reasons for anticoagulation including prior stroke, coronary artery disease, and a filter would not protect him from these events. Dr. Trevizo feels it will not be of any benefit. He might need a filter if he has significant clot burden, but at the present time we will transfer the patient to Coumadin. We will continue Lovenox. 2. Recent hemothorax. He seems to be doing better from that standpoint. We will repeat a chest x-ray today. 3. I am going to wait a couple of days before we start pushing for physical therapy again. Overall, he has done better since discharge. His appetite seems to be good. 4. Diabetes mellitus type 2. Follow sugars. 5. Atrial fibrillation which is another reason for anticoagulation. 6. Hypertension. 7. History of I think stage IIB lung cancer in his right lung. No sign of recurrence. REVIEW OF ORDERS: He is on Cordarone 200 mg a day, Lexapro 10 mg a day, Lopressor 12.5 mg twice a day, and getting his Lovenox 80 mg subcu q.12. I will go ahead and start him on Coumadin, and I will just start him at 10 mg for the first couple nights at bedtime. cc: Km Palencia MD
--- NOTE | 2018-06-23 09:25 | Diag Imaging Result Doc PS360 ---
CHEST-PORTABLE - 06/23/2018 INDICATION: copd, pleural effusions COMPARISON: 06/21/2018 FINDINGS: Stable CABG changes. There is a device projecting over the anterior left chest which may be a cardiac monitoring device. Stable significant cardiomegaly. Lung volumes are improved. Stable moderate left and small right pleural effusion. Grossly stable diffuse interstitial infiltrates compatible with pulmonary edema. IMPRESSION: Improved lung volumes. Otherwise no significant change from prior. Electronically signed by Tony Mccollum 06/23/2018 9:23 AM
[2018-06-23] MEDS: COUMADIN PO SCH (21:06)
--- NOTE | 2018-06-23 21:52 | PULMONOLOGY PROGRESS NOTE ---
DATE: 06/23/2018 SUBJECTIVE: The patient is awake, alert, and conversant. He reports his breathing has improved. He indicates that they looked for clots in his legs today, and none were seen; but I have not yet seen that report. OBJECTIVE: Vital Signs: The patient has been afebrile for the last 24 hours. Blood pressure 126/50, heart rate 52, respiratory rate 15, oxygen saturation 100% on 4 L per nasal cannula. HEENT: Pupils are equal and reactive. Oropharynx is clear. Neck: Supple. Chest: Reveals good air entry anteriorly with decreased breath sounds in the bases. Cardiac: S1, S2. Abdomen: Soft and without hepatosplenomegaly. Extremities: Without edema. LABORATORY DATA: No new chemistries or CBC. Venous Dopplers are pending. IMPRESSION: 1. A 78-year-old with pulmonary emboli. 2. Chronic hypoxemic respiratory failure. 3. Pleural effusions. 4. Protein-calorie malnutrition. 5. History of hemothorax. RECOMMENDATIONS: 1. Continue current anticoagulation. 2. Transition to Coumadin to begin this evening with some overlap with Lovenox. 3. Await venous Doppler reports. 4. If he does not have significant burden, would recommend beginning PT. If he has significant burden, would delay PT for 2 to 3 days. cc: MD Km Harrison MD
[2018-06-24 05:37] LABS: INR 1.03; PROTIME 14.3 Seconds (11.0-16.0)
[2018-06-24] MEDS: PRILOSEC PO SCH (06:23)
[2018-06-24] MEDS: HUMULIN R SUBQ SCH ×4 (06:23→23:10)
[2018-06-24] MEDS: LASIX PO SCH ×2 (08:47→23:10)
[2018-06-24] MEDS: LOPRESSOR PO SCH ×2 (08:47→23:10)
[2018-06-24] MEDS: LOVENOX SUBQ SCH ×2 (08:47→23:10)
[2018-06-24] MEDS: CORDARONE PO SCH (08:47)
[2018-06-24] MEDS: LEXAPRO PO SCH (08:47)
--- NOTE | 2018-06-24 09:34 | PROGRESS NOTE ---
DATE: 06/24/2018 SUBJECTIVE: Mr. Benitez is feeling better. His breathing is comfortable. OBJECTIVE: He is awake and alert, seems to be oriented x3. He has not had any cough or fever. Temperature is 97.4 degrees, pulse 57, respirations 18, blood pressure 123/47. Pupils are equal and round. Lungs are clear anterior lateral and posterior. CVP is less than 6 cm. Cardiovascular exam: Regular rhythm and rate without murmur or S3. Abdomen is soft. Skin is warm and dry. Urine output is 600 mL. Blood sugar 101, 113 and 124. ASSESSMENT AND PLAN: 1. A 78 year old with pulmonary emboli. Recently had hemothorax with a chest tube in his left lung. He seems to be tolerating anticoagulant well. He seems clinically to be improving. 2. Chronic hypoxemic respiratory failure, underlying chronic obstructive pulmonary disease. 3. Pleural effusions which have improved. 4. Protein calorie malnutrition. Encourage oral intake. 5. Recent history of hemothorax. 6. History of lung cancer in the right lung, status post radiation therapy. No sign of recurrence at this point. Hope to start physical therapy tomorrow, but clinically he seems to be improving. We will follow his pro time. I have went ahead and started him on Coumadin 10 mg at bedtime. His pro time this morning was 14 with an INR 1.03 and his blood sugars look well controlled. His hematocrit is stable at 34, hemoglobin 9.2, white count 8850. Review of his orders: He is on Coumadin 10 mg at bedtime, amiodarone 200 mg a day. He is getting Lovenox 1 mg/kg subcutaneous q. 12 hours and that is 80 mg subcutaneous q. 12 hours, Lexapro 10 mg a day, Lasix 40 mg p.o. b.i.d., Lopressor 12.5 mg q. 12 hours and Prilosec 40 mg a day. His chest x-ray from yesterday improved in lung volumes. He has CABG changes. His cardiac monitoring device was visible, but overall he has a small right pleural effusion, moderate left pleural effusion. cc: Km Palencia MD
--- NOTE | 2018-06-24 18:04 | Extremity Venous Study ---
PROCEDURE NAME: Venous U/S Bilateral Legs - 06/22/2018 STUDY: Bilateral lower extremity venous duplex. REFERRING PHYSICIAN: Km Palencia MD. READING PHYSICIAN: Sukhwinder Saavedra MD. TONGUE LINING STITCHER: Shantell Ramos RVT. INDICATION: Pulmonary embolus. There is comparison study on 03/31/2017. FINDINGS: The deep and superficial veins of the lower extremities were imaged bilaterally. They are compressible, patent and without thrombus. There is reflux in the right greater saphenous vein for 3.9 seconds, the left common femoral vein and the left superficial femoral vein for 2.7 seconds. INTERPRETATION: There is resolution of the previous DVT in the right peroneal vein and resolution of the SVT of the left greater saphenous vein. All other veins also are compressible and patent without thrombus. There is reflux in the superficial and deep veins as described above. cc: MD Km Orellana MD
--- NOTE | 2018-06-24 22:52 | PULMONOLOGY PROGRESS NOTE ---
DATE: 06/24/2018 SUBJECTIVE: The patient reports he has had a pretty good day. He denies shortness of breath. He has a poor appetite. OBJECTIVE: Vital Signs: The patient has been afebrile for the last 24 hours. Blood pressure 134/50, heart rate 62, respiratory rate 16, oxygen saturation 95% on 3 L per nasal cannula. HEENT: Pupils are equal and reactive. Oropharynx appears clear. Neck: Supple. Chest: Reveals decreased breath sounds both lung bases. Cardiac: S1, S2. Abdomen: Soft. Extremities: Without significant edema. LABORATORIES: Bilateral lower extremity venous duplex Doppler's performed 06/22/2018 revealed resolution of the previous DVT in the peroneal vein and resolution of the superficial thrombosis of the left greater saphenous vein. No evidence of acute or chronic deep vein thrombosis. INR is normal at 1.03. IMPRESSION: 1. A 78-year-old with pulmonary emboli. 2. Chronic hypoxemic respiratory failure. 3. Pleural effusions with history of hemothorax. 4. Protein calorie malnutrition. 5. Severe deconditioning. 6. No evidence of deep vein thrombosis. RECOMMENDATIONS: 1. Continue Lovenox and transition to Coumadin, as you are doing. 2. Initiate physical therapy tomorrow. The patient has no DVT so should not be at risk for ambulation. 3. Continue oxygen. 4. Encourage p.o. intake. cc: MD Km Harrison MD
[2018-06-24] MEDS: COUMADIN PO SCH (23:10)
[2018-06-25] MEDS: PRILOSEC PO SCH (05:55)
[2018-06-25 06:39] LABS: INR 1.97; PROTIME 23.9 Seconds (11.0-16.0)
[2018-06-25 06:45] LABS: BASO# 0.03 X1000 (0.0-0.2); BASO% 0.4 % (0.0-0.8); EOS# 0.07 X1000 (0.0-0.7); EOS% 0.8 % (0.0-10.0); HEMATOCRIT 32.3 % (42.0-52.0); HEMOGLOBIN 8.7 g/dL (14.0-18.0); LYMPH# 2.16 X1000 (1.2-3.4); LYMPH% 25.9 % (20.5-51.1); MCH 18.6 PG (27-31); MCHC 26.9 g/dL (33-37); MONO# 0.69 X1000 (0.11-0.59); MONO% 8.3 % (1.7-9.3); MPV 9.5 FL (7.4-10.4); NEUT# 5.38 X1000 (1.4-6.5); NEUT% 64.6 % (42.2-75.2); PLT 345 X1000 (130-400); RBC 4.68 XMIL (4.7-6.1); RDW 19.9 % (11.5-14.5); WBC 8.33 X1000 (4.8-10.8)
[2018-06-25 06:51] LABS: AGAP 8; ALB/GLOB RATIO 0.7; ALBUMIN 2.6 g/dL (3.5-5.0); ALKALINE PHOSPHATASE 77 U/L (32-122); BUN 15 mg/dL (8-22); CALCIUM 8.2 mg/dL (8.8-10.2); CHLORIDE 93 mmol/L (98-107); COSMO 279; CREATININE 0.7 mg/dL (0.7-1.2); ESTIMATED GFR > 60; GLUCOSE 116 mg/dL (70-104); GOT 8 U/L (10-34); GPT < 5 U/L (10-44); MAGNESIUM 1.9 mg/dL (1.5-2.7); PHOSPHORUS 3.1 mg/dL (2.7-4.5); POTASSIUM 3.6 mmol/L (3.5-5.1); SODIUM 139 mmol/L (136-145); TCO2 38 mmol/L (25-35); TOTAL BILIRUBIN < 0.15 mg/dL (0.20-1.00); TOTAL PROTEIN 6.3 g/dL (6.3-8.3)
[2018-06-25] MEDS: HUMULIN R SUBQ SCH ×4 (07:39→22:27)
[2018-06-25] MEDS: LASIX PO SCH ×2 (08:51→22:29)
[2018-06-25] MEDS: LEXAPRO PO SCH (08:51)
[2018-06-25] MEDS: LOVENOX SUBQ SCH ×2 (08:51→22:29)
[2018-06-25] MEDS: CORDARONE PO SCH (08:52)
[2018-06-25] MEDS: LOPRESSOR PO SCH ×2 (08:52→22:29)
--- NOTE | 2018-06-25 14:21 | PROGRESS NOTE ---
DATE: 06/25/2018 SUBJECTIVE: Mr. Benitez is breathing comfortably. He is still pretty weak, could not stand up or walk. Physical therapy began today. OBJECTIVE: HEENT and Neck: His pupils are equal. No distended neck veins. Lungs: Clear in all lung wilkins. Cardiovascular: Regular rhythm and rate without murmur or S3. Abdomen: Soft. Skin: Warm and dry. ASSESSMENT AND PLAN: A 78-year-old with pulmonary emboli, recent hemothorax with a chest tube in the left last month with pleural effusions. These seem to have improved. He is back on anticoagulant, and he is eating well, but very weak with severe deconditioning, so continue to pursue physical therapy. I am not sure he has any more inpatient rehab eligibility left, so we will have to continue to work and get him stronger to see if we can get him back to the house the first of the week. His prothrombin time is 23, so we will stop his Coumadin 10 mg and put him on 4 mg every night at bedtime. cc: Km Palencia MD
[2018-06-25] MEDS ORDERED: CALMOSEPTINE OINTMENT TOP PRN (17:28)
--- NOTE | 2018-06-25 17:38 | PULMONOLOGY PROGRESS NOTE ---
DATE: 06/25/2018 SUBJECTIVE: The patient is awake, alert, and conversant. Physical therapy came by to work with him today, and he reports he was "abstinent" and it is not clear if any physical therapy was performed. OBJECTIVE: Vital Signs: The patient has been afebrile for the last 24 hours. Blood pressure 120/41, heart rate 60, respiratory rate 18, oxygen saturation 95% on 2 L per nasal cannula. HEENT: Pupils are equal and reactive. Oropharynx is clear. Neck: Supple. Chest: Reveals decreased breath sounds to both lung bases. Cardiac: S1 and S2. Abdomen: Soft. Extremities: Reveal trace edema. LABORATORY DATA: Sodium 139, potassium 3.6, chloride 93, bicarbonate 38, BUN 15, creatinine 0.7. INR is elevated at 1.97. IMPRESSION: A 78-year-old with: 1. Pulmonary emboli. 2. Negative deep vein thrombosis on venous Doppler studies of the lower extremities. 3. Chronic hypoxemic respiratory failure. 4. Pleural effusions. 5. History of hemothorax. 6. Protein-calorie malnutrition. 7. Severe deconditioning. RECOMMENDATIONS: 1. Encourage the patient to participate with physical therapy. His prognosis is poor if he is not motivated to perform physical therapy. 2. Agree with discontinuing heparin given INR of almost 2. 3. Continue oxygen. 4. Encourage p.o. intake. 5. The patient should be ready for discharge soon. Rehab has been recommended in the past, but he has refused. cc: MD Km Harrison MD
[2018-06-25] MEDS ORDERED: COUMADIN PO SCH (21:00)
[2018-06-26 06:38] LABS: INR 3.69; PROTIME 39.1 Seconds (11.0-16.0)
[2018-06-26] MEDS: PRILOSEC PO SCH (06:39)
[2018-06-26] MEDS: HUMULIN R SUBQ SCH ×4 (08:15→21:00)
[2018-06-26] MEDS: CORDARONE PO SCH (10:47)
[2018-06-26] MEDS: LEXAPRO PO SCH (10:47)
[2018-06-26] MEDS: LASIX PO SCH ×2 (10:48→21:05)
[2018-06-26] MEDS: LOPRESSOR PO SCH ×2 (10:48→21:05)
[2018-06-26] MEDS: LOVENOX SUBQ SCH ×2 (10:48→21:05)
--- NOTE | 2018-06-26 12:00 | PROGRESS NOTE ---
DATE: 06/26/2018 SUBJECTIVE: Mr. Benitez is feeling better. He is a little stronger. Breathing comfortably. Remains afebrile. OBJECTIVE: Vital signs: Temperature 98.1 degrees, pulse 60, respirations 14, blood pressure 130/51. HEENT: Pupils are equal and round. Lungs: Clear in all lung wilkins. Cardiovascular: Regular rhythm and rate without murmur or S3. Abdomen: Soft. Skin: Warm and dry. Urine output was 2200 mL. ASSESSMENT AND PLAN: 1. Pulmonary emboli. He is getting Lovenox anticoagulation therapy. Have started back Coumadin. His protime was 39 so we will hold the Coumadin tonight and start it back at a lower dose. Would like to keep his INR around 2. 2. Status post chest tube for hemothorax on the left side about a month ago and he is doing well from that standpoint. Lungs sound clear. 3. Chronic obstructive pulmonary disease, chronic hypoxemic respiratory failure and bilateral effusions which he had a left hemothorax, required chest tube with drainage. Seems to be doing well from that standpoint. 4. Protein calorie malnutrition. He is doing better on his intake. 5. Severe deconditioning so continue physical therapy. His hope is that he can go home hopefully, the first of the week. cc: Km Palencia MD
[2018-06-27] MEDS: HUMULIN R SUBQ SCH ×4 (06:09→23:14)
[2018-06-27] MEDS: PRILOSEC PO SCH (06:10)
[2018-06-27 06:16] LABS: INR 4.23; PROTIME 43.5 Seconds (11.0-16.0)
[2018-06-27] MEDS: LOPRESSOR PO SCH ×2 (09:13→23:15)
[2018-06-27] MEDS: CORDARONE PO SCH (09:13)
[2018-06-27] MEDS: LEXAPRO PO SCH (09:13)
[2018-06-27] MEDS: LOVENOX SUBQ SCH (09:13)
[2018-06-27] MEDS: LASIX PO SCH ×2 (09:13→23:14)
[2018-06-27] MEDS ORDERED: DULCOLAX PR PRN (14:25)
--- NOTE | 2018-06-27 14:41 | PROGRESS NOTE ---
DATE: 06/27/2018 SUBJECTIVE: He is better, a little stronger. He wants something to help with his bowels. He is eating pretty good. His breathing is comfortable. OBJECTIVE: Vital Signs: Temp 98.4, pulse 56, respirations 16, blood pressure 132/55. HEENT: Pupils are equal and round. Lungs: Clear in all lung wilkins. Cardiovascular: Regular rhythm and rate without murmur or S3. Abdomen: Soft. Skin: Warm and dry. LABORATORY: Urine output is 2600 mL. Blood sugars 122, 111, 173. ASSESSMENT AND PLAN: 1. Pulmonary emboli. Getting Lovenox at treatment. We have started him on his Coumadin. His INR was 43, so we need to hold on the Coumadin. I will stop his Lovenox and we will reduce his Coumadin level. 2. History of left hemothorax. He had a chest tube for a while, so we will stop his Coumadin and stop his Lovenox. Let his pro time come down a little bit. He is improving clinically. 3. General weakness and deconditioning. Continue physical therapy. 4. His blood pressure volume status looks pretty good. 5. History of lung cancer on the right. I think it was stage IIIB. He has had radiation treatment to the right lung. No sign of recurrence. cc: Km Palencia MD
[2018-06-27] MEDS: MILK OF MAGNESIA PO SCH (15:48)
[2018-06-28 06:18] LABS: INR 3.55; PROTIME 37.9 Seconds (11.0-16.0)
[2018-06-28 06:19] LABS: BASO# 0.03 X1000 (0.0-0.2); BASO% 0.4 % (0.0-0.8); EOS# 0.11 X1000 (0.0-0.7); EOS% 1.5 % (0.0-10.0); HEMATOCRIT 30.4 % (42.0-52.0); HEMOGLOBIN 8.1 g/dL (14.0-18.0); IMM GRAN# 0.02 X1000 (0.0-0.04); IMM GRAN% 0.3 % (0.0-0.5); LYMPH# 1.62 X1000 (1.2-3.4); LYMPH% 21.6 % (20.5-51.1); MCH 18.5 PG (27-31); MCHC 26.6 g/dL (33-37); MCV 69.2 FL (81-99); MONO# 0.79 X1000 (0.11-0.59); MONO% 10.5 % (1.7-9.3); MPV 9.3 FL (7.4-10.4); NEUT# 4.94 X1000 (1.4-6.5); NEUT% 65.7 % (42.2-75.2); PLT 324 X1000 (130-400); RBC 4.39 XMIL (4.7-6.1); RDW 19.3 % (11.5-14.5); WBC 7.51 X1000 (4.8-10.8)
[2018-06-28] MEDS: PRILOSEC PO SCH (06:37)
[2018-06-28] MEDS: HUMULIN R SUBQ SCH ×2 (06:37→10:59)
[2018-06-28 06:44] LABS: AGAP 9; BUN 12 mg/dL (8-22); CALCIUM 8.4 mg/dL (8.8-10.2); CHLORIDE 95 mmol/L (98-107); COSMO 276; CREATININE 0.5 mg/dL (0.7-1.2); ESTIMATED GFR > 60; GLUCOSE 107 mg/dL (70-104); POTASSIUM 3.6 mmol/L (3.5-5.1); SODIUM 138 mmol/L (136-145); TCO2 34 mmol/L (25-35)
--- NOTE | 2018-06-28 07:22 | Diag Imaging Result Doc PS360 ---
CHEST-1 VIEW - 06/28/2018 INDICATION: SOB COMPARISON: 06/23/2018 FINDINGS: Stable surgical changes to the heart. Stable cardiomegaly and pulmonary vascular congestion. Stable small right and moderate left pleural effusions. Stable hazy interstitial infiltrates consistent with pulmonary edema. IMPRESSION: No change from prior. Electronically signed by Tony Mccollum 06/28/2018 7:20 AM
[2018-06-28 07:31] LABS: BANDS 6 % (0-1); LYMPHS 30 % (21-51); MONO 2 % (1-9); SEGS 62 % (42-75)
[2018-06-28] MEDS: LASIX PO SCH (10:53)
[2018-06-28] MEDS: CORDARONE PO SCH (10:53)
[2018-06-28] MEDS: LEXAPRO PO SCH (10:53)
[2018-06-28] MEDS: LOPRESSOR PO SCH (10:53)
[2018-06-28] MEDS: MILK OF MAGNESIA PO SCH (10:59)
--- NOTE | 2018-06-28 14:30 | DISCHARGE SUMMARY ---
ADMISSION DATE: 06/21/2018 DISCHARGE DATE: 06/28/2018 He presented with shortness of breath. He is a patient of mine a 78-year-old history of coronary artery disease and lung cancer in right lung stage IIIB which had radiation treatment, history of CVA, history of DVT and atrial fibrillation. Last in the hospital last month with shortness of breath and we found left pleural effusion which turned out to be a hemothorax. He required a chest tube and had chest tube for prolonged period time a week able to remove it and he has done well from that standpoint. Presented with shortness of breath. Denies fever or chills. On CT angiogram found pulmonary thromboembolism so we were forced to put him back on anticoagulant which had stopped when he had his hemothorax. He showed steady improvement. Tolerated the anticoagulant. His atrial fibrillation, rate was controlled blood sugars look good. Seemed to improve his appetite and he was eating well. Chest x-ray on 06/28 stable surgical changes in the heart, stable cardiomegaly and pulmonary vascular congestion, stable small right, moderate left pleural effusion, stable hazy interstitial infiltrates consistent with pulmonary edema. He was improved clinically breathing well. He wanted to go home. We had started physical therapy and he felt he wanted go home and continue home health so we will try and set that up for him. CURRENT MEDICATIONS: He is taking Cordarone 200 mg a day, Lexapro 10 mg a day, Lasix 40 mg twice a day, Lopressor 12.5 mg twice a day and Prilosec 40 mg a day. His anticoagulant I have him on Coumadin. I will give him 4 mg and start him at bedtime. He needs get his pro time checked once a week and we will watch. Right now his pro time was a little high at 37 and INR 3.5 so we will start him on 4 mg at bedtime he will start that tomorrow evening, get a pro time every week and kind of go from there this. We will get home health with physical therapy. He already has home O2. cc: Km Palencia MD
[2018-06-28 15:06] VITALS: BP 182/58
== END 2018-06-28 15:13 | disposition home health service (06) | DRG 175 ==
LOC: SUPCPDRO → ED 17:50 → EDIPHOLD 23:06 → SUATTDRO 23:06 → 3S 06-22 14:37 → 4N 06-24 17:49
PROVIDERS: ADMIT Emergency Medicine; ATTEND Emergency Medicine
CPT/HCPCS: 71010; 71045; 71275; 80048; 80053; 82550; 82805; 82948; 83605; 83735; 83880; 84100; 84484; 85025; 85610; 85730; 93005; 93970; 94761; 96372; 96374; 97162; 97530; 99285; A9270; J1650; J1940; Q9967; XXXXX

== ENCOUNTER 2018-08-22 22:34 | Inpatient (IN) ==
[2018-08-22] MEDS ORDERED: DUONEB (A & A) INH ONE (22:52)
[2018-08-22] MEDS ORDERED: SOLU-MEDROL IV ONE (22:52)
[2018-08-22 23:47] LABS: ALLEN TEST YES; BLOOD TYPE ARTERIAL; SAMPLE BLOOD
[2018-08-22 23:50] LABS: MODALITY CANNULA
[2018-08-22] MEDS ORDERED: ULTRAM PO ONE (23:59)
[2018-08-23 00:38] LABS: BE 4.1 mmoll (-3.0-3.0); HCO3-(ACT) 28.1 mmoll (20.0-26.0); O2(CT) 9.9 mL/dL (15.0-23.0); PCO2(98.6) 46 mmHg (35-45); THB 7.6 g/dL (11.5-17.4); pH(98.6) 7.41 (7.35-7.45)
[2018-08-23 00:41] LABS: PO2(98.6) 59 mmHg (60-100)
[2018-08-23 00:42] LABS: O2HB 91.9 % (95.0-99.0)
[2018-08-23 00:44] LABS: BASO# 0.05 X1000 (0.0-0.2); BASO% 0.3 % (0.0-0.8); EOS% 1.9 % (0.0-10.0); HEMATOCRIT 28.9 % (42.0-52.0); IMM GRAN# 0.04 X1000 (0.0-0.04); IMM GRAN% 0.2 % (0.0-0.5); LYMPH# 1.81 X1000 (1.2-3.4); LYMPH% 11.3 % (20.5-51.1); MCH 18.1 PG (27-31); MCHC 27.7 g/dL (33-37); MCV 65.5 FL (81-99); MONO# 1.03 X1000 (0.11-0.59); MONO% 6.4 % (1.7-9.3); NEUT# 12.85 X1000 (1.4-6.5); NEUT% 79.9 % (42.2-75.2); PLT 390 X1000 (130-400); RBC 4.41 XMIL (4.7-6.1); RDW 17.7 % (11.5-14.5); WBC 16.08 X1000 (4.8-10.8)
[2018-08-23] MEDS ORDERED: ROCEPHIN 1 GM in NS 50 ML IV ONE (00:56)
[2018-08-23] MEDS ORDERED: ZITHROMAX 500 MG/NS 500 MG/250 ML IVPB IV ONE (00:57)
--- NOTE | 2018-08-23 00:58 | PROVIDER DOCUMENTATION ---
This chart was entered by Luz Jones Scribe, acting as scribe for Almas Tran MD. HPI-Respiratory General - General Chief Complaint: Shortness of Breath Stated Complaint: sob Time Seen by Provider: 08/22/18 22:52 Source: patient, EMS Allergies/Adverse Reactions: Patient Allergies Allergy/AdvReac Type Severity Reaction Status Date / Time lisinopril Allergy Intermediate HIVES Verified 05/12/17 10:52 meperidine HCl * Allergy Intermediate Unknown Verified 05/12/17 10:52 [From Demerol] Home Medications: Home Medication List Medication Instructions Recorded Confirmed Last Taken Type Escitalopram [Lexapro] 1 tab PO DAILY 05/07/18 08/23/18 Unknown History Amiodarone [Cordarone] 200 mg PO DAILY tab 06/04/18 08/23/18 Unknown Rx Esomeprazole [Nexium] 40 mg PO DAILY cap 06/04/18 08/23/18 Unknown Rx Furosemide [Lasix] 40 mg PO BID 30 Days #60 tab 06/04/18 08/23/18 Unknown Rx Metoprolol [Lopressor] 25 mg PO Q12H tab 06/04/18 08/23/18 Unknown Rx Potassium Chloride E.r. 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 Pt reports SOB is worse with lying flat and also reports he fell on Thursday and hurt his right foot. Pt is on 3 liters of o2 at home and is partially bedridden. Pt denies N/V/D. Pt has hx CAD, DM, CVA, HTN and blood clots. Severity in ED: reports: severe Onset/Duration: reports: just prior to arrival Timing: reports: still present Cough Quality/Degree: reports: mild, dry cough Episode Frequency: chronic episodes Current Respiratory Medication Therapy: Initiated see nurses note Modifying Factors: improves with: oxygen. worse with: exertion, coughing, lying down Associated Symptoms: reports: fever/chills, shortness of breath, wheezing. denies: chest pain/soreness Similar Symptoms Previously?: Yes Recently seen or treated by another doctor?: Yes Review of Systems - Adult - REVIEW OF SYSTEMS - ADULT Constitutional: reports: see HPI, fever, fatique. denies: chills Eyes: reports: no symptoms reported Ears, Nose, Mouth & Throat: reports: no symptoms reported Cardiovascular: reports: no symptoms reported Respiratory: reports: see HPI, cough, shortness of breath, wheezing Gastrointestinal: reports: no symptoms reported Genitourinary: reports: no symptoms reported Musculoskeletal: reports: no symptoms reported Integumentary: reports: see HPI, other (tenderness/swelling right foot) Neurological: reports: no symptoms reported Psychiatric: reports: no symptoms reported Endocrine: reports: no symptoms reported Hematologic/Lymphatic: reports: no symptoms reported Allergic/Immunologic: reports: no symptoms reported All Other Systems: Reviewed and Negative Past History - Adult - PAST MEDICAL HISTORY-ADULT Review of Records: reports: Old Records Reviewed, Nursing Assessment Review, Medications Reviewed, Social history reviewed & non-contributory. Major Childhood Illnesses: reports: denies history Cardiovascular: reports: blood clots, CAD, HTN, hyperlipidemia Respiratory: reports: cancer Gastrointestinal: reports: denies history Obstetrical/Gynecological: reports: denies history Genitourinary: reports: denies history Musculoskeletal: reports: denies history Neurological: reports: CVA Endocrine/Immune: reports: Diabetes Other Conditions: reports: other - PRIOR SURGERIES/PROCEDURES Surgical/Procedure History: reports: CABG - IMMUNIZATION STATUS Childhood Immunizations: See Nurse Assessment Flu Vaccine: See Nurse Assessment - FAMILY HISTORY Family History: reviewed, not pertinent Physical Exam-General - PHYSICAL EXAM-ADULT Initial Vital Signs Reviewed: Yes - CONSTITUTIONAL General Appearance: moderate distress, thin. negative: anxious, combative - EYES Eyes: PERRL/EOMI, pink conjunctivae. negative: photophobia - HEAD, EARS, NOSE, MOUTH & THROAT HENMT: moist mucous membranes, normal ENT inspection. negative: angioedema - NECK Neck: non-tender, full range of motion, supple, normal inspection. negative: Brudzinski's sign, carotid bruit - RESPIRATORY Respiratory: chest non-tender, respiratory distress, decreased breath sounds (tightness), accessory muscle use, crackles (base), wheezing, other (can't speak full sentences). negative: normal breath sounds - CARDIOVASCULAR Cardiovascular: normal peripheral pulses, regular rate, rhythm, no gallop, no JVD, no murmur. negative: bradycardia, tachycardia - GASTROINTESTINAL (ABDOMEN) Abdominal Exam: normal bowel sounds, non tender, soft. negative: rigid, rebound, tenderness - LYMPHATIC Lymphatic: no adenopathy. negative: striations - MUSCULOSKELETAL Back Exam: normal inspection. negative: swelling Extremity: pedal edema (right), swelling (RLE), tenderness (RLE). negative: deformity - SKIN Integumentary: warm/dry, other (3 sores right foor; numerous bruises both arms and right side back chest wall). 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 negative: facial droop, focal weakness - PSYCHIATRIC Psych/Mental Status: normal mood/affect, normal thought content, normal thought process, oriented x 3. negative: anxious Progress - PLAN OF CARE/RESULTS Progress/Plan/Lab Results: Vital Signs - 8 hr 08/22/18 22:43 08/22/18 22:46 08/22/18 22:49 Temperature 97.4 F L Pulse Rate 65 66 Respiratory Rate 20 22 Blood Pressure 146/62 146/62 O2 Sat by Pulse Oximetry 89 L 87 L 96 08/22/18 22:50 08/22/18 22:52 08/22/18 23:00 Temperature Pulse Rate 65 65 61 Respiratory Rate 25 H 27 H 24 Blood Pressure O2 Sat by Pulse Oximetry 98 93 L 100 08/22/18 23:03 08/22/18 23:34 08/22/18 23:40 Temperature Pulse Rate 61 71 63 Respiratory Rate 28 H Blood Pressure 118/56 O2 Sat by Pulse Oximetry 98 94 L 08/22/18 23:48 08/22/18 23:50 08/23/18 00:00 Temperature Pulse Rate 64 64 63 Respiratory Rate Blood Pressure 138/44 O2 Sat by Pulse Oximetry 93 L 94 L 95 08/23/18 00:03 08/23/18 00:06 08/23/18 00:10 Temperature Pulse Rate 64 65 65 Respiratory Rate 19 21 Blood Pressure 137/48 142/54 O2 Sat by Pulse Oximetry 94 L 93 L 94 L 08/23/18 00:18 08/23/18 00:20 08/23/18 00:30 Temperature Pulse Rate 62 62 63 Respiratory Rate 20 22 20 Blood Pressure 144/50 O2 Sat by Pulse Oximetry 95 95 95 08/23/18 00:33 08/23/18 00:40 08/23/18 00:47 Temperature Pulse Rate 62 62 61 Respiratory Rate 20 17 24 Blood Pressure 146/52 139/53 O2 Sat by Pulse Oximetry 94 L 96 94 L 08/23/18 00:50 08/23/18 01:00 08/23/18 01:03 Temperature Pulse Rate 62 62 61 Respiratory Rate 24 19 24 Blood Pressure 136/49 O2 Sat by Pulse Oximetry 93 L 95 95 08/23/18 01:10 08/23/18 01:18 08/23/18 01:20 Temperature Pulse Rate 61 61 61 Respiratory Rate 14 Blood Pressure 138/50 O2 Sat by Pulse Oximetry 96 95 96 08/23/18 01:30 08/23/18 01:33 08/23/18 01:40 Temperature Pulse Rate 62 68 53 L Respiratory Rate Blood Pressure 140/54 O2 Sat by Pulse Oximetry 95 94 L 95 08/23/18 01:48 08/23/18 01:50 08/23/18 02:00 Temperature Pulse Rate 70 64 Respiratory Rate Blood Pressure 137/67 O2 Sat by Pulse Oximetry 93 L 92 L 94 L 08/23/18 02:02 08/23/18 02:10 08/23/18 02:17 Temperature Pulse Rate Respiratory Rate Blood Pressure 142/54 147/57 O2 Sat by Pulse Oximetry 95 94 L 94 L 08/23/18 02:20 08/23/18 02:30 08/23/18 02:33 Temperature Pulse Rate Respiratory Rate Blood Pressure 141/54 O2 Sat by Pulse Oximetry 93 L 94 L 94 L 08/23/18 02:40 08/23/18 02:48 08/23/18 02:50 Temperature Pulse Rate 63 63 Respiratory Rate Blood Pressure 148/51 O2 Sat by Pulse Oximetry 93 L 95 93 L 08/23/18 03:00 08/23/18 03:03 08/23/18 03:10 Temperature Pulse Rate 62 61 63 Respiratory Rate Blood Pressure 147/59 O2 Sat by Pulse Oximetry 93 L 94 L 92 L 08/23/18 03:18 08/23/18 03:20 08/23/18 03:30 Temperature Pulse Rate 60 60 61 Respiratory Rate Blood Pressure 139/52 O2 Sat by Pulse Oximetry 94 L 94 L 95 08/23/18 03:32 08/23/18 03:40 Temperature Pulse Rate 61 60 Respiratory Rate Blood Pressure 136/61 O2 Sat by Pulse Oximetry 95 95 Laboratory Results - last 24 hr 08/22/18 08/23/18 08/23/18 23:35 00:20 00:20 WBC 16.08 H RBC 4.41 L Hgb 8.0 L Hct 28.9 L MCV 65.5 L MCH 18.1 L MCHC 27.7 L RDW Std Deviation 17.7 H Plt Count 390 MPV 10.0 Immature Gran % (Auto) 0.2 Neut % (Auto) 79.9 H Lymph % (Auto) 11.3 L [place] % (Auto) 6.4 Eos % (Auto) 1.9 Baso % (Auto) 0.3 Immature Gran # (Auto) 0.04 Neut # (Auto) 12.85 H Lymph # (Auto) 1.81 [place] # (Auto) 1.03 H Eos # (Auto) 0.30 Baso # (Auto) 0.05 PT INR PTT (Actin FS) D-Dimer, Quantitative Specimen Type ARTERIAL Sample Site L RADIAL pH 7.41 pCO2 46 H pO2 59 L HCO3 28.1 H Base Excess 4.1 H Oxyhemoglobin 91.9 L ABG O2 Sat (Calculated) 9.9 L ABG O2 Saturation 93.0 L ABG Carboxyhemoglobin 1.20 ABG Methemoglobin 0.0 Km Test YES A-a O2 Difference 169.0 Total Hemoglobin 7.6 L Lactate 1.10 Liter Flow 5.0 Blood Gas Modality CANNULA FiO2 % 40.0 Sodium Potassium Chloride Carbon Dioxide Anion Gap BUN Creatinine Estimated GFR/1.73 m2 BUN/Creatinine Ratio Glucose Calculated Osmolality Calcium Total Bilirubin AST ALT Alkaline Phosphatase Creatine Kinase Troponin T Vzr-I-Aixomoiqqjf Pept Total Protein Albumin Globulin Albumin/Globulin Ratio Plasma Lactate 2.0 08/23/18 08/23/18 08/23/18 00:20 00:20 00:20 WBC RBC Hgb Hct MCV MCH MCHC RDW Std Deviation Plt Count MPV Immature Gran % (Auto) Neut % (Auto) Lymph % (Auto) [place] % (Auto) Eos % (Auto) Baso % (Auto) Immature Gran # (Auto) Neut # (Auto) Lymph # (Auto) [place] # (Auto) Eos # (Auto) Baso # (Auto) PT INR PTT (Actin FS) D-Dimer, Quantitative Specimen Type Sample Site pH pCO2 pO2 HCO3 Base Excess Oxyhemoglobin ABG O2 Sat (Calculated) ABG O2 Saturation ABG Carboxyhemoglobin ABG Methemoglobin Km Test A-a O2 Difference Total Hemoglobin Lactate Liter Flow Blood Gas Modality FiO2 % Sodium 139 Potassium 4.5 Chloride 102 Carbon Dioxide 27 Anion Gap 10 BUN 15 Creatinine 0.7 Estimated GFR/1.73 m2 > 60 BUN/Creatinine Ratio 21 Glucose 159 H Calculated Osmolality 282 Calcium 8.2 L Total Bilirubin 0.18 L AST 12 ALT 5 L Alkaline Phosphatase 80 Creatine Kinase 32 Troponin T < 0.010 Drb-L-Iccmwlqcwtz Pept 5542 H Total Protein 6.3 Albumin 3.1 L Globulin 3.2 Albumin/Globulin Ratio 1.0 Plasma Lactate 08/23/18 08/23/18 00:20 00:20 WBC RBC Hgb Hct MCV MCH MCHC RDW Std Deviation Plt Count MPV Immature Gran % (Auto) Neut % (Auto) Lymph % (Auto) [place] % (Auto) Eos % (Auto) Baso % (Auto) Immature Gran # (Auto) Neut # (Auto) Lymph # (Auto) [place] # (Auto) Eos # (Auto) Baso # (Auto) PT 30.2 H INR 2.66 PTT (Actin FS) 61.4 H D-Dimer, Quantitative 2.55 H Specimen Type Sample Site pH pCO2 pO2 HCO3 Base Excess Oxyhemoglobin ABG O2 Sat (Calculated) ABG O2 Saturation ABG Carboxyhemoglobin ABG Methemoglobin Km Test A-a O2 Difference Total Hemoglobin Lactate Liter Flow Blood Gas Modality FiO2 % Sodium Potassium Chloride Carbon Dioxide Anion Gap BUN Creatinine Estimated GFR/1.73 m2 BUN/Creatinine Ratio Glucose Calculated Osmolality Calcium Total Bilirubin AST ALT Alkaline Phosphatase Creatine Kinase Troponin T Rax-P-Uhzobuuzapd Pept Total Protein Albumin Globulin Albumin/Globulin Ratio Plasma Lactate Orders Category Date Time Status Admit - [facility] Routine AdmDCTranf 08/23/18 03:16 Active Activity - Bedrest with BSC ORDERED Care 08/23/18 03:16 Active FSBS/Accucheck Result AC + HS Care 08/23/18 03:16 Active Intake and Output-Strict ORDERED Care 08/23/18 03:16 Active Saline Loc NOW Care 08/22/18 22:53 Active Update & Confirm Home Medicati ROUTINE Care 08/23/18 03:14 Active Vital Signs Order Q6-HR ASSESS Care 08/23/18 03:16 Active Z-Document. for Tele Applied ORDERED Care 08/23/18 03:16 Active Diabetic Diet Diet 08/23/18 03:17 Active CHEST-PORTABLE [RAD] Stat Exams 08/22/18 22:[address] HEAD/C-SPINE W/O CONTRAST [CT] Stat Exams 08/22/18 22:54 Taken FOOT COMPLETE RIGHT [RAD] Stat Exams 08/22/18 22:55 Taken ABG [RESP] Routine Lab 08/22/18 23:35 Completed BASIC METABOLIC PANEL [CHEM] Routine Lab 08/24/18 06:00 Uncollected BLOOD CULTURE [BLDCUL] Stat Lab 08/23/18 01:30 Results CBC WITH DIFF [HEME] Routine Lab 08/24/18 06:00 Uncollected CBC WITH DIFF [HEME] Stat Lab 08/23/18 00:20 Completed CK PROFILE [SP CHEM] Stat Lab 08/23/18 00:20 Completed COMPREHENSIVE METABOLIC PANEL [CHEM] Stat Lab 08/23/18 00:20 Completed D-DIMER [COAG] Stat Lab 08/23/18 00:20 Completed LACTATE, PLASMA [CHEM] Stat Lab 08/23/18 00:20 Completed PRO B-NATRIURETIC PEPTIDE Stat Lab 08/23/18 00:20 Completed PROTIME WITH INR [COAG] Lab 08/24/18 06:00 Uncollected PROTIME WITH INR [COAG] Lab 08/25/18 06:00 Uncollected PROTIME WITH INR [COAG] Lab 08/26/18 06:00 Uncollected PROTIME WITH INR [COAG] Lab 08/27/18 06:00 Uncollected PROTIME WITH INR [COAG] Stat Lab 08/23/18 00:20 Completed PTT [COAG] Stat Lab 08/23/18 00:20 Completed TROPONIN T Stat Lab 08/23/18 00:20 Completed TSH Routine Lab 08/24/18 06:00 Uncollected Acetaminophen [Tylenol] Med 08/23/18 03:16 Active 650 mg PO Q6H PRN PRN Albuterol 2.5MG/Ipratrop 0.5MG [Duoneb (A & A)] Med 08/22/18 22:52 Discontinued 3 ml INH NOW ONE Albuterol 2.5MG/Ipratrop 0.5MG [Duoneb (A & A)] Med 08/23/18 04:00 Active 3 ml INH RTQ6H Azithromycin 500 mg/Ns [Zithromax 500 mg/Ns] Med 08/23/18 00:57 Discontinued 500 mg in 250 ml IV NOW CefTRIAXONE [Rocephin] 1 gm Med 08/23/18 00:56 Discontinued 0.9% Sodium Chloride Inj [Ns] 50 ml IV NOW Doxycycline 100 mg Med 08/23/18 03:30 Ordered 0.9% Sodium Chloride Inj [Ns] 250 ml IV Q12H Furosemide [Lasix] Med 08/23/18 01:58 Discontinued 40 mg IV NOW ONE Hydrocodone/APAP 5 mg/325 mg [[place]-5] Med 08/23/18 02:34 Discontinued 1 each PO NOW ONE Hydrocodone/APAP 7.5 mg/325 mg [[place]-7.5] Med 08/23/18 03:16 Active 1 - 2 each PO Q6H PRN PRN Insulin Lispro [Humalog] Med 08/23/18 07:00 Active See Protocol SUBQ 0700,1100,1600,2100 Methylprednisolone Sod Succ [Solu-Medrol] Med 08/22/18 22:52 Discontinued 125 mg IV NOW ONE Ondansetron [Zofran] Med 08/23/18 03:16 Active 4 mg IV Q4H PRN PRN Piperacillin/Tazobactam [Zosyn] 3.375 gm Med 08/23/18 03:30 Active 0.9% Sodium Chloride Inj [Ns] 50 ml IV Q6H Tramadol [Ultram] Med 08/22/18 23:59 Discontinued 50 mg PO NOW ONE Aerosol Treatments Routine Oth 08/22/18 22:54 Completed Aerosol Treatments Routine Oth 08/23/18 03:19 Active Aerosol Treatments Stat Oth 08/22/18 22:54 Completed Aerosol Treatments Stat Ot 08/23/18 03:19 Active Pulse Oximetry Stat Ot 08/22/18 22:53 Active Telemetry [OM.EQ] Routine Oth 08/23/18 03:16 Active Transfer/Admit Order [TRANSFER] Routine Transfer 08/23/18 03:19 Ordered Result Diagrams: 08/23/18 00:20 08/23/18 00:20 - EKG 1 Time of EKG reading by physician:: 22:59 EKG Read and Signed by:: Almas Tran EKG Interpretation (*Must complete 3 of following elements*): Abnormal Rate: 66 Rhythm: sinus with 1st dgree AV block [place]: left QRS: RBB - CT/MRI 1 CT Study: Cervical Spine, other (Brain) Impression: See EMR Report (1.No acute cervical spine fracture identified. 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.) - CONSULTS/PCP/HOSPITALIST Notification #1 *Consult/PCP/Hospitalist*: DR DONOVAN Time Discussed: 03:07 Consult Disposition: Will see in ED, Admit Departure - Departure Date of Disposition Decision: 08/23/18 Time of Disposition Decision: 03:07 DIAGNOSIS: Dyspnea, CHF (congestive heart failure), Pneumonia, Cellulitis of foot, right Disposition: ADMITTED INPATIENT 09 Certified Medical Emergency: Emergent Condition: Good Referrals and Follow-Ups: Km Palencia MD [Primary Care Provider] - - Critical Care Note This patient required my direct & personal management of CC.: No Attestation - Physician/ JOHANN Attestation Patient care was provided by Advanced Practice Provider:: No The physician spent face to face time with patient:: Yes Advanced Practice Provider documentation review:: Supervising physician onsite and consulted in the evaluation and care of this patient. The physician did have a face to face encounter with the patient. This chart was documented by the indicated scribe, (Luz Jones Scribe) and accurately reflects the services I performed and decisions made by , Almas Tran MD, as attested by the provider's signature.
[2018-08-23 01:01] LABS: AGAP 10; ALBUMIN 3.1 g/dL (3.5-5.0); ALKALINE PHOSPHATASE 80 U/L (32-122); BUN 15 mg/dL (8-22); CALCIUM 8.2 mg/dL (8.8-10.2); CHLORIDE 102 mmol/L (98-107); CK PROFILE 32 U/L (24-204); COSMO 282; CREATININE 0.7 mg/dL (0.7-1.2); ESTIMATED GFR > 60; GLUCOSE 159 mg/dL (70-104); GOT 12 U/L (10-34); GPT 5 U/L (10-44); POTASSIUM 4.5 mmol/L (3.5-5.1); SODIUM 139 mmol/L (136-145); TCO2 27 mmol/L (25-35); TOTAL BILIRUBIN 0.18 mg/dL (0.20-1.00); TOTAL PROTEIN 6.3 g/dL (6.3-8.3)
[2018-08-23] MEDS ORDERED: LASIX IV ONE (01:58)
[2018-08-23] MEDS ORDERED: NORCO-5 PO ONE (02:34)
[2018-08-23 02:37] LABS: INR 2.66; PROTIME 30.2 Seconds (11.0-16.0)
[2018-08-23 02:38] LABS: PTT 61.4 Seconds (22.3-41.8)
[2018-08-23] MEDS ORDERED: TYLENOL PO PRN (03:16)
[2018-08-23] MEDS ORDERED: ZOFRAN IV PRN (03:16)
[2018-08-23] MEDS ORDERED: DOXYCYCLINE 100 MG in NS 250 ML IV SCH (03:30)
[2018-08-23] MEDS: NORCO-7.5 PO PRN (03:33)
--- NOTE | 2018-08-23 04:39 | Diag Imaging Result Doc PS360 ---
EXAM : CT HEAD/C-SPINE W/O CONTRAST HISTORY: fall TECHNIQUE: 1. Emergent CT of the head without contrast 2. Emergent CT of the cervical spine without contrast COMPARISON: Head as compared to 05/29/2018 FINDINGS: Head: No parenchymal hemorrhage. No epidural or subdural hematoma. No subarachnoid hemorrhage. There is atrophy with chronic microvascular ischemic changes. Small old left parietal infarct. No mass identified on this noncontrasted exam. No hydrocephalus. No skull fracture. Cervical spine: There is good alignment to the cervical spine. No precervical soft tissue swelling. No subluxation. No fracture. Moderate degenerative bone spurring throughout the mid and lower cervical spine. Moderate plaque in the carotid bulbs. There is scarring and pleural thickening versus effusions in the upper lobes. IMPRESSION: Head: No hemorrhage. Old left infarct with chronic microvascular ischemic changes. Cervical spine: No acute fracture. A preliminary report was given at 11:56 PM on 08/22/2018 This exam was performed using automated exposure control, adjustment of mA or kV according to patient size, and/or use of iterative reconstruction technique. Electronically signed by Yong Zamudio 08/23/2018 4:37 AM
--- NOTE | 2018-08-23 05:23 | Diag Imaging Result Doc PS360 ---
EXAM: CHEST-PORTABLE HISTORY: cough TECHNIQUE: Portable chest single view COMPARISON: 06/28/2018 FINDINGS: There are increased interstitial markings diffusely throughout both lungs. There are [id number] sized pleural effusions. The heart is enlarged. There are sternal wires and surgical clips. There is atelectasis in the left lung IMPRESSION: Stable chest. No interval improvement. Electronically signed by Yong Zamudio 08/23/2018 5:21 AM
[2018-08-23] MEDS: ZOSYN 3.375 GM in NS 50 ML IV SCH ×4 (05:28→20:31)
--- NOTE | 2018-08-23 05:30 | Diag Imaging Result Doc PS360 ---
EXAM: FOOT COMPLETE RIGHT HISTORY: fall, foot pain TECHNIQUE: Right foot, three views COMPARISON: None. FINDINGS: The bones are markedly osteopenic. There are multiple tiny cysts in the bones. No fracture. No dislocation. IMPRESSION: No acute bony injury although the bones are markedly osteopenic. Electronically signed by Yong Zamudio 08/23/2018 5:28 AM
--- NOTE | 2018-08-23 06:13 | HISTORY AND PHYSICAL ---
PRIMARY CARE PROVIDER: Km Palencia. CHIEF COMPLAINT: Shortness of breath. HISTORY OF PRESENT ILLNESS: Mr. Benitez is a 78-year-old male that has had increasing shortness of breath over the last couple days as well as fever and chills prior to arrival. He also complains of PND and orthopnea. He stated that he fell on Thursday and hurt his right foot. He is on 3 L nasal canal home O2 and is somewhat sedentary or partially bedridden. He denies any type of nausea, vomiting and diarrhea. Right foot was noted to have three small sores on it which appear to be diabetic foot ulcers. Chest x-rays showed increased pulmonary vascular congestion as well as bilateral infiltrates. His foot x-ray only showed soft tissue swelling. He will be admitted for further evaluation and treatment. PAST MEDICAL HISTORY: Hypertension, diabetes mellitus, type 2, hyperlipidemia, lung cancer, coronary artery disease, COPD, previous congestive heart failure with an ejection fraction around 45% and blood clots. PREVIOUS SURGICAL HISTORY: GABG done in 2017, left pleural effusion with thoracentesis. SOCIAL HISTORY: No tobacco, alcohol or illicit drugs. FAMILY HISTORY: Positive for diabetes mellitus. ALLERGIES: To lisinopril and Demerol. HOME MEDICATIONS: Lexapro 10 mg p.o. daily, potassium chloride 40 mEq p.o. daily, metoprolol 25 mg p.o. q.12, Nexium 40 mg p.o. daily, amiodarone 200 mg p.o. daily, furosemide 40 mg p.o. b.i.d., Milk of Magnesium p.o. daily, Coumadin 2 mg p.o. nightly. REVIEW OF SYSTEMS: Fourteen-point review of systems conducted with the patient. Pertinent positives listed above in the HPI. All other systems reviewed and found to be negative. PHYSICAL EXAMINATION: VITAL SIGNS: Temperature 97.4, pulse 61, respirations 18, blood pressure 136/61, oxygen saturation 95% on 3 L nasal cannula. GENERAL: A 78-year-old male lying in the ER stretcher. Well-developed, well- nourished, in mild respiratory distress. HEENT: Head is atraumatic, normocephalic. Pupils equal, round, reactive to light. Extraocular eye movements intact. Sclera is anicteric. Conjunctivae is pale. Oral mucosa is moist. NECK: Supple. Mild JVD. Trachea is midline. No cervical lymphadenopathy. CARDIAC: S1, S2 appreciated. No murmurs, gallops, rubs. LUNGS: Decreased bilaterally. Crepitation is noted throughout bilateral air wilkins. Expiratory wheeze. ABDOMEN: Soft, nondistended, nontender. Bowel sounds present all 4 quadrants, normoactive. No pulsatile mass. No organomegaly. EXTREMITIES: No clubbing or cyanosis. Right pedal edema noted, 2-plus with erythema and tenderness to palpation. Three small sores noted on this foot. There were numerous bruises on bilateral arms. NEUROLOGICAL: Alert and oriented times 3. No focal or motor deficits. Otherwise, nonfocal examination. GENITOURINARY: No bladder distention. Patient voids. Otherwise deferred. DIAGNOSTIC DATA: Chest x-ray shows increased pulmonary vascular congestion, bilateral infiltrates. Foot x-ray shows soft tissue edema. LABORATORY DATA: WBC 16.08. Hemoglobin 8. Hematocrit 28.9. Platelet count 390. ABG: pH is 7.41, pCO2 of 46, pO2 of 59, bicarbonate 28.1. Sodium 139. Potassium 4.5. Chloride 102. Carbon dioxide 27. BUN 15. Creatinine 0.7. Glucose 159. ProBNP 5549. ASSESSMENT AND PLAN: 1. Right foot cellulitis. Blood cultures have been drawn. Will cover for MRSA and then broad spectrum with Zosyn IV. [place] as needed for pain. 2. Community-acquired pneumonia. As noted above, patient will be on doxycycline and Zosyn. Blood cultures have been obtained. Will give DuoNebs. 3. Congestive heart failure with exacerbation. 40 of Lasix was given in the emergency room. Continue patient's home 40 mg Lasix b.i.d. p.o. 4, Atrial fibrillation. Continue Coumadin, metoprolol and amiodarone. Check INR daily. 5. Hypoxic respiratory failure. See above. Further recommendations per patient clinical course. Dictated by MIMA Nolan for Todd Ray MD I have performed a face to face diagnostic evalaution. Labs/ Xrays- reviewed; Exam- chest - rhonchi, Ext- RT foot erythema. A/P- Rt foot cellulitis; Pneumonia- Admit, check bld cultures, IV ABX Dr. Ray cc: MIMA Nolan MD Allen J. Schmidt, MD [facility]
[2018-08-23] MEDS ORDERED: VANCOMYCIN IV PER PHARMACY MISC SCH (08:15)
[2018-08-23] MEDS: MILK OF MAGNESIA PO SCH (08:18)
[2018-08-23] MEDS: HUMALOG SUBQ SCH ×4 (08:19→20:31)
[2018-08-23] MEDS: LOPRESSOR PO SCH ×2 (08:19→20:30)
[2018-08-23] MEDS: CORDARONE PO SCH (08:19)
[2018-08-23] MEDS: KLOR-CON PO SCH (08:19)
[2018-08-23] MEDS: LASIX PO SCH ×2 (08:19→20:30)
[2018-08-23] MEDS: LEXAPRO PO SCH (08:19)
[2018-08-23] MEDS: DUONEB (A & A) INH SCH ×4 (08:21→21:23)
[2018-08-23] MEDS: NEXIUM PO SCH (08:21)
--- NOTE | 2018-08-23 08:37 | PROGRESS NOTE ---
DATE: 08/23/2018 HISTORY: This is a patient of mine, presented with shortness of breath. A 78-year-old with increased shortness of breath over the last couple days, as well as some fever and chills. He also complained of paroxysmal nocturnal dyspnea and orthopnea which started on Thursday. He is on 3 L of nasal cannula at home. He is pretty sedentary at home. Denies any nausea, vomiting, or diarrhea. Right foot noted to have 3 small sores consistent with diabetic ulcers and an x-ray showed bilateral infiltrates. PAST MEDICAL HISTORY: 1. Hypertension. 2. Diabetes mellitus type 2. 3. Hyperlipidemia. 4. Had lung cancer. 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 5. He has a history of coronary artery disease. 6. COPD. 7. Previous congestive heart failure with ejection fraction measured at 45%. 8. Status post CABG in 2017. 9. He has had left pleural effusion with thoracentesis and then he developed a DVT. He actually had hemothorax and this was drained. Then, after, developed pulmonary thromboemboli. He is breathing comfortably at the present time but he is confused this morning. OBJECTIVE: His temperature is 97.8 degrees, pulse 54, respirations 17, blood pressure 131/50. Weight is 160 pounds. Height 5 feet 11 inches. Blood sugar 189. White blood cell count 16,080, hematocrit is 28, hemoglobin 8, platelet count 390,000. Sodium 139, potassium 4.3, chloride 102, bicarb is 27, BUN 15, creatinine 0.7, blood sugar 159, calcium 8.2. AST was 12, ALT was 5, alkaline phosphatase is 80. ProBNP was 5542. Albumin 3.2. Blood gases on arrival, pH of 7.41, pCO2 46, PO2 is 59, O2 saturation 93%. Chest x-ray from yesterday, stable chest, no interval improvement. He has had interstitial markings diffusely throughout both lungs. Small to moderate size pleural effusion. Heart is enlarged. Noted the sternal wires and surgical clips. He has atelectasis in the left lung base. His foot x-ray, no acute bony injury. The bones are markedly osteopenic. Head and cervical spine, there is no hemorrhage, old left infarct, chronic microvascular ischemic changes. Cervical spine with no acute fracture. ASSESSMENT AND PLAN: 1. Right foot cellulitis. Blood cultures drawn. We will cover for Methicillin-resistant Staphylococcus aureus. Put on broad-spectrum, Zosyn, and make sure we are covering for gram- positive as well. 2. Community-acquired pneumonia. He is on Zosyn. 3. Congestive heart failure with exacerbation, was given 40 mL of Lasix. 4. Atrial fibrillation, rate is controlled. The patient is on Coumadin. 5. Also history of pulmonary thromboembolism recently. 6. Hypoxemic respiratory failure with recent history of pulmonary thromboembolism. We may need to repeat a CT of his chest while he is here. REVIEW OF ORDERS: He is on warfarin 4 mg a day, amiodarone 200 mg daily, doxycycline 100 mg IV q.12, Lasix 40 mg p.o. b.i.d., Lopressor 25 mg p.o. q.12 hours, potassium chloride 40 mEq a day, Zosyn 3.375 g IV q.6 hours, and he got 1 dose of azithromycin in the emergency room. Cultures are pending. Probably need to cover him with vancomycin until we get cultures back. cc: Km Palencia MD
[2018-08-23] MEDS ORDERED: XYLOCAINE 2% VISCOUS MT ONE (09:21)
[2018-08-23] MEDS ORDERED: XYLOCAINE 2% JELLY UROJECT TOP ONE (09:23)
[2018-08-23] MEDS ORDERED: NS IV ONE (10:00)
[2018-08-23] MEDS ORDERED: VANCOMYCIN IV ONE (10:00)
[2018-08-23 10:12] LABS: URINE SOURCE CATH
[2018-08-23 10:19] LABS: BILIRUBIN URINE NEGATIVE (NEGATIVE); BLOOD URINE MODERATE (NEGATIVE); COLOR YELLOW; GLUCOSE URINE NEGATIVE (NEGATIVE); KETONE URINE NEGATIVE (NEGATIVE); LEUKOCYTES URINE NEGATIVE (NEGATIVE); NITRITE URINE NEGATIVE (NEGATIVE); PH URINE 5.5; PROTEIN URINE NEGATIVE (NEGATIVE); SP GRAVITY URINE 1.005; TURBIDITY URINE CLEAR (CLEAR); UROBILINOGEN URINE NORMAL (NORMAL)
[2018-08-23 10:20] LABS: UR EPITHELIAL CELLS <10 /HPF (<10); URINE BACTERIA NEGATIVE /HPF; URINE RBC TNTC /HPF (<10); URINE WBC <10 /HPF (<10)
--- NOTE | 2018-08-23 10:58 | CONSULTATION ---
DATE OF CONSULTATION: 08/23/2018 ATTENDING AND REFERRING PHYSICIAN: Km Palencia MD HISTORY OF PRESENT ILLNESS: This 78-year-old male was admitted with exacerbation of congestive heart failure/COPD. The patient is on 3 L of oxygen at home. The patient had an attempt at placing a Armijo catheter without success. A bladder scan revealed over 100 mL in the bladder. The patient states he normally has no problems voiding. He states he rarely has an urge to void. He just goes. He denies any previous urologic surgery. He has no problems with urinary infections. He has no history of kidney stones. He has had no hematuria. The patient has had several medical procedures that normally require a Armijo catheter placement. 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 He states he is bed-bound and has difficulty getting around. The patient denies any bowel problems. PAST MEDICAL HISTORY: Coronary artery disease, hypertension, elevated cholesterol, diabetes, lung cancer, COPD, history of congestive heart failure. CURRENT MEDICATIONS: Documented on the chart. He is not taking any medication for his prostate or obstructive voiding. 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 SOCIAL HISTORY: No tobacco or alcohol use. He lives at home. ALLERGIES: He is allergic to lisinopril and Demerol. REVIEW OF SYSTEMS: He does have atrial fibrillation. He states that causes no problems. He has had no recent chest pains. He denies bowel problems. He states he voids without difficulty. PHYSICAL EXAMINATION: General: A normally developed, well-nourished, age apparent, white male, oriented in all ways and cooperative. HEENT: Normal for age. Lungs: Clear with distant breath sounds. Cardiovascular: Irregular rate and rhythm. Not tachycardic. Abdomen: Mildly protuberant, soft, nontender. No hepatosplenomegaly or masses. Normal bowel sounds. : Normal male. Both testes are down. Scrotal exam is normal. No inguinal hernias. Rectal: Deferred for now. Neurologic: With some weakness of the right upper extremity, and right lower extremity. He is able to move all extremities. Extremities: No clubbing, cyanosis or edema. There are small sores on the right foot. LABORATORY EVALUATION: White count of 16.08, a hemoglobin 8, hematocrit of 28.9, and platelets are 390,000. Serum electrolytes are normal. BUN 15. Creatinine 0.7. IMPRESSION: 1. Urinary retention. 2. Possible neurogenic bladder secondary to a CVA. 3. Enlarged prostate with obstructive voiding. RECOMMEND: 1. The patient was prepped and draped sterilely for Armijo catheter placement. Approximately 20 mL of 2% viscous lidocaine was placed in the urethra and held for 5 minutes. After this was accomplished, a 16-German coude catheter was able to be manipulated up into the bladder. A large amount of clear yellow urine returned. Some of this urine will be sent for culture and sensitivities. 2. Start Flomax at 0.4 mg a day. Thank you for this consultation. cc: MD Km Manriquez MD
[2018-08-23] MEDS: FLOMAX PO SCH (20:31)
[2018-08-23] MEDS ORDERED: COUMADIN PO SCH (21:00)
[2018-08-24] MEDS: ZOSYN 3.375 GM in NS 50 ML IV SCH ×4 (03:23→20:30)
[2018-08-24] MEDS: DUONEB (A & A) INH SCH ×4 (03:38→21:18)
[2018-08-24] MEDS: NEXIUM PO SCH ×2 (05:34→06:09)
[2018-08-24] MEDS: HUMALOG SUBQ SCH ×4 (06:10→22:37)
[2018-08-24 06:15] LABS: INR 3.7; PROTIME 39.2 Seconds (11.0-16.0)
[2018-08-24 06:19] LABS: BASO# 0.01 X1000 (0.0-0.2); BASO% 0.1 % (0.0-0.8); HEMATOCRIT 24.9 % (42.0-52.0); HEMOGLOBIN 6.7 g/dL (14.0-18.0); IMM GRAN# 0.03 X1000 (0.0-0.04); IMM GRAN% 0.2 % (0.0-0.5); LYMPH% 11.1 % (20.5-51.1); MCH 17.8 PG (27-31); MCHC 26.9 g/dL (33-37); MONO# 1.22 X1000 (0.11-0.59); MPV 9.7 FL (7.4-10.4); NEUT# 12.31 X1000 (1.4-6.5); NEUT% 80.6 % (42.2-75.2); PLT 368 X1000 (130-400); RBC 3.77 XMIL (4.7-6.1); RDW 17.8 % (11.5-14.5); WBC 15.27 X1000 (4.8-10.8)
[2018-08-24 06:35] LABS: AGAP 9; BUN 18 mg/dL (8-22); CALCIUM 8.2 mg/dL (8.8-10.2); CHLORIDE 101 mmol/L (98-107); COSMO 285; CREATININE 0.7 mg/dL (0.7-1.2); ESTIMATED GFR > 60; GLUCOSE 128 mg/dL (70-104); IRON SATURATION 3 %; POTASSIUM 3.8 mmol/L (3.5-5.1); SODIUM 141 mmol/L (136-145); TCO2 31 mmol/L (25-35); TIBC 291 ug/dL; TOTAL IRON 10 ug/dL (53-167); UNBOUND IRON 281 ug/dL (112-346)
[2018-08-24 06:49] LABS: TSH 1.23 uIUmL (0.27-4.20)
--- NOTE | 2018-08-24 08:07 | EKG Report ---
Test Performed on : 08/22/2018 10:42:38 PM Test Reason : SOB Blood Pressure : / mmHG Vent. Rate : 066 BPM Atrial Rate : 066 BPM P-R Int : 252 ms QRS Dur : 160 ms QT Int : 482 ms P-R-T Axes : 012 -43 095 degrees QTc Int : 505 ms Sinus rhythm. with 1st degree AV block. Left axis deviation Left bundle branch block Abnormal ECG When compared with ECG of 22-JUN-2018 08:59, (Unconfirmed) premature atrial complexes. are no longer present Unconfirmed Result
[2018-08-24] MEDS: KLOR-CON PO SCH (08:29)
[2018-08-24] MEDS: LEXAPRO PO SCH (08:29)
[2018-08-24] MEDS: LOPRESSOR PO SCH ×2 (08:29→22:36)
[2018-08-24] MEDS: CORDARONE PO SCH (08:29)
[2018-08-24] MEDS: LASIX PO SCH ×2 (08:29→20:14)
[2018-08-24] MEDS: MILK OF MAGNESIA PO SCH (08:30)
--- NOTE | 2018-08-24 09:41 | PROGRESS NOTE ---
DATE: 08/24/2018 SUBJECTIVE: He is awake and alert, and feels better this morning. Armijo catheter is placed. It is yellow clear urine. OBJECTIVE: Temperature 98.2 degrees, pulse 52, respirations 16, and blood pressure 121/48. Pupils are equal and round. Lungs are clear in all lung wilkins. Cardiovascular exam with regular rhythm and rate without murmur or S3. Urine output is 3800 mL. Blood sugar 189, 197, and 132. ASSESSMENT AND PLAN: 1. Urinary retention and possible neurogenic bladder secondary to CVA, enlarged prostate with obstructive voiding. I appreciate Dr. Antoine help. The patient had a Armijo placed and has a 16-[place]. We have him on Flomax 0.4 mg. I believe we have that on twice a day. 2. Community-acquired pneumonia. He is on Zosyn. 3. Right foot cellulitis, which is improved. 4. Atrial fibrillation. He is on chronic Coumadin. Rate is controlled. 5. History of pulmonary thromboembolus, which he has had recently. 6. Before the thromboembolus, he had a left hemothorax which required chest tube, and we had stopped anticoagulation. 7. We will continue current orders. He is on Coumadin 4 mg at bedtime, Flomax 0.4 mg at bedtime, Cordarone 200 mg a day, Nexium 40 mg a day, Lasix 40 mg p.o. b.i.d., metoprolol 25 mg q.12h, vancomycin 1.45 g IV q.24 hours, and Zosyn 3.375 g IV q.6 hours. We will initiate physical therapy, and work on his strength and ambulation. Note that hematocrit is 24 and hemoglobin is 6.7 so he will probably need some blood. I will give him 1 unit of packed red blood cells today. His ProTime was 39 so I am going to stop the Coumadin for now. cc: Km Palencia MD
[2018-08-24] MEDS ORDERED: VANCOMYCIN 1.45 GM in NS 250 ML IV SCH (10:00)
[2018-08-24] MEDS: NORCO-7.5 PO PRN ×2 (11:04→20:12)
[2018-08-24] MEDS ORDERED: NS 500 ML ONE (11:08)
[2018-08-24] MEDS: FLOMAX PO SCH (20:13)
[2018-08-25] MEDS: DUONEB (A & A) INH SCH ×4 (03:47→21:27)
[2018-08-25] MEDS: ZOSYN 3.375 GM in NS 50 ML IV SCH ×4 (03:55→21:45)
[2018-08-25] MEDS: NEXIUM PO SCH (06:00)
[2018-08-25 06:03] LABS: BASO# 0.06 X1000 (0.0-0.2); BASO% 0.6 % (0.0-0.8); EOS# 0.24 X1000 (0.0-0.7); EOS% 2.5 % (0.0-10.0); HEMATOCRIT 28.7 % (42.0-52.0); HEMOGLOBIN 8.1 g/dL (14.0-18.0); IMM GRAN# 0.02 X1000 (0.0-0.04); IMM GRAN% 0.2 % (0.0-0.5); LYMPH# 2.06 X1000 (1.2-3.4); LYMPH% 21.1 % (20.5-51.1); MCH 19.2 PG (27-31); MCHC 28.2 g/dL (33-37); MCV 68.2 FL (81-99); MONO# 0.71 X1000 (0.11-0.59); MONO% 7.3 % (1.7-9.3); MPV 9.7 FL (7.4-10.4); NEUT# 6.68 X1000 (1.4-6.5); NEUT% 68.3 % (42.2-75.2); PLT 393 X1000 (130-400); RBC 4.21 XMIL (4.7-6.1); RDW 19.4 % (11.5-14.5); WBC 9.77 X1000 (4.8-10.8)
[2018-08-25 06:06] LABS: INR 4.12
[2018-08-25] MEDS: HUMALOG SUBQ SCH ×4 (06:08→21:44)
[2018-08-25 06:23] LABS: PROTIME 42.7 Seconds (11.0-16.0)
[2018-08-25 06:55] LABS: AGAP 9; BUN 17 mg/dL (8-22); CALCIUM 7.9 mg/dL (8.8-10.2); CHLORIDE 98 mmol/L (98-107); COSMO 283; CREATININE 0.7 mg/dL (0.7-1.2); ESTIMATED GFR > 60; GLUCOSE 107 mg/dL (70-104); MAGNESIUM 1.7 mg/dL (1.5-2.7); POTASSIUM 3.2 mmol/L (3.5-5.1); SODIUM 141 mmol/L (136-145); TCO2 34 mmol/L (25-35)
[2018-08-25] MEDS: CORDARONE PO SCH (08:12)
[2018-08-25] MEDS: NORCO-7.5 PO PRN ×2 (08:14→14:41)
[2018-08-25] MEDS: LOPRESSOR PO SCH ×2 (08:14→21:45)
[2018-08-25] MEDS: LASIX PO SCH ×2 (08:14→21:44)
[2018-08-25] MEDS: KLOR-CON PO SCH (08:15)
[2018-08-25] MEDS: MILK OF MAGNESIA PO SCH (08:15)
--- NOTE | 2018-08-25 09:15 | PROGRESS NOTE ---
DATE: 08/25/2018 SUBJECTIVE: Mr. Benitez is feeling better. He is asking when he can go home. Remains afebrile. Still has Armijo catheter in. It is yellow, clear urine. OBJECTIVE: Vital Signs: Temperature 97.8 degrees, pulse 59, respirations 17, blood pressure 126/41. Eyes: Pupils are equal and round. Lungs: Clear in all lung wilkins. Cardiovascular exam: Regular rhythm and rate without murmur or S3. Abdomen: Soft. Skin: Warm and dry. : Urine output is 2600 mL. Blood sugar 132, 101 and 121. ASSESSMENT AND PLAN: 1. Urinary retention, possible neurogenic bladder secondary to cerebrovascular accident, enlarged prostate, and Armijo catheter in place. I have started him on Flomax. I think we will continue the Armijo catheter. Question is on how long to leave it in, but I think it needs to stay in for a couple days, maybe see if we can stop it after a couple days. We are going to initiate physical therapy. 2. Community-acquired pneumonia. He is on Zosyn. 3. Right foot cellulitis, which appears to have resolved. 4. Atrial fibrillation on chronic Coumadin. Rate is controlled. His Coumadin level was 42, so we have stopped the Coumadin. He recently had bilateral pulmonary thromboemboli. So, I am going to let his pro time come down. I would like to keep it close to 2.0. 5. Respiratory status appears to be doing well. He is on Lasix 40 mg twice a day. 6. History of atrial fibrillation. He is on amiodarone 200 mg daily. He is getting vancomycin and Zosyn. Blood cultures no growth thus far. I am going to stop his vancomycin. Continue Zosyn for now. cc: Km Palencia MD
[2018-08-25] MEDS: LEXAPRO PO SCH (10:52)
[2018-08-25] MEDS: FLOMAX PO SCH (21:44)
[2018-08-26] MEDS: ZOSYN 3.375 GM in NS 50 ML IV SCH ×4 (03:26→20:30)
[2018-08-26] MEDS: DUONEB (A & A) INH SCH ×4 (03:44→22:00)
[2018-08-26] MEDS: NEXIUM PO SCH ×2 (05:26→06:11)
[2018-08-26 05:43] LABS: INR 3.52; PROTIME 37.7 Seconds (11.0-16.0)
[2018-08-26] MEDS: HUMALOG SUBQ SCH ×4 (06:11→21:23)
[2018-08-26] MEDS: KLOR-CON PO SCH (08:42)
[2018-08-26] MEDS: CORDARONE PO SCH (08:42)
[2018-08-26] MEDS: LOPRESSOR PO SCH ×2 (08:42→20:29)
[2018-08-26] MEDS: NORCO-7.5 PO PRN (08:42)
[2018-08-26] MEDS: LEXAPRO PO SCH (08:43)
[2018-08-26] MEDS: MILK OF MAGNESIA PO SCH (08:43)
[2018-08-26] MEDS: LASIX PO SCH ×2 (08:43→20:29)
--- NOTE | 2018-08-26 08:54 | PROGRESS NOTE ---
DATE: 08/26/2018 SUBJECTIVE: Mr. Benitez is feeling good. He had a good night's sleep, ate most of his breakfast. OBJECTIVE: Temperature 98.3 degrees, pulse 62, respirations 15, blood pressure 132/45. Pupils are equal round. Lungs are clear in all lung wilkins. Cardiovascular regular rate without murmur or S3. Urine output was 4600 mL. ASSESSMENT AND PLAN: 1. Urinary retention, possible neurogenic bladder secondary to a cerebrovascular accident, enlarged prostate. Armijo catheter in place, difficult to place. Dr. Poli Antonie placed a Armijo catheter. He is on Flomax. Will discuss with Dr. Antoine about when to try and take the catheter out again. 2. Community-acquired pneumonia, on Zosyn and he is better. 3. Right cell foot cellulitis, resolved. 4. Atrial fibrillation on chronic Coumadin. His pro time is 37. We are holding the Coumadin. 5. Respiratory status is good. Still getting his Lasix 40 mg twice a day. 6. He has got a history of atrial fibrillation and he is on amiodarone 200 mg a day. We are getting vancomycin and Zosyn. We stopped the vancomycin. Continue the Zosyn for now. Will repeat another chest x-ray tomorrow. Continue physical therapy. I will repeat a protime as well tomorrow and electrolytes. CBC: Hematocrit is 28 hemoglobin 8. I did give him a unit of packed red blood cells yesterday, I think the day before yesterday. cc: Km Palencia MD
[2018-08-26] MEDS: FLOMAX PO SCH (20:29)
[2018-08-27] MEDS: DUONEB (A & A) INH SCH ×4 (03:12→22:00)
[2018-08-27] MEDS: ZOSYN 3.375 GM in NS 50 ML IV SCH ×4 (04:15→20:58)
[2018-08-27] MEDS: NORCO-7.5 PO PRN ×3 (04:16→16:15)
[2018-08-27 05:41] LABS: BASO# 0.03 X1000 (0.0-0.2); BASO% 0.3 % (0.0-0.8); EOS# 0.26 X1000 (0.0-0.7); EOS% 2.7 % (0.0-10.0); HEMATOCRIT 30.3 % (42.0-52.0); HEMOGLOBIN 8.4 g/dL (14.0-18.0); IMM GRAN# 0.02 X1000 (0.0-0.04); IMM GRAN% 0.2 % (0.0-0.5); LYMPH# 1.99 X1000 (1.2-3.4); LYMPH% 20.5 % (20.5-51.1); MCH 18.6 PG (27-31); MCHC 27.7 g/dL (33-37); MCV 67.2 FL (81-99); MONO# 0.78 X1000 (0.11-0.59); MPV 9.4 FL (7.4-10.4); NEUT# 6.65 X1000 (1.4-6.5); NEUT% 68.3 % (42.2-75.2); PLT 360 X1000 (130-400); RBC 4.51 XMIL (4.7-6.1); RDW 19.9 % (11.5-14.5); WBC 9.73 X1000 (4.8-10.8)
[2018-08-27] MEDS: NEXIUM PO SCH ×2 (05:49→08:06)
[2018-08-27 06:08] LABS: INR 2.84; PROTIME 31.9 Seconds (11.0-16.0)
[2018-08-27 06:11] LABS: AGAP 7; BUN 12 mg/dL (8-22); CALCIUM 8.1 mg/dL (8.8-10.2); CHLORIDE 93 mmol/L (98-107); COSMO 276; CREATININE 0.7 mg/dL (0.7-1.2); ESTIMATED GFR > 60; GLUCOSE 110 mg/dL (70-104); MAGNESIUM 1.8 mg/dL (1.5-2.7); POTASSIUM 3.5 mmol/L (3.5-5.1); SODIUM 138 mmol/L (136-145); TCO2 38 mmol/L (25-35)
--- NOTE | 2018-08-27 07:37 | Diag Imaging Result Doc PS360 ---
EXAM: CHEST-PORTABLE 08/27/2018 HISTORY: pneumonia TECHNIQUE: AP portable at 0647 COMMENT: There is bilateral pleural effusion and/or pleural thickening. This is worsened slightly since 08/22/2018, particularly on the left side. There is diffuse interstitial opacity. The opacity over the left heart border has diminished since the previous study. IMPRESSION: Pleural effusions and pulmonary edema. The possibility of pneumonia cannot be excluded. Electronically signed by Lauro Bass 08/27/2018 7:34 AM
[2018-08-27] MEDS: HUMALOG SUBQ SCH ×5 (08:07→21:08)
[2018-08-27] MEDS: LEXAPRO PO SCH (09:01)
[2018-08-27] MEDS: LOPRESSOR PO SCH ×3 (09:01→20:57)
[2018-08-27] MEDS: MILK OF MAGNESIA PO SCH ×2 (09:01→09:08)
[2018-08-27] MEDS: LASIX PO SCH ×2 (09:01→20:57)
[2018-08-27] MEDS: CORDARONE PO SCH (09:02)
[2018-08-27] MEDS: KLOR-CON PO SCH (09:02)
--- NOTE | 2018-08-27 09:41 | PROGRESS NOTE ---
DATE: 08/27/2018 SUBJECTIVE: Mr. Benitez is, I think, feeling better. He is eating well. Catheter is still in, good urine output. Chest x-ray did show pleural effusions and pulmonary edema, possible pneumonia could not be excluded. Clinically does not appear to have pneumonia. ASSESSMENT AND PLAN: 1. Urinary retention. Suspect neurogenic bladder. Past cerebrovascular accident, enlarged prostate. I am going to try and take out the Armijo catheter. He is on Flomax and I think I am going to put him on Proscar as well and see how he does without the Armijo catheter. 2. Pleural effusions. We will continue to diurese. May decrease his Lopressor as his heart rate is well controlled. 3. History of atrial fibrillation for which he is on Coumadin. We are holding the Coumadin because his protime was 37. 4. He had a hemothorax on the left side with a chest tube. Following that, he got bilateral pulmonary thromboembolisms and that is why he is on the Coumadin. 5. Community-acquired pneumonia suspected so continue Zosyn. 6. Weakness and deconditioning. Continue physical therapy. cc: Km Palencia MD
[2018-08-27] MEDS: PROSCAR PO SCH (11:37)
[2018-08-27] MEDS: FLOMAX PO SCH (21:06)
[2018-08-28] MEDS: DUONEB (A & A) INH SCH ×4 (03:15→19:29)
[2018-08-28] MEDS: ZOSYN 3.375 GM in NS 50 ML IV SCH ×4 (03:33→21:05)
[2018-08-28] MEDS: NORCO-7.5 PO PRN ×3 (04:17→16:34)
[2018-08-28] MEDS: NEXIUM PO SCH (06:23)
[2018-08-28] MEDS: HUMALOG SUBQ SCH ×4 (06:42→21:05)
[2018-08-28] MEDS: LOPRESSOR PO SCH ×2 (08:13→21:05)
[2018-08-28] MEDS: MILK OF MAGNESIA PO SCH (08:14)
[2018-08-28] MEDS: CORDARONE PO SCH (08:14)
[2018-08-28] MEDS: LASIX PO SCH ×2 (08:14→21:05)
[2018-08-28] MEDS: KLOR-CON PO SCH (08:14)
[2018-08-28] MEDS: LEXAPRO PO SCH (08:14)
[2018-08-28] MEDS: PROSCAR PO SCH (08:14)
--- NOTE | 2018-08-28 08:47 | PROGRESS NOTE ---
DATE: 08/28/2018 SUBJECTIVE: Mr. Benitez feels better. He had a good night. He is able to keep the Armijo catheter out. He is eating well. Bowels are moving. He is alert and oriented x3. OBJECTIVE: Vital Signs: Temperature is 98.5 degrees, pulse 57, respirations 17, blood pressure 126/40. Eyes: Pupils are equal and round. Lungs: Clear in all lung wilkins. Cardiovascular: Regular rhythm and rate without murmur or S3. Abdomen: Soft. Skin: Warm and dry. : Urine output is 2400 mL. ASSESSMENT AND PLAN: 1. Urinary retention, suspect neurogenic bladder and cerebrovascular accident, large prostate. He is doing well. Had to put a Armijo catheter in. He had over 800 mL retention. He has been able to keep that out, so I have him on Flomax and Proscar. 2. Pleural effusions, which are minimal. Continue to diurese. 3. History of atrial fibrillation. Rate is in good control. Rate dipped down, and we have decreased his Lopressor. 4. He had a history of hemothorax on the left and required a chest tube. Fortunately, able to drain, and then this was followed a couple weeks later with bilateral pulmonary thromboemboli. So, he has been on Coumadin. Coumadin was elevated when he came in, still running at 31. We are holding the Coumadin, but he is making good progress. Continue physical therapy. We are treating him as potential pneumonia, so he is on Zosyn 3.375 g IV q. 6 hours. We will continue present measures. His lab: We will check electrolytes again, I think on Thursday. cc: Km Palencia MD
[2018-08-28] MEDS: FLOMAX PO SCH (21:05)
[2018-08-29] MEDS: NORCO-7.5 PO PRN ×4 (02:00→21:02)
[2018-08-29] MEDS: ZOSYN 3.375 GM in NS 50 ML IV SCH ×5 (03:17→21:36)
[2018-08-29] MEDS: NEXIUM PO SCH (06:11)
[2018-08-29] MEDS: HUMALOG SUBQ SCH ×4 (06:21→21:35)
--- NOTE | 2018-08-29 08:23 | PROGRESS NOTE ---
DATE: 08/29/2018 SUBJECTIVE: He was sleeping comfortably, breathing comfortably. PHYSICAL EXAMINATION: He has remained afebrile, temperature 98.2 degrees, pulse 90, respirations 19, blood pressure 99/69. His blood pressures ranged from 99-136/46-69. Lungs are clear in all lung wilkins. Cardiovascular Examination: Regular rhythm and rate without murmur or S3. Abdomen is soft. Skin is warm and dry. LABORATORY DATA: From yesterday reviewed. Hematocrit stable at 30, hemoglobin 8.4. Blood sugars have been 148, 104, 134, 146. ASSESSMENT AND PLAN: 1. Urinary retention, doing better. The Armijo catheter is out. He appears to be voiding well. He is on Proscar and he is also on Flomax. 2. Some minimal pleural effusions. Breathing comfortably. 3. Atrial fibrillation. Rate is controlled. The rate got a little slow and we decreased the Lopressor. 4. Past history of hemothorax followed by pulmonary thromboemboli. His prothrombin time was 31 yesterday. We will check it again in the morning. We are holding the Coumadin. cc: Km Palencia MD
[2018-08-29] MEDS: MILK OF MAGNESIA PO SCH (08:58)
[2018-08-29] MEDS: LEXAPRO PO SCH (09:04)
[2018-08-29] MEDS: LASIX PO SCH ×2 (09:05→20:21)
[2018-08-29] MEDS: LOPRESSOR PO SCH ×2 (09:05→20:22)
[2018-08-29] MEDS: PROSCAR PO SCH (09:05)
[2018-08-29] MEDS: CORDARONE PO SCH (09:05)
[2018-08-29] MEDS: KLOR-CON PO SCH (09:05)
[2018-08-29] MEDS: DUONEB (A & A) INH SCH ×4 (09:31→21:36)
[2018-08-29] MEDS: FLOMAX PO SCH (20:21)
[2018-08-30] MEDS: DUONEB (A & A) INH SCH (03:08)
[2018-08-30] MEDS: ZOSYN 3.375 GM in NS 50 ML IV SCH ×2 (03:31→08:55)
[2018-08-30 05:38] LABS: INR 1.27; PROTIME 16.9 Seconds (11.0-16.0)
[2018-08-30 05:59] LABS: AGAP 4; ALB/GLOB RATIO 0.8; ALBUMIN 2.8 g/dL (3.5-5.0); ALKALINE PHOSPHATASE 76 U/L (32-122); BUN 16 mg/dL (8-22); CALCIUM 8.3 mg/dL (8.8-10.2); CHLORIDE 96 mmol/L (98-107); COSMO 280; CREATININE 0.8 mg/dL (0.7-1.2); ESTIMATED GFR > 60; GLUCOSE 115 mg/dL (70-104); GOT 6 U/L (10-34); GPT < 5 U/L (10-44); MAGNESIUM 2.2 mg/dL (1.5-2.7); POTASSIUM 3.4 mmol/L (3.5-5.1); SODIUM 139 mmol/L (136-145); TCO2 39 mmol/L (25-35); TOTAL BILIRUBIN 0.21 mg/dL (0.20-1.00); TOTAL PROTEIN 6.2 g/dL (6.3-8.3)
[2018-08-30] MEDS: NORCO-7.5 PO PRN (06:20)
[2018-08-30] MEDS: NEXIUM PO SCH (06:20)
[2018-08-30] MEDS: HUMALOG SUBQ SCH ×2 (06:21→10:50)
--- NOTE | 2018-08-30 07:03 | Diag Imaging Result Doc PS360 ---
CHEST-PORTABLE - 08/30/2018 INDICATION: pleural effusion COMPARISON: 08/27/2018 FINDINGS: Stable cardiomegaly and pulmonary vascular congestion. Stable small right and moderate left pleural effusions. Stable diffuse interstitial pulmonary edema. IMPRESSION: No change from prior. Electronically signed by Tony Mccollum 08/30/2018 7:01 AM
[2018-08-30 08:00] VITALS: BP 119/46
[2018-08-30] MEDS: LOPRESSOR PO SCH (08:51)
[2018-08-30] MEDS: CORDARONE PO SCH (08:54)
[2018-08-30] MEDS: KLOR-CON PO SCH (08:54)
[2018-08-30] MEDS: LEXAPRO PO SCH (08:55)
[2018-08-30] MEDS: LASIX PO SCH (08:55)
[2018-08-30] MEDS: PROSCAR PO SCH (08:59)
[2018-08-30] MEDS: MILK OF MAGNESIA PO SCH (08:59)
--- NOTE | 2018-08-30 09:26 | DISCHARGE SUMMARY ---
ADMISSION DATE: 08/23/2018 DISCHARGE DATE: 08/30/2018 HISTORY OF PRESENT ILLNESS: This is a 78-year-old patient of mine who presented with shortness of breath. Had increasing shortness of breath over the last couple days. Presented on 08/23/2018. He had some fever and chills prior to arrival. Also complains of paroxysmal nocturnal dyspnea and orthopnea. Stated that he fell on Thursday and hurt his right foot. He is on 3 L of nasal cannula at home. Recently had been treated for a left hemothorax with a chest tube, followed by bilateral pulmonary thromboemboli. He has a distant history of lung cancer, adenocarcinoma, treated with radiation. Admitted. It looked like he had pneumonia and some mild pleural effusions. Also had bladder retention and required a Armijo catheter. He had some delirium and confusion when he presented, and I think that was secondary to his infection and bladder retention. PAST MEDICAL HISTORY: 1. Hypertension. 2. Diabetes mellitus type 2. 3. Hyperlipidemia. 4. Lung cancer, treated with radiation. 5. Coronary artery disease. 6. COPD requiring home O2 for chronic hypoxia. 7. Congestive heart failure, ejection fraction around 45%. 8. He has had bilateral blood clots. 9. He has had a left hemothorax secondary to rib fractures from a fall. PAST SURGICAL HISTORY: 1. Status post CABG done in 2017. 2. Hemothorax, left chest, with requiring chest tube. SOCIAL HISTORY: No tobacco, alcohol, or illicit drugs. FAMILY HISTORY: Positive for diabetes mellitus. ALLERGIES: Lisinopril and Demerol. REVIEW OF SYSTEMS: When he presented, positive for fever and chills. General malaise. He had delirium and confusion on presentation that had been going on for a good 24 hours. Respiratory: Increased work of breathing, paroxysmal nocturnal dyspnea and orthopnea. Cardiovascular: No chest pain or palpitations complained of. Gastrointestinal and Genitourinary: No specific complaints. We did find he had bladder retention. Musculoskeletal and Neurologic: General weakness. Left foot hurting from a fall. Endocrinologic/Hematologic: No significant history. ADMISSION DIAGNOSES: 1. His right foot did appear to have some erythema and some cellulitis. We covered him with vancomycin and we started him on Zosyn for possible pneumonia. 2. Community-acquired pneumonia, treated with Zosyn. Initially started on doxycycline which was stopped 24 hours later. 3. Congestive heart failure. We did diurese him. He had some pleural effusions. Getting Lasix 40 mg twice a day by mouth. 4. Atrial fibrillation. Rate was controlled. He is back on anticoagulant because of bilateral pulmonary thromboemboli and his Coumadin level was high so we held his Coumadin. He did not have any sign of bleeding or petechiae. 5. Hypoxic respiratory failure. He has underlying chronic obstructive pulmonary disease and mild systolic left ventricular dysfunction. HOSPITAL COURSE: He seemed to improve. The Armijo catheter helped. We put him on Flomax. I started him on some Proscar. Able to discontinue the Armijo catheter. The catheter was hard to put in and Dr. Poli Antoine actually had to put the catheter in. His followup chest x-ray on 08/30/2018, stable cardiomegaly, pulmonary vascular congestion stable, right and moderate left pleural effusions stable, diffuse interstitial pulmonary edema but breathing comfortably with his nasal cannula. His renal functions seemed to tolerate the diuresis well. Creatinine 0.8. Electrolytes today, 08/30/2018, sodium 139, potassium 3.4, chloride 96, bicarb was 39, BUN 16, creatinine 0.8. Blood sugars 131, 141, 115, 107. I think he is ready for discharge. He will go home with home health. We will continue his current medication of DuoNebs as needed q.6 hours, amiodarone 200 mg a day, Lexapro 10 mg a day, Nexium 40 mg a day, Proscar 5 mg a day, Lasix we will continue at 40 mg p.o. b.i.d. He has [place] as needed for pain which is 7.5, milk of magnesia as needed with 30 mL daily, Lopressor 12.5 mg q.12 hours, Flomax 0.4 mg at bedtime, and Klor-Con 40 mEq which will continue daily. He will continue on his 3 L nasal cannula and get home health to help with physical therapy and rehab. cc: Km Palencia MD
== END 2018-08-30 12:39 | disposition home health service (06) | DRG 291 ==
LOC: SUPCPDRO → ED 22:34 → 3S 08-23 06:13 → SUATTDRO 08-23 06:13 → 3S 08-23 06:36
PROVIDERS: ADMIT Emergency Medicine; ATTEND Emergency Medicine
CPT/HCPCS: 36430; 70450; 71010; 71045; 72125; 73630; 80048; 80053; 81001; 82550; 82607; 82728; 82746; 82805; 82948; 83540; 83550; 83605; 83735; 83880; 84439; 84443; 84484; 85025; 85379; 85610; 85730; 86850; 86900; 86901; 86920; 87040; 93005; 94640; 94761; 96365; 96366; 96367; 96368; 96375; 97110; 97162; 97166; 97530; 99285; A9270; J0456; J0696; J1815; J1940; J2543; J2930; J3370; J7040; J7050; P9016; S0138; XXXXX

== ENCOUNTER 2019-05-11 07:34 | Inpatient (IN) ==
--- NOTE | 2019-05-11 08:17 | EKG Report ---
Test Performed on : 05/11/2019 07:57:47 AM Test Reason : sob Blood Pressure : / mmHG Vent. Rate : 050 BPM Atrial Rate : 050 BPM P-R Int : 298 ms QRS Dur : 178 ms QT Int : 542 ms P-R-T Axes : 079 -39 109 degrees QTc Int : 494 ms Sinus bradycardia. with 1st degree AV block. Left axis deviation Left bundle branch block Abnormal ECG When compared with ECG of 22-AUG-2018 22:42, No significant change was found Unconfirmed Result
[2019-05-11] MEDS ORDERED: DUONEB (A & A) INH ONE (08:20)
--- NOTE | 2019-05-11 08:23 | PROVIDER DOCUMENTATION ---
HPI-Respiratory General - General Chief Complaint: Shortness of Breath Stated Complaint: SOB Time Seen by Provider: 05/11/19 08:10 Source: patient Allergies/Adverse Reactions: Patient Allergies Allergy/AdvReac Type Severity Reaction Status Date / Time lisinopril Allergy Intermediate HIVES Verified 05/11/19 08:18 meperidine HCl * Allergy Intermediate Unknown Verified 05/11/19 08:18 [From Demerol] Home Medications: Home Medication List Medication Instructions Recorded Confirmed Last Taken Type Escitalopram [Lexapro] 1 tab PO DAILY 05/07/18 05/11/19 Unknown History Amiodarone [Cordarone] 200 mg PO DAILY tab 06/04/18 05/11/19 Unknown Rx Metoprolol [Lopressor] 25 mg PO Q12H tab 06/04/18 05/11/19 Unknown Rx Potassium Chloride E.r. [Klor-Con] 40 meq PO DAILY tab 06/04/18 05/11/19 Unknown Rx Finasteride [Proscar] 5 mg PO DAILY 30 Days #30 tab 08/30/18 05/11/19 Unknown Rx Amoxicillin/Potassium Clav 1 ea PO TID #30 tab 12/22/18 Unknown Rx [Augmentin 500-125 Tablet] Losartan [Cozaar] 25 mg PO DAILY 05/11/19 05/11/19 Unknown History Warfarin [Coumadin] 1 mg PO QHS 05/11/19 05/11/19 Unknown History - History of Present Illness-Resp Nature of Presenting Problem: 79 y/o WM c/o productive cough and fever for the past week and came to the ER this am due to increased SOB with his sats dropping into low 80% and new onset fever. Pt adds that he is on oxygen at home 2 L/NC. Pt denies any CP or other symptoms in the ER. Quality of Pain: reports: none Severity in ED: reports: moderate Onset/Duration: reports: this morning Timing: reports: still present Exposure: reports: unknown cause Cough Quality/Degree: reports: mild Episode Frequency: occasional episodes Current Respiratory Medication Therapy: Initiated see nurses note Modifying Factors: improves with: oxygen Associated Symptoms: reports: shortness of breath Similar Symptoms Previously?: Yes Recently seen or treated by another doctor?: No Review of Systems - Adult - REVIEW OF SYSTEMS - ADULT Constitutional: reports: no symptoms reported, see HPI Eyes: reports: no symptoms reported, see HPI Ears, Nose, Mouth & Throat: reports: no symptoms reported, see HPI Cardiovascular: reports: no symptoms reported, see HPI Respiratory: reports: see HPI, shortness of breath Gastrointestinal: reports: no symptoms reported, see HPI Genitourinary: reports: no symptoms reported, see HPI Musculoskeletal: reports: no symptoms reported, see HPI Integumentary: reports: no symptoms reported, see HPI Neurological: reports: no symptoms reported, see HPI Psychiatric: reports: no symptoms reported, see HPI Endocrine: reports: no symptoms reported, see HPI Hematologic/Lymphatic: reports: no symptoms reported, see HPI Allergic/Immunologic: reports: no symptoms reported, see HPI All Other Systems: Reviewed and Negative Past History - Adult - PAST MEDICAL HISTORY-ADULT Review of Records: reports: Nursing Assessment Review, Medications Reviewed, Social history reviewed & non-contributory. Major Childhood Illnesses: reports: denies history Cardiovascular: reports: blood clots, CAD, HTN, hyperlipidemia Respiratory: reports: cancer Gastrointestinal: reports: denies history Obstetrical/Gynecological: reports: denies history Genitourinary: reports: denies history Musculoskeletal: reports: denies history Neurological: reports: CVA Endocrine/Immune: reports: Diabetes Other Conditions: reports: other - PRIOR SURGERIES/PROCEDURES Surgical/Procedure History: reports: CABG - IMMUNIZATION STATUS Childhood Immunizations: See Nurse Assessment Flu Vaccine: See Nurse Assessment - FAMILY HISTORY Family History: reviewed, not pertinent Physical Exam-General - PHYSICAL EXAM-ADULT Initial Vital Signs Reviewed: Yes - CONSTITUTIONAL General Appearance: alert, mild distress - EYES Eyes: PERRL/EOMI - HEAD, EARS, NOSE, MOUTH & THROAT HENMT: normocephalic/atraumatic, moist mucous membranes - NECK Neck: non-tender, full range of motion, supple, normal inspection - RESPIRATORY Respiratory: chest non-tender, normal breath sounds, no pleuratic chest pain, no respiratory distress, no accessory muscle use, wheezing - CARDIOVASCULAR Cardiovascular: normal peripheral pulses, regular rate, rhythm, no edema, no gallop, no JVD, no murmur - GASTROINTESTINAL (ABDOMEN) Abdominal Exam: normal bowel sounds, non tender, soft, no organomegaly, no pulsatile mass - LYMPHATIC Lymphatic: no adenopathy - MUSCULOSKELETAL Back Exam: normal inspection, no CVA tenderness, no vertebral tenderness Extremity: normal range of motion, non-tender, normal gait, normal inspection, no pedal edema, no calf tenderness, normal capillary refill - SKIN Integumentary: normal color, normal turgor - 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 as tested, grossly normal, no motor/sensory deficits - PSYCHIATRIC Psych/Mental Status: normal mood/affect, normal thought content, normal thought process, oriented x 3 - HEART Score HEART Score: History: Slightly Suspicious HEART Score: ECG: Non-Specific Repolarization Disturbance/LBBB/PM HEART Score: Age: > or = 65 Years HEART Score: Risk Factors for Atherosclerotic Disease: 1 or 2 Risk Factors HEART Score: Troponin: < or = Normal Limit Total HEART Score:: 4 Progress - PLAN OF CARE/RESULTS Progress/Plan/Lab Results: Vital Signs - 8 hr 05/11/19 11:30 05/11/19 13:00 05/11/19 15:30 Pulse Rate 50 L 51 L 48 L Respiratory Rate 18 18 18 Blood Pressure 145/63 159/63 150/61 O2 Sat by Pulse Oximetry 98 100 97 05/11/19 07:52 Influenza Screen - Final Nasopharyngeal Laboratory Results - last 24 hr 05/11/19 05/11/19 05/11/19 08:00 08:00 08:00 WBC 8.23 RBC 4.86 Hgb 9.3 L Hct 34.2 L MCV 70.4 L MCH 19.1 L MCHC 27.2 L RDW Std Deviation 18.2 H Plt Count 289 MPV 9.7 Immature Gran % (Auto) 0.0 Neut % (Auto) 73.5 Lymph % (Auto) 16.6 L Powell % (Auto) 6.8 Eos % (Auto) 2.4 Baso % (Auto) 0.7 Immature Gran # (Auto) 0.00 Neut # (Auto) 6.04 Lymph # (Auto) 1.37 Powell # (Auto) 0.56 Eos # (Auto) 0.20 Baso # (Auto) 0.06 PT INR PTT (Actin FS) Specimen Type Sample Site pH pCO2 pO2 HCO3 Base Excess Oxyhemoglobin ABG O2 Sat (Calculated) ABG O2 Saturation ABG Carboxyhemoglobin ABG Methemoglobin Km Test A-a O2 Difference Total Hemoglobin Lactate Liter Flow Blood Gas Modality FiO2 % Sodium 139 Potassium 4.4 Chloride 101 Carbon Dioxide 30 Anion Gap 8 BUN 20 Creatinine 0.9 Estimated GFR/1.73 m2 > 60 BUN/Creatinine Ratio 22 Glucose 143 H Calculated Osmolality 283 Calcium 8.1 L Total Bilirubin 0.23 AST 18 ALT 7 L Alkaline Phosphatase 88 Troponin T High Sens [id number] Pept 2873 H Total Protein 6.6 Albumin 2.9 L Globulin 3.7 Albumin/Globulin Ratio 0.8 05/11/19 05/11/19 05/11/19 08:00 08:00 09:10 WBC RBC Hgb Hct MCV MCH MCHC RDW Std Deviation Plt Count MPV Immature Gran % (Auto) Neut % (Auto) Lymph % (Auto) Powell % (Auto) Eos % (Auto) Baso % (Auto) Immature Gran # (Auto) Neut # (Auto) Lymph # (Auto) Powell # (Auto) Eos # (Auto) Baso # (Auto) PT 19.4 H INR 1.60 PTT (Actin FS) 34.2 Specimen Type ARTERIAL Sample Site L RADIAL pH 7.38 pCO2 56 H* pO2 70 HCO3 30.2 H Base Excess 6.8 H Oxyhemoglobin 94.6 L ABG O2 Sat (Calculated) 13.1 L ABG O2 Saturation 97.1 ABG Carboxyhemoglobin 2.00 ABG Methemoglobin 0.5 Km Test YES A-a O2 Difference 117.0 Total Hemoglobin 9.8 L Lactate 0.70 Liter Flow 4.0 Blood Gas Modality CANNULA FiO2 % 36.0 Sodium Potassium Chloride Carbon Dioxide Anion Gap BUN Creatinine Estimated GFR/1.73 m2 BUN/Creatinine Ratio Glucose Calculated Osmolality Calcium Total Bilirubin AST ALT Alkaline Phosphatase Troponin T High Sens 24 H Gtr-G-Adatsjznljs Pept Total Protein Albumin Globulin Albumin/Globulin Ratio Orders Category Date Time Status Admit - [facility] Routine AdmDCTranf 05/11/19 10:56 Active Activity - Up with Assistance ORDERED Care 05/11/19 10:56 Active Apply Mechanical Device [QM] ORDERED Care 05/11/19 10:56 Active DVT/PE Risk Assess/Protocol [QM] ORDERED Care 05/11/19 10:56 Active FSBS/Accucheck Result AC + HS Care 05/11/19 10:56 Active Intake and Output-Strict ORDERED Care 05/11/19 10:56 Active Nursing- Assist w/ IS as order ORDERED Care 05/11/19 10:56 Active Resuscitation Status Routine Care 05/11/19 10:19 Ordered Saline Loc DIRECTED Care 05/11/19 10:56 Active Turn, Cough and Deep Breathe Q4HR.AWAKE Care 05/11/19 10:56 Active Vital Signs Order Q 4-HR ASSESS Care 05/11/19 10:56 Active Diabetic Diet Diet 05/11/19 10:56 Active CHEST-1 VIEW [RAD] Stat Exams 05/11/19 08:12 Completed ABG [RESP] Routine Lab 05/11/19 09:10 Completed CBC WITH DIFF [HEME] Routine Lab 05/12/19 06:00 Uncollected CBC WITH ELECTRONIC DIFF [HEME] Stat Lab 05/11/19 08:00 Completed COMPREHENSIVE METABOLIC PANEL [CHEM] Routine Lab 05/12/19 06:00 Uncollected COMPREHENSIVE METABOLIC PANEL [CHEM] Stat Lab 05/11/19 08:00 Completed INFLUENZA SCREEN A/B Stat Lab 05/11/19 07:52 Completed PRO B-NATRIURETIC PEPTIDE Stat Lab 05/11/19 08:00 Completed PROTIME WITH INR [COAG] Stat Lab 05/11/19 08:00 Completed PTT [COAG] Stat Lab 05/11/19 08:00 Completed TROPONIN T HIGH SENSITIVITY Stat Lab 05/11/19 08:00 Completed Acetaminophen [Tylenol] Med 05/11/19 10:56 Active 650 mg PO Q4-6H PRN PRN Albuterol 2.5MG/Ipratrop 0.5MG [Duoneb (A & A)] Med 05/11/19 08:20 Discontinued 3 ml INH NOW ONE Amiodarone [Cordarone] Med 05/12/19 09:00 Active 200 mg PO DAILY CefTRIAXONE [Rocephin] 1 gm Med 05/11/19 10:56 Active 0.9% Sodium Chloride Inj [Ns] 50 ml IV Q24H Escitalopram [Lexapro] Med 05/12/19 09:00 Active 10 mg PO DAILY Finasteride [Proscar] Med 05/12/19 09:00 Active 5 mg PO DAILY Furosemide [Lasix] Med 05/11/19 10:56 Active 40 mg IV Q12H Metoprolol [Lopressor] Med 05/11/19 10:56 Active 25 mg PO Q12H Pantoprazole [Protonix] Med 05/12/19 07:00 Active 40 mg PO DAILY@0700 Potassium Chloride E.r. [Klor-Con] Med 05/12/19 09:00 Active 40 meq PO DAILY Aerosol Treatments Routine Ot 05/11/19 08:21 Completed Aerosol Treatments Stat Oth 05/11/19 08:21 Completed Incentive Spirometer Q4HR.AWAKE Ot 05/11/19 13:00 Completed Incentive Spirometer Q4HR.AWAKE Ot 05/11/19 17:00 Completed Incentive Spirometer Q4HR.AWAKE Ot 05/11/19 21:00 Completed Incentive Spirometer Q4HR.AWAKE Ot 05/12/19 01:00 Completed Incentive Spirometer Q4HR.AWAKE Ot 05/12/19 05:00 Completed Incentive Spirometer Q4HR.AWAKE [facility] 05/12/19 09:00 Completed Oxygen Device Routine [facility] 05/11/19 10:56 Completed Peak Flow BID Ot 05/11/19 21:00 Completed Peak Flow BID [facility] 05/12/19 09:00 Completed EKG [EKG] Stat Ther 05/11/19 08:12 Draft Transfer/Admit Order [TRANSFER] Routine Transfer 05/11/19 10:18 Completed Result Diagrams: 05/11/19 08:00 05/11/19 08:00 Departure - Departure Date of Disposition Decision: 05/11/19 Time of Disposition Decision: 10:17 DIAGNOSIS: Pulmonary hypertensive venous disease Disposition: ADMITTED INPATIENT 09 Certified Medical Emergency: Emergent Condition: Fair - Critical Care Note This patient required my direct & personal management of CC.: No Attestation - Physician/ JOHANN Attestation Patient care was provided by Advanced Practice Provider:: No The physician spent face to face time with patient:: Yes Advanced Practice Provider documentation review:: Supervising physician onsite and consulted in the evaluation and care of this patient. The physician did have a face to face encounter with the patient.
--- NOTE | 2019-05-11 08:37 | Diag Imaging Result Doc PS360 ---
EXAM: CHEST-1 VIEW 05/11/2019 HISTORY: sob TECHNIQUE: AP portable upright at 0822 COMMENT: There is bilateral pleural thickening and/or loculated effusion. This appears worse on the left than on 10/15/2018. The inspiration is, however, less optimal than on the previous study. There is apparent interstitial pulmonary edema. There is cardiomegaly. IMPRESSION: Pulmonary edema. Pleural thickening and/or effusion. Electronically signed by Lauro Bass 05/11/2019 8:35 AM
[2019-05-11 08:38] LABS: BASO# 0.06 X1000 (0.0-0.2); BASO% 0.7 % (0.0-0.8); EOS% 2.4 % (0.0-10.0); HEMATOCRIT 34.2 % (42.0-52.0); HEMOGLOBIN 9.3 g/dL (14.0-18.0); LYMPH# 1.37 X1000 (1.2-3.4); LYMPH% 16.6 % (20.5-51.1); MCH 19.1 PG (27-31); MCHC 27.2 g/dL (33-37); MCV 70.4 FL (81-99); MONO# 0.56 X1000 (0.11-0.59); MONO% 6.8 % (1.7-9.3); MPV 9.7 FL (7.4-10.4); NEUT# 6.04 X1000 (1.4-6.5); NEUT% 73.5 % (42.2-75.2); PLT 289 X1000 (130-400); RBC 4.86 XMIL (4.7-6.1); RDW 18.2 % (11.5-14.5); WBC 8.23 X1000 (4.8-10.8)
[2019-05-11 08:47] LABS: INR 1.6; PROTIME 19.4 Seconds (11.0-16.0)
[2019-05-11 08:48] LABS: PTT 34.2 Seconds (22.3-41.8)
[2019-05-11 09:04] LABS: ALB/GLOB RATIO 0.8; ALBUMIN 2.9 g/dL (3.5-5.0); ALKALINE PHOSPHATASE 88 U/L (32-122); BUN 20 mg/dL (8-22); CALCIUM 8.1 mg/dL (8.8-10.2); CHLORIDE 101 mmol/L (98-107); COSMO 283; CREATININE 0.9 mg/dL (0.7-1.2); ESTIMATED GFR > 60; GLUCOSE 143 mg/dL (70-104); GOT 18 U/L (10-34); GPT 7 U/L (10-44); TOTAL BILIRUBIN 0.23 mg/dL (0.20-1.00); TOTAL PROTEIN 6.6 g/dL (6.3-8.3)
[2019-05-11 09:14] LABS: ALLEN TEST YES; BE 6.8 mmoll (-3.0-3.0); BLOOD TYPE ARTERIAL; HCO3-(ACT) 30.2 mmoll (20.0-26.0); METHB 0.5 % (0.0-1.5); O2(CT) 13.1 mL/dL (15.0-23.0); O2HB 94.6 % (95.0-99.0); PO2(98.6) 70 mmHg (60-100); SAMPLE BLOOD; SAO2 97.1 % (95.0-100.0); THB 9.8 g/dL (11.5-17.4); pH(98.6) 7.38 (7.35-7.45)
[2019-05-11 09:17] LABS: MODALITY CANNULA; PCO2(98.6) 56 mmHg (35-45)
--- NOTE | 2019-05-11 09:55 | ED EKG INTERP ---
This chart was entered by Danielle Barboza Scribe, acting as scribe for Florin Anglin MD. EKG Interpretation - EKG Time of EKG reading by physician:: 07:57 EKG Read and Signed by:: Florin Anglin Rate: 50 Rhythm: sinus josé manuel w/1st degree av block [place]: left (deviation) QRS: LBB NV Interval: normal ST Wave: normal Attestation - Physician/ JOHANN Attestation Patient care was provided by Advanced Practice Provider:: No The physician spent face to face time with patient:: Yes Advanced Practice Provider documentation review:: Supervising physician onsite and consulted in the evaluation and care of this patient. The physician did have a face to face encounter with the patient. This chart was documented by the indicated scribe, (Danielle Barboza Scribe) and accurately reflects the services I performed and decisions made by me, Florin Anglin MD, as attested by the provider's signature.
--- NOTE | 2019-05-11 10:50 | HISTORY AND PHYSICAL ---
HISTORY OF PRESENT ILLNESS: Mr. Benitez said that for the last 2 weeks, he is getting progressively short of breath. This morning, he just felt like he could not get his air. He came into the emergency room, and his sats were in the low 80s, even on 4 L O2. He denies chest pain. Workup in the emergency room did not reveal any pneumonia, but it appeared to have pulmonary venous hypertension with an elevated proBNP. This is a 79-year-old, white male, well known to me. PAST MEDICAL HISTORY: 1. Hypertension. 2. Diabetes mellitus type 2. 3. Hyperlipidemia. 4. Lung cancer, treated with radiation. 5. Coronary artery disease. 6. COPD. 7. Previous congestive heart failure with ejection fraction measured around 45%. 8. He has had a history of DVT. 9. He had a hemothorax and large left pleural effusion that, for a time, we were concerned we would have to do decortication. However, this seemed to resolve. He is back on blood thinner now. PAST SURGICAL HISTORY: 1. CABG done in 2017. 2. Left pleural effusion with thoracentesis. SOCIAL HISTORY: No tobacco or alcohol or illicit drugs. FAMILY HISTORY: Positive for diabetes mellitus. ALLERGIES: Allergic to lisinopril and Demerol. REVIEW OF SYSTEMS: No weight gain or loss. No fever or chills, although he has had some sweating. PHYSICAL EXAMINATION: GENERAL: In the emergency room, he appeared to be comfortable with nasal cannula. He was awake, alert, and oriented x3. is at the bedside. HEENT: Pupils are equal and round. LUNGS: Clear in all lung wilkins. CARDIOVASCULAR: Regular rhythm and rate without murmur or S3. ABDOMEN: Soft. SKIN: Warm and dry. VITAL SIGNS: Temp is 97.5 degrees, pulse 50, respirations 16, O2 saturation is 96%. IMAGING AND LABORATORY DATA: White count is 8230, hematocrit is 34, hemoglobin is 9.3, platelet count 289,000. Sodium 139, potassium 4.4, chloride 101, bicarb 8, BUN 20, creatinine 0.9. Transaminase is unremarkable. ProTime is 19.4, INR 1.6. Urinalysis was pending. Blood gas: PH is 7.38, pCO2 is 56, PO2 is 70, O2 saturation is 94%; that was on 36% FiO2. Chest x-ray: Pulmonary edema, pleural thickening versus effusion. ASSESSMENT AND PLAN: 1. Pulmonary venous hypertension. I am going to try and diurese him a little bit. His blood pressure will follow afterload. Will repeat an echocardiogram to look at his left ventricular function. He has no sign of infection at this point, but I will put him on Rocephin 1 gram intravenously daily. 2. History of lung cancer, treated with radiation. 3. History of diabetes mellitus type 2. 4. General weakness and deconditioning. Will evaluate with Physical Therapy. cc: Km Palencia MD
[2019-05-11] MEDS ORDERED: TYLENOL PO PRN (10:56)
[2019-05-11] MEDS: LASIX IV SCH ×3 (11:22→21:08)
[2019-05-11] MEDS: ROCEPHIN 1 GM in NS 50 ML IV SCH (11:22)
[2019-05-11] MEDS: LOPRESSOR PO SCH ×3 (11:22→21:08)
[2019-05-11 22:09] LABS: SODIUM 140 mmol/L (136-145)
[2019-05-11 22:10] LABS: AGAP 14; POTASSIUM 4.5 mmol/L (3.5-5.1); TCO2 25 mmol/L (25-35)
[2019-05-12] MEDS: PROTONIX PO SCH (06:17)
[2019-05-12 07:19] LABS: BASO# 0.04 X1000 (0.0-0.2); BASO% 0.5 % (0.0-0.8); EOS# 0.18 X1000 (0.0-0.7); EOS% 2.1 % (0.0-10.0); HEMATOCRIT 34.1 % (42.0-52.0); HEMOGLOBIN 9.2 g/dL (14.0-18.0); IMM GRAN# 0.02 X1000 (0.0-0.04); IMM GRAN% 0.2 % (0.0-0.5); LYMPH# 2.16 X1000 (1.2-3.4); MCV 70.3 FL (81-99); MONO# 0.74 X1000 (0.11-0.59); MONO% 8.6 % (1.7-9.3); MPV 9.9 FL (7.4-10.4); NEUT# 5.49 X1000 (1.4-6.5); NEUT% 63.6 % (42.2-75.2); PLT 301 X1000 (130-400); RBC 4.85 XMIL (4.7-6.1); RDW 18.3 % (11.5-14.5); WBC 8.63 X1000 (4.8-10.8)
[2019-05-12 07:57] LABS: BANDS 2 % (0-1); LYMPHS 18 % (21-51); SEGS 72 % (42-75)
[2019-05-12 08:05] LABS: AGAP 10; ALB/GLOB RATIO 0.8; ALBUMIN 2.8 g/dL (3.5-5.0); ALKALINE PHOSPHATASE 86 U/L (32-122); BUN 24 mg/dL (8-22); CALCIUM 8.5 mg/dL (8.8-10.2); CHLORIDE 100 mmol/L (98-107); COSMO 287; CREATININE 1.1 mg/dL (0.7-1.2); ESTIMATED GFR > 60; GLUCOSE 88 mg/dL (70-104); GOT 10 U/L (10-34); GPT 6 U/L (10-44); POTASSIUM 3.6 mmol/L (3.5-5.1); SODIUM 142 mmol/L (136-145); TCO2 32 mmol/L (25-35); TOTAL BILIRUBIN 0.22 mg/dL (0.20-1.00); TOTAL PROTEIN 6.5 g/dL (6.3-8.3)
[2019-05-12] MEDS: LASIX IV SCH ×3 (08:33→20:28)
[2019-05-12] MEDS: LEXAPRO PO SCH (08:33)
[2019-05-12] MEDS: CORDARONE PO SCH (08:33)
[2019-05-12] MEDS: KLOR-CON PO SCH (08:33)
[2019-05-12] MEDS: PROSCAR PO SCH (08:34)
[2019-05-12] MEDS: LOPRESSOR PO SCH ×2 (08:34→20:29)
[2019-05-12] MEDS: ROCEPHIN 1 GM in NS 50 ML IV SCH (11:06)
--- NOTE | 2019-05-12 12:23 | PROGRESS NOTE ---
DATE: 05/12/2019 SUBJECTIVE: Mr. Benitez is breathing much better. He wants to go home, but much more comfortable. OBJECTIVE: Vital Signs: He has remained afebrile, temp 98.4 degrees, pulse 50, respirations 14, blood pressure 146/51. HEENT: Pupils are equal and round. Neck: No distended neck veins. Lungs: Clear in all lung wilkins. Cardiovascular: Regular rhythm and rate without murmur or S3. Abdomen: Soft. Skin: Warm and dry. Extremities: No pedal edema. ASSESSMENT AND PLAN: 1. Pulmonary venous hypertension. He is responding to diuresis well. I think he can go home tomorrow. Will check another chest x-ray in the morning. I think we had an echocardiogram that was ordered, but I think it would be worthwhile to look again at his left ventricular function. 2. General weakness and deconditioning. Working with Physical Therapy. 3. Diabetes mellitus type 2. 4. Hyperlipidemia. 5. He has had lung cancer, treated with radiation. He had a hemothorax that seems to have resolved. 6. Coronary artery disease. No sign of active ischemia. 7. Chronic obstructive pulmonary disease. 8. Previous history of congestive heart failure with ejection fraction of 45%. We are going to recheck an echocardiogram. 9. History of deep venous thrombosis. 10. As I mentioned, he had a hemothorax, large left pleural effusion in the past, and this seems to have resolved. He is status post coronary artery bypass graft in 2017. REVIEW OF ORDERS: Will continue Lasix 40 mg IV every 12 hours. LABORATORY DATA: His electrolytes this morning look good. His creatinine is 1.1, sodium is 142, potassium 3.6, chloride 100, BUN 24, creatinine 1.1. cc: Km Palencia MD
--- NOTE | 2019-05-12 15:19 | ECHO REPORT ---
ORDER DATE: 05/12/2019 INTERPRETING PHYSICIAN: Anastacio Rubi MD. CLINICAL INDICATIONS: A 79-year-old patient with CHF. M-MODE MEASUREMENTS: Left ventricle end diastole: 5.4 cm. Left ventricle end systole: 4.6 cm. Posterior wall: 1.0 cm. Interventricular septum: 1.0 cm. Left atrium: 5.1 cm. Aortic diameter: 3.5 cm. SUMMARY OF 2-DIMENSIONAL IMAGIN. The study is difficult. Global left ventricular systolic function appears to be significantly impaired. Visually appears to be in the order of 30%. By computer tracing, it is somewhere in the neighborhood of 30% to 35%. 2. There is significant impairment of the inferior wall, inferiorly interventricular septum, and also to some extent the posterior wall. That raises concern for coronary heart disease. 3. The left atrium is significantly enlarged. 4. The aortic valve has 3 cusps, they open normally. Color flow mapping indicates mild degree of regurgitation. 5. The pulmonic valve shows mild degree of regurgitation. 6. The tricuspid valve also shows mild degree of regurgitation. 7. Inferior vena cava is not dilated. 8. Pulmonary pressure is estimated at 23 mmHg. 9. The mitral valve shows [id number] degree of regurgitation. 10.The pulse wave Doppler of mitral inflow shows "normal" E/A ratio. 11.Tissue Doppler of septal and lateral mitral annulus averages 5 cm. 12.There is elevation of E/E prime ratio indicating elevation of left atrial pressure with diastolic dysfunction. 13.There is no pericardial effusion. There is no mass and no thrombus. 14.The right-sided chambers do not appear to be dilated. Clinical correlation is recommended. The study is consistent with an ischemic cardiomyopathy. cc: MD Km Christianson MD
[2019-05-13] MEDS: PROTONIX PO SCH ×2 (05:45→06:07)
[2019-05-13 07:11] LABS: AGAP 7; BUN 26 mg/dL (8-22); CALCIUM 8.4 mg/dL (8.8-10.2); CHLORIDE 99 mmol/L (98-107); COSMO 289; CREATININE 0.9 mg/dL (0.7-1.2); ESTIMATED GFR > 60; GLUCOSE 113 mg/dL (70-104); MAGNESIUM 1.9 mg/dL (1.5-2.7); POTASSIUM 3.7 mmol/L (3.5-5.1); SODIUM 142 mmol/L (136-145); TCO2 36 mmol/L (25-35)
[2019-05-13 08:01] LABS: FREE T4 1.26 ng/dL (0.93-1.70); TSH 2.47 uIUmL (0.27-4.20)
[2019-05-13] MEDS: CORDARONE PO SCH (08:03)
[2019-05-13] MEDS: LASIX IV SCH (08:03)
[2019-05-13] MEDS: LOPRESSOR PO SCH (08:03)
[2019-05-13] MEDS: KLOR-CON PO SCH (08:03)
[2019-05-13] MEDS: LEXAPRO PO SCH (08:03)
[2019-05-13] MEDS: PROSCAR PO SCH (08:03)
--- NOTE | 2019-05-13 09:10 | Diag Imaging Result Doc PS360 ---
EXAM: CHEST-2 VIEWS HISTORY: chf TECHNIQUE: Two views COMPARISON: 05/11/2019 FINDINGS: Moderate sized left pleural effusion and/or thickening with volume loss to the left lung. Left lung infiltrates are actually less prominent. Right lung infiltrates are also slightly less pronounced. It is a small right pleural effusion or the sternal wires and surgical clips. Heart is borderline mildly prominent. IMPRESSION: Mild interval improvement. Electronically signed by Yong Zamudio 05/13/2019 9:08 AM
--- NOTE | 2019-05-13 10:31 | DISCHARGE SUMMARY ---
ADMISSION DATE: 05/11/2019 DISCHARGE DATE: HISTORY: This is a 79-year-old patient of mine. For the last 2 weeks, he has got progressively more short of breath and had trouble getting his air in. It worsened. They checked his saturations at home. They were running in 80s in the emergency room. He was running O2 saturations of low 80s on 4 L O2 nasal cannula. So, on workup, it looked like he had some pulmonary venous hypertension. No chest pain. No sign of cardiac ischemia. PAST MEDICAL HISTORY: 1. Hypertension. 2. Diabetes mellitus type 2. 3. Hyperlipidemia. 4. Lung cancer treated with radiation. 5. Coronary artery disease. 6. COPD. 7. Previous congestive heart failure with ejection fraction measured at 45%. 8. Has a history of DVT. 9. He has had a history of a hemothorax and large left pleural effusion for a while. HOSPITAL COURSE: We thought we had to do decorticization. We repeated his echocardiogram here. Study was difficult. Global left ventricular systolic function appears to be significantly impaired. Ejection fraction 30%, somewhere in the neighborhood of 30% to 35%. There is significant impairment of the inferior wall, inferior interventricular septum and to some extent the posterior wall. The left atrium significantly enlarged. Pulmonary pressure is estimated at 23 mmHg. He did have normal E-to-A ratios. There was an elevation of E-E prime ratio indicating elevation of left atrial pressure with diastolic dysfunction. No pericardial effusion. The patient responded to diuresis, was breathing much better. Repeat chest x-ray this morning, PA and lateral, mild improvement, and he wanted to go home, so I will get him ready to go home. DISCHARGE MEDICATIONS: He will be on 1. Cordarone 200 mg a day. 2. Lexapro 10 mg a day. 3. Proscar 5 mg a day. 4. Lopressor 25 mg b.i.d. 5. Protonix 40 mg a day. 6. Klor-Con 40 mEq daily. 7. I will put him on Lasix 40 mg, which he will take in the morning and at 1 o'clock p.m. cc: Km Palencia MD
[2019-05-13] MEDS: ROCEPHIN 1 GM in NS 50 ML IV SCH (11:07)
[2019-05-13 12:14] VITALS: BP 161/62
== END 2019-05-13 14:45 | disposition home or self-care (01) | DRG 292 ==
LOC: SUPCPDRO → ED 07:34 → 2N 16:11
PROVIDERS: ADMIT Emergency Medicine; ATTEND Emergency Medicine